=== PATIENT | female | born 1965 | race Caucasian/White ===

== ENCOUNTER 2022-10-24 15:34 | Outpatient (REF) | payer BC, SELFPAY | END 2022-10-24 15:35 | disposition home or self-care (01) | LOC: HO.HOSX 15:34 | PROVIDERS: Visit Provider Physician Assistant | DX: Z13.89 Encounter for screening for other disorder (principal) ==

== ENCOUNTER 2022-10-24 15:34 | Outpatient (AMB) | payer BC, SELFPAY ==
--- NOTE | 2022-10-24 15:56 | A.SPINEOV_ITS ---
Intake Intake Visit Reasons: Cervical myelopathy Intake Note: Mrs. Vila is here today for a f/u C/Spine surgery done 2021 @ the [place] office. Harvester Operator Required: No Assessment & Plan Assessment & Plan (1) Cervical radiculopathy: Code(s): M54.12 - Radiculopathy, cervical region Plan Mrs Vila is here in follow-up. This is a patient who underwent C4-C6 anterior cervical diskectomy done in January of last year for cervical myelopathy. She did see some improvement after surgery but her hands have still been numb, and she has dealt with some on and off neck issues. More recently though she has had developed a severe neck pain which radiates across the top of her neck into her trapezius towards her shoulder. Again her hands remain numb and weak. She is also dealing with a shoulder issue. She is going to have surgery on that in the upcoming year. On exam her hands remain weak and she still hyperreflexic. Her postoperative MRI done last March showed that she had no residual spinal cord compression but signs of myelomalacia which suggests that there was significant spinal cord injury at the time of her initial symptom presentation. She saw a surgeon locally where she lives at [facility] Dr. Spears, who sent his physician assistant golf coach in the see her. They recommended possible cortisone injection but were not more specific than that. At this time, she is here to follow up to see if there is anything we can offer in terms of input as to what could be causing the symptoms. The patient does not have any recent x- rays so I will order those. She can do those [facility] where she works. I will also order a new MRI as I do not know exactly where the symptoms are coming from at this time and I would like to have some clarifications on that. Once the MRI is completed and the x-rays are done, we will have the x-ray sent to us via mail and we can call her with the results. Total amount of time spent in this visit was 20 minutes in discussion of symptoms, previous cervical MRI imaging results and subsequent plan of care Cory Caldera MD,PhD [facility] Orders: Orders MR cervical spine wo/w con 2 Weeks M54.12 - Radiculopathy, cervical region XR cervical spine 4V Today M54.12 - Radiculopathy, cervical region Coding Level of Care Code Est Pt Level 3 (49238) Diagnoses Cervical radiculopathy M54.12
== END 2022-10-24 16:37 | disposition home or self-care (01) ==
PROVIDERS: Visit Provider Physician Assistant
DX: M54.12 Radiculopathy, cervical region (principal)
CPT/HCPCS: 99213

== ENCOUNTER 2025-03-03 10:51 | Outpatient (AMB) | payer BC, SELFPAY ==
--- NOTE | 2025-03-03 11:06 | HO.SPINEOV ---
Intake Visit Reasons: LBP MRI F/U Intake Note: Ms. Vila is here today c/o Low back pain, also she is here to F/u on the results to her MRI done at [place]. Plastics Spreading Machine Operator Required: No Assessment & Plan Assessment & Plan (1) Spondylolisthesis, lumbar region: Code(s): M43.16 - Spondylolisthesis, lumbar region Category: Medical Plan Mrs Vila is here in follow-up. This is a patient known to Dr. Caldera from C4-5, C5-6 anterior cervical diskectomy for myelopathy and spinal cord compression that was done in 2021. She also has a history of an L4-S1 posterior lumbar interbody fusion done by Dr. Muro at [facility] orthopedics department. She returns to the office today to follow-up because she has recently been having increasing back pain radiating into the hips and lower extremities. She was seen in follow up by the orthopedic surgeon that originally did her surgery and was told to undergo the typical nonoperative management including physical therapy, medication trials etc.. The patient did do all of those things without any improvement in her symptoms. Her pain is particularly aggravated with standing and walking. She has to sit down now after just a few minutes on her feet. She is due for an upcoming cortisone injection as well. She came in today to see us for an evaluation. The patient was told by the original surgeon that he does not do revision surgeries. She is looking to see if Dr. Caldera would be willing to take care of her spine. On exam, she is uncomfortable with standing, has a well healed but large incision on her back. Gait is normal. Reflexes are brisk, but that is her baseline. 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 Specifically at L3-4 comparing her MRI from 2021 to 1 done just recently in 2024 there is development of a spondylolisthesis at L3-4 and severe central canal stenosis. The flexion-extension x-rays show development of a grade 2 spondylolisthesis in the upright position. All this is suggesting instability. I am going to review her case with Dr. Caldera, but I think he would be willing to offer her an L3-4 oblique lumbar interbody fusion with revision of posterior instrumentation. She has no history of previous abdominal surgeries. Once I have a chance to review review everything with him I will get back to the patient. Total amount of time spent in this visit was 20 minutes in discussion of symptoms, lumbar imaging results and subsequent plan of care Cory Caldera MD,PhD [facility] Orders: Orders XR lumbar spine 4V min Today M43.16 - Spondylolisthesis, lumbar region Coding Level of Care Code Est Pt Level 3 (04240) Diagnoses Spondylolisthesis, lumbar region M43.16
--- OUTSIDE RECORDS SUMMARY | 2025-03-03 11:43 | XMS_ITS | Encounter Summary ---
Author Organization [facility] Address [address] [place] [address] Care Team Providers Care Payloader Machine Operator Name Role Phone Cynthia Rosas MD Primary Care Provider + Encounter Details Date Type Department Care Team (Late st Contact Info) Description 10/06/2016 Orders Only [facility] Presciption Center [facility] [address] [place] [address] Renetta Dos Santos [address] [place] [address] Social History Tobacco Use Types Packs/Day Years Used Date Smoking Tobacco: Never Assessed Comments Unknown Sex and Gender Information Value Date Recorded Sex Assigned at Female 03/11/2020 12:10 PM EST Legal Sex Female 2:33 AM EDT Gender Identity Female 07/09/2017 11:19 AM EDT Sexual Orientation Straight 03/11/2020 12 :10 PM EST documented as of this encounter Plan of Treatment Upcoming Encounters Date Type Department Care Team (Late Contact Info) Description 03/08/2025 3:15 PM EST Procedure visit [facility] [address] [place] [phone] Azar Campos MD [address] [place] [address] 03/15/2025 8:00 AM EST Office Visit [facility] B [address] [place] [address] Jason Tapia MD [address] [place] [phone] 03/22/2025 3:00 PM EST Follow-Up [facility] Internal Medicine [address] [place] [phone] Cynthia Rosas MD [address] [place] [address] 03/24/2025 8:20 AM EST Office Visit [facility] Podiatry [address] [place] [phone] Silica Spray Mixer: Jessica Yip DPM [address] [place] [phone] 05/18/2025 4:20 PM EST Follow-Up [facility] Endocrinology Clinic [address] [place] [phone] Silica Spray Mixer: Kerwin Jacobs MD [address] [place] [phone] 09/20/2025 4:00 PM EDT Office Visit [facility] Diabetes [facility] [address] [place] [phone] Silica Spray Mixer: Lolita Rodriguez MD [address] [place] [phone] 09/21/2025 3:30 PM EDT Office Visit [facility] Internal Medicine [address] [place] [phone] Cynthia Rosas MD [address] [place] [address] 02/23/2026 2:00 PM EST Office Visit [facility] Dermatology [address] [place] [phone] Erna Silva PA [address] [place] [address] documented as of this encounter Visit Diagnoses Not on filedocumented in this encounter Additional Health Concerns Infection Onset Date Last Indicated Resolved Time R/O Respiratory Virus Infection 08/26/2021 08/26/2021 10:26 PM EDT R/O Influenza 08/26/2021 08/26/2021 08/26/2021 10: 26 PM EDT COVID-19 - Suspected infection 08/26/2021 08/26/2021 08/26/2021 10:26 PM EDT documented as of this encounter Care Teams Payloader Machine Operator Relationship Specialty Start Date End Date Cynthia Rosas MD [address] [place] [address] PCP - General Internal Medicine 10/30/16 documented as of this encounter
--- OUTSIDE RECORDS SUMMARY | 2025-03-03 11:43 | XMS_ITS | Encounter Summary ---
Author Organization [facility] Address [address] [place] [address] Care Team Providers Care Envelope Stamping Machine Operator Name Role Phone Cynthia Rosas MD Primary Care Provider + Encounter Details Date Type Department Care Team (Late Contact Info) Description 09/24/2016 Orders Only [facility] Presciption Center [facility] [address] [place] [address] Letty Richardson MD [address] [place] [address] Social History Tobacco Use Types Packs/Day Years [...] Description 03/08/2025 3:15 PM EST Procedure visit [facility] [address] [place] [phone] Azar Campos MD [address] [place] [address] 03/15/2025 8:00 AM EST Office Visit [facility] B [address] [place] [address] Jason Tapia MD [address] [place] [address] 03/22/2025 3:00 PM EST Follow-Up [facility] Internal Medicine [address] [place] [phone] Cynthia Rosas MD [address] [place] [address] 03/24/2025 8:20 AM EST Office Visit [facility] Podiatry [address] [place] [address] Railway Station Manager: Jessica Yip DPM [address] [place] [phone] 05/18/2025 4:20 PM EST Follow-Up [facility] Endocrinology Clinic [address] [place] [address] Railway Station Manager: Kerwin Jacobs MD [address] [place] [phone] 09/20/2025 4:00 PM EDT Office Visit [facility] Diabetes [facility] [address] [place] [address] Railway Station Manager: Lolita Rodriguez MD [address] [place] [address] 09/21/2025 3:30 PM EDT Office Visit [facility] Internal Medicine [address] [place] [phone] Cynthia Rosas MD [address] [place] [phone] 02/23/2026 2:00 PM EST Office Visit [facility] Dermatology [address] [place] [phone] Erna Silva, SONIA [address] [place] [address] documented as of this encounter Visit Diagnoses Not on filedocumented in this encounter Additional Health Concerns Infection Onset Date Last Indicated Resolved Time R/O Respiratory Virus Infection 08/26/2021 08/26/2021 10:26 PM EDT R/O Influenza 08/26/2021 08/26/2021 08/26/2021 10: 26 PM EDT COVID-19 - Suspected infection 08/26/2021 08/26/2021 08/26/2021 10:26 PM EDT documented as of this encounter Care Teams Envelope Stamping Machine Operator Relationship Specialty Start Date End Date Cynthia Rosas MD [address] [place] [address] PCP - General Internal Medicine 10/30/16 documented as of this encounter
--- OUTSIDE RECORDS SUMMARY | 2025-03-03 11:43 | XMS_ITS | Encounter Summary ---
Author Organization [facility] Address [address] [place] [address] Care Team Providers Care Supervisor Long Goods Name Role Phone Cynthia Rosas MD Primary Care Provider + Encounter Details Date Type Department Care Team (Late Contact Info) Description 09/30/2016 Orders Only [facility] Presciption Center [facility] [address] [place] [address] Cynthia Rosas MD [address] [place] [address] Social History Tobacco Use Types Packs/Day Years [...] Description 03/08/2025 3:15 PM EST Procedure visit [facility] [address] [place] [phone] Azar Campos MD [address] [place] [address] 03/15/2025 8:00 AM EST Office Visit [facility] [address] [place] [address] Jason Tapia MD [address] [place] [address] 03/22/2025 3:00 PM EST Follow-Up [facility] Internal Medicine [address] [place] [phone] Cynthia Rosas MD [address] [place] [address] 03/24/2025 8:20 AM EST Office Visit [facility] Podiatry [address] [place] [phone] E Commerce Web Developer: Jessica Yip DPM [address] [place] [phone] 05/18/2025 4:20 PM EST Follow-Up [facility] Endocrinology Clinic [address] [place] [phone] E Commerce Web Developer: Kerwin Jacobs MD [address] [place] [phone] 09/20/2025 4:00 PM EDT Office Visit [facility] Diabetes Clinic [address] [place] [address] E Commerce Web Developer: Lolita Rodriguez MD [address] [place] [phone] 09/21/2025 3:30 PM EDT Office Visit [facility] Internal Medicine [address] [place] [phone] Cynthia Rosas MD [address] [place] [address] 02/23/2026 2:00 PM EST Office Visit [facility] Dermatology [address] [facility] [address] [place] [phone] Erna Silva, SONIA [address] [place] [address] documented as of this encounter Visit Diagnoses Not on filedocumented in this encounter Additional Health Concerns Infection Onset Date Last Indicated Resolved Time R/O Respiratory Virus Infection 08/26/2021 08/26/2021 10:26 PM EDT R/O Influenza 08/26/2021 08/26/2021 08/26/2021 10: 26 PM EDT COVID-19 - Suspected infection 08/26/2021 08/26/2021 08/26/2021 10:26 PM EDT documented as of this encounter Care Teams Supervisor Long Goods Relationship Specialty Start Date End Date Cynthia Rosas MD [address] [place] [address] PCP - General Internal Medicine 10/30/16 documented as of this encounter
--- OUTSIDE RECORDS SUMMARY | 2025-03-03 11:43 | XMS_ITS | Data Portability ---
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 However there is profound weakness on infraspinatus testing and I do suspect recurrent tearing of this tendon clinically. Therefore, we will proceed to MRI exam to assess the integrity of her surgical repair. Hold off on additional physical therapy until MRI has been completed. Continue to work light duty at this time with restrictions of no lifting greater than 5 pounds, no pushing greater than 10 pounds, and no mixing. She will follow-up in 1 month for reassessment. All questions answered. Total time for this encounter was 20 minutes. It included both eoyz-mu-srbo and ffq-tobm-rc-face time personally spent by me. During this time, I did review the patient's operative report, surgical findings, and postoperative plan of care. This also included the medically appropriate history and physical examination. I also personally reviewed the patient's Patient Questionnaire, which includes the patient's past medical and surgical history, allergies, medications, and prior surgeries. I also personally counseled the patient and educated them regarding their diagnosis and treatment options, as well as the risks, benefits, and alternatives of treatment recommended. It also included time entering this data into the electronic medical record. [email or web address] Not available 06/18/2024 15:12:31 08/03/2024 08/03/2024 She does have a compensated shoulder with range of motion that is functional, however there is moderate to significant weakness still appreciated. We discussed the viable treatment options of continuing conservative care versus muscle transfer surgery versus reverse total shoulder arthroplasty. I went over each of these options with her in the office today. She does wish to continue with conservative care at this time. Continue with home exercise program as prescribed. Follow-up in November for reassessment. All questions answered. Total time for this encounter was 20 minutes. It included both yibf-zm-ezno and gpj-zihr-vl-face time personally spent by me. During this time, I did review the patient's operative report, surgical findings, and postoperative plan of care. This also included the medically appropriate history and physical examination. I also personally reviewed the patient's Patient Questionnaire, which includes the patient's past medical and surgical history, allergies, medications, and prior surgeries. I also personally counseled the patient and educated them regarding their diagnosis and treatment options, as well as the risks, benefits, and alternatives of treatment recommended. It also included time entering this data into the electronic medical record. [email or web address] Not available 08/03/2024 14:19:57 11/30/2024 11/30/2024 She does continue with a well compensated shoulder. She is unable to undergo further revision rotator cuff arthroscopic repair secondary to poor quality tissue, as well as significant atrophy. She has reasonable function and utilizing shared decision making she would like to continue with conservative care for the shoulder realizing that eventual total shoulder arthroplasty will be indicated once pain and dysfunction become a significant issue for her. In the interim she is encouraged to continue working on her home exercise program. Follow-up with me for worsening of symptoms as needed, otherwise I will see her as needed Total time for this encounter was 20 minutes. It included both qznv-ex-hpdw and iox-piaq-pl-face time personally spent by me. During this time, I did review the patient's operative report, surgical findings, and postoperative plan of care. This also included the medically appropriate history and physical examination. I also personally reviewed the patient's Patient Questionnaire, which includes the patient's past medical and surgical history, allergies, medications, and prior surgeries. I also personally counseled the patient and educated them regarding their diagnosis and treatment options, as well as the risks, benefits, and alternatives of treatment recommended. It also included time entering this data into the electronic medical record. [email or web address] Not available 11/30/2024 09:06:57 Plan of Treatment Reminders Order Date Submit Date Provider Last Modified By Organization Details Last Modified Time Details Appointments None recorded. Lab None recorded. Referral physical therapist referral - s/p L Rotator cuff repair w/Cuff Mend augmentatio n on 02/01/24 AROM as tolerated Strengthen within pain free arc of motion Thera-bands , progress to light weights 1-2x/week x 4 weeks 2024 025 [facility], [address] [place], [address], 5 08:51:05 physical therapist referral - s/p revision Rotator cuff repair w/Cuff Mend allograft - 2 months postop Supine AAROM Progress to standing as tolerated Light isometrics 1-2x/week x 4 weeks 2023 024 [email or web address] 4 [facility], [address] [place], [address], 5 07:44:43 Procedures None recorded. Surgeries None recorded. Imaging None recorded. Medication Orders None recorded. Patient TargetsNo targets recorded. Patient InstructionsNo instructions recorded. Reason for Referral Physical Therapist Referral for Full thickness rotator cuff tear s/p revision Rotator cuff repair w/Cuff Mend allograft - 2 months postopSupine AAROMProgress to standing as tolerated Light isometrics1-2x/week x 4 weeks Referring Physician: Veronica Forbes, Orthopedic Surgery, Encounter Date: 04/01/2024 Physical Therapist Referral for Full thickness rotator cuff tear s/p L Rotator cuff repair w/Cuff Mend augmentation on 02/01/24AROM as tolerated Strengthen within pain free arc of motionThera-bands, progress to light weights1-2x/week x 4 weeks Referring Physician: Veronica Forbes, Orthopedic Surgery, Encounter Date: 05/06/2024 Results Created Date Observation Date Name Description Value Unit Range Abnormal Flag Note LastModifiedBy Organization Detail LastModifiedTime 07/12/1907/08/2024 MRI, shoul deonder, w/o contr ast [facility] - [address] Access ion Number : [id number] Patien t Name: David Vila Record Number : [id number] Date of : 1965 Date of Exam: 2024 Referr ing Physic kortney: Luis, Stepashley n [facility] [address], [address] [facility], [place] [address] Exam: MR Should er (C-) CPT 30273 - Left Room Descri ption: [facility] Siem Espr2 1.5 INDICA TION: Left should er pain. Histor y of rotato r cuff repair . Evalua te for potent ial re-tea r. TECHNI QUE: Multip lanar, multis equenc e MRI of the left should er was perfor med withou t contra st using standa rd depart mental protoc ol. COMPAR SHEKHAR: Left should er MRI 09/19/19 24 FINDIN GS: Rotato r cuff: There is a full-t hickne ss, full width tear of the supras pinatu s tendon with the torn end of the tendon retrac sandra to the level of the glenoi d. There is a full-t hickne ss, partia l width tear involv ing the anteri or fibers of the infras pinatu s tendon with low to interm ediate grade partia l tearin g of the remain ing fibers and modera te tendin osis. There is mild subsca pulari s tendin osis. The teres minor tendon is intact . There is severe fatty atroph y of the infras pinatu s muscle . There is modera te to severe fatty atroph y of the supras pinatu s muscle . There is mild reduce d bulk of the teres minor muscle . The subsca pulari s muscle is normal appear ing. Labrum : There is blunti ng and irregu larity throug hout the labrum consis tent with free edge frayin g/tear ing. In additi on, there is linear increa sed T2 signal within the fire alarm repairer ior superi or labrum consis tent with a coapte d tear. Biceps : There is marked thicke chris with interm ediate and increa sed T2 signal involv ing the genu and intra- articu lar segmen ts consis tent with severe tendin osis and partia l tearin g. Cartil age/Matt ne: Eryn us anchor ing tracts are presen t within the greate r tubero sity from previo us rotato r cuff repair s. There is subcor tical bone marrow edema and cystic change at the anteri or aspect of the anatom ic neck of the humeru s. There is modera te thinni ng of the glenoh umeral cartil age with modera te glenoh umeral joint effusi on and mild synovi al thicke chris. Acromi oclavi cular joint: There is mild to modera te hypert rophic degene rative change at the acromi oclavi cular joint with edema in the distal clavic ular head. The coraco clavic ular ligame nt is intact . The unders urface of the acromi on is slight ly concav e. Others : There are subcen timete r left axilla ry lymph nodes. There is a modera te amount of fluid in the subacr omial subdel toid bursa and also in the subcor acoid bursa consis tent with direct extens ion of joint fluid across the rotato r cuff tear. IMPRES BEULAH: 1. Full-t hickne ss, full width tear of the supras pinatu s tendon with the torn end of the tendon retrac sandra to the level of the glenoi d. Modera te to severe fatty atroph y of the supras pinatu s muscle . 2. Full-t hickne ss, partia l width tear involv ing the anteri or fibers of the infras pinatu s tendon with low to interm ediate grade partia l tearin g of the remain ing fibers and modera te tendin osis. Severe fatty atroph y of the infras pinatu s muscle . 3. Multif ocal labral tearin g as detail ed above. 4. Severe tendin osis and partia l tearin g of the genu and intra- articu lar segmen ts of the long head of the biceps tendon . 5. Modera te glenoh umeral osteoa rthrit is with modera te joint effusi on and mild synovi al thicke chris. 6. Mild to modera te hypert rophic degene rative change at the acromi oclavi cular joint with mildly type II acromi on. 7. Mild reduce d bulk of the teres minor muscle . If this radiol ogy report contai ns a blank impres beulah sectio n, it is an incomp lete radiol ogy report . Please contac t the interp reting radiol ogist or applic able radiol ogy divisi on as soon as possib le to obtain the comple sandra interp retati on. Workst ation ID: [id number] 5' 1 145.06 Electr onical ly Signed By: Mahin elizondo Perla [facility]. - Mri [address] [place] [address], [address], 07/12/2024 12:10:31 Result Notes Documentation Provider Name and Address Organization Details Recorded Time Mri, Shoulder, W/o Contrast : [facility] [[email or web address] MRI and Imaging [facility] Accession Number: [id number] Patient Name: Stacey Vila Date of : 1965 Date of Exam: 07-08-2024 Referring Physician: [facility] [address] [place] [address], [address] [place], [place] [address] Exam: MR Shoulder (C-) CPT 45653 - Left Room Description: [facility] Siem Espr2 1.5 INDICATION: Left shoulder pain. History of rotator cuff repair. Evaluate for potential re-tear. TECHNIQUE: Multiplanar, multisequence MRI of the left shoulder was performed without contrast using standard departmental protocol. COMPARISON: Left shoulder MRI 09/19/2023 FINDINGS: Rotator cuff: There is a full-thickness, full width tear of the supraspinatus tendon with the torn end of the tendon retracted to the level of the glenoid. There is a full-thickness, partial width tear involving the anterior fibers of the infraspinatus tendon with low to intermediate grade partial tearing of the remaining fibers and moderate tendinosis. There is mild subscapularis tendinosis. The teres minor tendon is intact. There is severe fatty atrophy of the infraspinatus muscle. There is moderate to severe fatty atrophy of the supraspinatus muscle. There is mild reduced bulk of the teres minor muscle. The subscapularis muscle is normal appearing. Labrum: There is blunting and irregularity throughout the labrum consistent with free edge fraying/tearing. In addition, there is linear increased T2 signal within the posterior superior labrum consistent with a coapted tear. Biceps: There is marked thickening with intermediate and increased T2 signal involving the genu and intra-articular segments consistent with severe tendinosis and partial tearing. Cartilage/Bone: Numerous anchoring tracts are present within the greater tuberosity from previous rotator cuff repairs. There is subcortical bone marrow edema and cystic change at the anterior aspect of the anatomic neck of the humerus. There is moderate thinning of the glenohumeral cartilage with moderate glenohumeral joint effusion and mild synovial thickening. Acromioclavicular joint: There is mild to moderate hypertrophic degenerative change at the acromioclavicular joint with edema in the distal clavicular head. The coracoclavicular ligament is intact. The undersurface of the acromion is slightly concave. Others: There are subcentimeter left axillary lymph nodes. There is a moderate amount of fluid in the subacromial subdeltoid bursa and also in the subcoracoid bursa consistent with direct extension of joint fluid across the rotator cuff tear. IMPRESSION: 1. Full-thickness, full width tear of the supraspinatus tendon with the torn end of the tendon retracted to the level of the glenoid. Moderate to severe fatty atrophy of the supraspinatus muscle. 2. Full-thickness, partial width tear involving the anterior fibers of the infraspinatus tendon with low to intermediate grade partial tearing of the remaining fibers and moderate tendinosis. Severe fatty atrophy of the infraspinatus muscle. 3. Multifocal labral tearing as detailed above. 4. Severe tendinosis and partial tearing of the genu and intra-articular segments of the long head of the biceps tendon. 5. Moderate glenohumeral osteoarthritis with moderate joint effusion and mild synovial thickening. 6. Mild to moderate hypertrophic degenerative change at the acromioclavicular joint with mildly type II acromion. 7. Mild reduced bulk of the teres minor muscle. If this radiology report contains a blank impression section, it is an incomplete radiology report. Please contact the interpreting radiologist or applicable radiology division as soon as possible to obtain the completed interpretation. Workstation ID: [id number] 5' 1 145.06 Electronically Signed By: Mahin Smith MD [address] [place] [address], [phone], [facility] 07/12/2024 12:10:31 Procedures Surgical History Date Name Laterality Status Provider Name and Address Organization Details Recorded Time 4 Suture Removal completed Mendez Smith MD [address] [place] [address], [phone], [facility] 03/04/2024 14:50:59 4 Suture Removal completed Camila Mcmullen [facility] 02/05/2024 10:34:24 4 Shoulder Surgery completed Ana M Peñaloza [facility] 02/04/2024 07:50:15 3 Suture Removal completed Genevayosvany Perry [facility] 12/30/2022 11:00:08 3 [facility] 12/29/2022 11:01:49 Spine Surgery (Cervical, Thoracic, Lumbar) [facility] 09/16/2022 08:02:33 Imaging Results None recorded. Procedure Notes None recorded. Medical Equipment None Reported. Allergies Allergen ID Allergen Name Allergen Category Reaction Reaction Severity Criticality Documentation Date Start Date Code Code System Note Provider Name and Address Organization Details Recorded Time 374726 Substance with sulfonami de structure and antibacte rial mechanism of action (substanc e) medicatio n rash Not available Not available 09/16/2022 37350 8003 SNOMED Geneva Orlando [facility] 3 08:02:19 986341 sulfameth oxazole medicatio n rash Not available Not available 09/16/2022 45655 RxNorm Geneva Orlando null, [place] - [facility] 3 08:02:19 040176 insect venom environme nt rash Not available Not available 04/14/2023 Geneva Orlando laguna [place] - 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 covid-19 at-home test kit 09/16 completed Not Available Not Available Not Available amoxicillin 500 mg capsule 06/17 completed Not Available Not Available Not Available atorvastatin 40 mg tablet active Not Available Not Available Not Available gabapentin 600 mg tablet active Not Available Not Available Not Available prednisone 20 mg tablet TAKE 2 TABLETS BY MOUTH DAILY FOR 5 DAYS active Not Available Not Available No t Available fluorouracil 5 % topical cream active Not Available Not Available Not Available doxycycline monohydrate 100 mg tablet TAKE 1 TABLET (100 MG TOTAL) BY MOUTH 2 TIMES A DAY FOR 7 DAYS. active Not Available Not Available No t Available nortriptylin e 25 mg capsule active Not Available Not Available Not Available cephalexin 500 mg capsule TAKE 1 CAPSULE BY MOUTH 4 TIMES A DAY FOR 7 DAYS. active Not Available Not Available No t Available neomycin-jeannine ymyxin-dexam eth 3.5 mg/mL-10,000 unit/mL-0.1% eye drops 09/07 completed Not Available Not Available Not Available losartan 25 mg tablet active Not Available Not Available No t Available gabapentin 300 mg capsule active Not Available Not Available Not Available codeine 10 mg-guaifenes in 100 mg/5 mL oral liquid TAKE 5 ML AT BEDTIME NEEDED FOR COUGH active Not Available Not Available No t Available hydrochlorot hiazide 25 mg tablet active Not Available Not Available No t Available insulin lispro (U-100) 100 unit/mL subcutaneous solution active Not Available Not Available Not Available ondansetron 4 mg disintegrati ng tablet active Not Available Not Available No t Available Microlet Lancet active Not Available Not Available Not Available oxycodone 5 mg tablet TAKE 1 TABLET EVERY 4-6 HOURS BY ORAL ROUTE NEEDED, FOR PAIN. 03/04 completed Not Available Not Available Not Available Prempro 0.3 mg-1.5 mg tablet active Not Available Not Available Not Available duloxetine 20 mg capsule,marco yed release active Not Available Not Available Not Available sodium fluoride 1.1 % dental paste active Not Available Not Available Not Available PreviDent 5000 Sensitive 1.1 %-5 % dental paste active Not Available Not Available Not Available Lantus Solostar U-100 Insulin 100 unit/mL (3 mL) subcutaneous pen 09/07 completed Not Available Not Available Not Available Humalog KwikPen (U-100) Insulin 100 unit/mL subcutaneous active Not Available Not Available Not Available Contour Next Test Strips active Not Available Not Available Not Available Contour Next EZ Meter active Not Available Not Available Not Available Baqsimi 3 mg/actuation nasal spray active Not Available Not Available Not Available Wegovy 0.25 mg/0.5 mL subcutaneous pen injector active Not Available Not Available Not Available Wegovy 0.5 mg/0.5 mL subcutaneous pen injector active Not Available Not Available Not Available Zepbound 2.5 mg/0.5 mL subcutaneous pen injector active Not Available Not Available Not Available Vitals Date Recorded Body height Body mass index (BMI) Body weight Pain severity - 0-10 verbal numeric rating [Score] - Reported Provider Name and Address Organization Details Last Updated DateTime 05/06/2024 154.94 cm 27.4 kg/m2 88870.89 [address] [facility] 05/06/2024 08:07:47 Date Recorded Body height Body mass index (BMI) Body weight Provider Name and Address Organization Details Last Updated DateTime 06/17/2024 154.94 cm 27.4 kg/m2 20702.89 g Ana M Peñaloza [facility]. 06/17/2024 09:38:06 Date Recorded Body height Body mass index (BMI) Body weight Pain severity - 0-10 verbal numeric rating [Score] - Reported Provider Name and Address Organization Details Last Updated DateTime 08/03/2024 154.94 cm 27.4 kg/m2 55132.89 g 0 Camila Mcmullen [facility]. 08/03/2024 10:04:41 Date Recorded Body height Body mass index (BMI) Body weight Pain severity - 0-10 verbal numeric rating [Score] - Reported Provider Name and Address Organization Details Last Updated DateTime 11/30/2024 154.94 cm 27.4 kg/m2 87210.89 g Kavya Medellin Gio [facility] 11/30/2024 08:47:24 Date Recorded Body height Body mass index (BMI) Body weight Provider Name and Address Organization Details Last Updated DateTime 04/01/2024 154.94 cm 27.4 kg/m2 93015.89 g Ana M Jh [facility] 04/01/2024 10:01:22 Social History Question Answer Notes LastModified by Organizat ion Details LastModified Time Tobacco Smoking Status Former Smoker Geneva laguna [facility] 09/16/2022 08:02:30 Do You Have An Advance Directive? No [email or web address] Information not available 09/16/2022 Are You Blind Or Do You Have Difficulty Seeing? No [email or web address] Information not available 09/16/2022 Is Blood Transfusion Acceptable In An Emergency? No [email or web address] Information not available 09/16/2022 What Is Your Level Of Caffeine Consumption? Moderate [email or web address] Information not available 09/16/2022 Are You Deaf Or Do You Have Serious Difficulty Hearing? No [email or web address] Information not available 09/16/2022 What Type Of Diet Are You Following? REGULAR [email or web address] Information not available 09/16/2022 Which Illicit Or Recreational Drugs Have You Used? Cannibas [email or web address] Information not available 09/16/2022 When Did You Quit Smoking? 1-5yearssince lastcigarette [email or web address] Information not available 09/16/2022 Which Of Your Hands Is Dominant? Right [email or web address] Information not available 09/16/2022 What Was The Date Of Your Most Recent Tobacco Screening? 11/30/2024 [email or web address] Information not available 11/30/2024 Have You Ever Been Counseled For Unhealthy Alcohol Use? No [email or web address] Information not available 05/06/2024 Do You Have Any Pets? Yes [email or web address] Information not available 09/16/2022 What Is Your Relationship Status? [email or web address] Information not available 09/16/2022 Has Tobacco Cessation Counseling Been Provided? No [email or web address] Information not available 05/19/2023 How Many Years Have You Smoked Tobacco? 4 [email or web address] Information not available 11/03/2023 How Many Days In The Past Year Have You Consumed 4 Or More Drinks? 0 [email or web address] Information no t available 09/16/2022 Sex: Female Functional Status Question Answer Note LastModified by Organizat ion Details LastModified Time Do you use any illicit or recreational drugs? Yes [email or web address] Information not available 09/16/2022 Do you or have you ever used any other forms of tobacco or nicotine? No [email or web address] Information not available 09/16/2022 What is your level of alcohol consumption? Occasional [email or web address] Information not available 09/16/2022 Are you currently employed? Yes [email or web address] Information not available 09/16/2022 Are you able to care for yourself independently? Yes [email or web address] Information not available 09/16/2022 What is your occupation? [employer] [email or web address] Information not available 09/16/2022 What is your exercise level? Moderate [email or web address] Information not available 09/16/2022 Mental Status Question Answer Note LastModified by Organization D etails LastModified Time Do you feel stressed (tense, restless, nervous, or anxious, or unable to sleep at night)? [id number] [email or web address] Information not available 09/16/2022 Family History Relationship Description Onset Age of this Age Resolved Age Notes LastModified by Organization Details LastModified Time Mother Hypertensive disorder [email or web address] Not available 11/12 08:44:04 Maternal Grandmother Diabetes mellitus [email or web address] Not available 11/12 08:44:04 Medical History Condition Response Diabetes (Insulin Dependent) Y Back/Neck Pain Y Neuropathy (Numbness, Pain, Tingling) Y Gynecological HistoryNo gynecological history recorded. Obstetrics History GPAL:G 0 P 0 0 0 0 Past Encounters Encounter ID Performer Location Encounter Start Date Encounter Closed Date Diagnosis/Indication Diagnosis SNOMED-CT Code Diagnosis ICD10 Code Diagnosis IMO Codes Diagnosis Note [id number] Mendez Smith MD [facility] [address] [phone] 09/16/2022 07:55:03 09/16/2022 09:51:30 Full thickness rotator cuff tear [id number] M75.121 The MRI findings were reviewed extensivel y alongside the patient and her was present with her today. She has undergone subacromia l cortisone injections and a course of physical therapy with persistent pain and dysfunctio n. At this time surgical interventi on will likely be recommende d but we will update an MRI of her shoulder first to further re-assess the extent of her rotator cuff tear and atrophy. She will follow-up with Dr. Smith once the MRI is completed to discuss surgical treatment options. She will need to recheck her hemoglobin A1c with a goal of < 8 before considerat ion for surgery. All patient questions were answered. Patient is in agreement with the plan of care. The patient is educated to call the office with any questions or concerns. Dr. Smith is in agreement with the plan of care and is a part of the medical decision making. Total time for this encounter was 30 minutes. It included both face-to-fa ce and non-face-t o-face time personally spent by me. During this time, I did review the appropriat e imaging studies and went over my interpreta tion of the studies with the patient. This also included the medically appropriat e history and physical examinatio n. I also personally reviewed the patient's Patient Questionna nitish, which includes the patient's past medical and surgical history, allergies, medication s, and prior surgeries. I also personally counseled the patient and educated them regarding their diagnosis and treatment options, as well as the risks, benefits, and alternativ es of treatment recommende d. It also included time entering this data into the electronic medical record. [id number] Mendez Smith MD [facility] [address] [place] [phone] 6 11/05/2022 14:09:00 11/05/2022 15:42:36 Full thickness rotator cuff tear [id number] M75.121 I discussed the risks and benefits of operative and nonoperati ve management of the full thickness rotator cuff tear. The potential risks of this operation include, but are not limited to: infection, neurovascu lar injury, postoperat lia stiffness, persistent pain, retear of the rotator cuff, need for further surgery, loss of range of motion, rotator cuff arthropath y, and chondrolys is, to name a few. The benefits of the surgery include reduction in pain, improvemen t in quality of life, improvemen t in function, and improvemen t in strength and endurance depending upon the quality and quantity of rotator cuff tissue found at the time of surgery. The risks of nonoperati ve management include, but are not limited to: persistent or worsening pain, further tearing of the rotator cuff with eventual rotator cuff arthropath y, secondary adhesive capsulitis , and, progressiv e loss of function, to name a few. The benefits of nonoperati ve management include avoiding the risk of anesthesia , infection, blood clots to name a few. The ultimate prognosis for the shoulder will be dependent upon the quality and quantity of rotator cuff tissue encountere d at the time of surgery. The duration of disability , similarly will dependent upon the size of the tear, and quality of tissue. The recommende d operative procedure is an arthroscop ic acromiopla sty, and arthroscop ic rotator cuff repair. The importance of compliance with abduction pillow brace use, as well as with our postoperat lia rehabilita tion program was emphasized to reduce the risk of complicati ons. Anticipate d duration of physical therapy and rehab willl be 2 - 3 months depending upon healing. All questions have been answered and informed consent is placed upon the chart. We will proceed with operative interventi on as requested. Total time for this encounter was 30 minutes. It included both face-to-fa ce and non-face-t o-face time personally spent by me. During this time, I did review the appropriat e imaging studies and went over my interpreta tion of the studies with the patient. This also included the medically appropriat e history and physical examinatio n. I also personally reviewed the patient's Patient Questionna nitish, which includes the patient's past medical and surgical history, allergies, medication s, and prior surgeries. I also personally counseled the patient and educated them regarding their diagnosis and treatment options, as well as the risks, benefits, and alternativ es of treatment recommende d. It also included time entering this data into the electronic medical record. [id number] Mendez Smith MD [facility] [address] [place] [phone] 6 12/30/2022 10:51:54 12/30/2022 11:27:24 Full thickness rotator cuff tear [id number] M75.122 The patient was seen and examined by Dr. Smith today. She will begin gentle physical therapy at this time focusing on gentle supine passive range of motion and progressio n to supine active assisted range of motion as tolerated with a maximum flexion of 90 degrees and maximum external rotation to 30 degrees. Pendulums will be permitted as well. I recommend active range of motion for the elbow, wrist, and hand. A prescripti on for physical therapy is given at today's visit. No prescripti on pain medication is requested or given at today's visit. We reviewed intraopera tive findings during today's visit. The patient will follow up in 1 month for reassessme nt and further progressio n of the program. All patient questions were answered. Patient is in agreement with the plan of care. The patient is educated to call the office with any questions or concerns. Dr. Smith is in agreement with the plan of care and is a part of the medical decision making. [id number] Mendez Smith MD [facility] [address] [place] [phone] 6 01/27/2023 11:36:47 01/27/2023 12:47:04 Full thickness rotator cuff tear [id number] M75.122 The patient is making progress with her postoperat lia rehabilita tion program. An updated physical therapy prescripti on was provided focusing on supine active assisted range of motion progressin g to standing as tolerated and light isometrics . She will follow up in 1 month for reassessme nt and further progressio n of the program. All patient questions were answered. Patient is in agreement with the plan of care. The patient is educated to call the office with any questions or concerns. Dr. Smith is in agreement with the plan of care and is a part of the medical decision making. [id number] Mendez Smith MD [facility] [address] [place] [phone] 6 02/24/2023 13:47:58 02/24/2023 14:43:58 Full thickness rotator cuff tear [id number] M75.801 [id number] MD [facility] [address] [place] [phone] 6 04/14/2023 11:38:35 04/14/2023 12:47:38 Full thickness rotator cuff tear [id number] M75.122 The patient is making slow and steady progress with her postoperat lia rehabilita tion program. She will continue with supervised physical therapy progressin g active range of motion as tolerated and gentle strengthen ing within her comfort zone utilizing thera-band s and light weights. She will follow up in 6 weeks for reassessme nt and further progressio n of the program. 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 All patient questions were answered. Patient is in agreement with the plan of care. The patient is educated to call the office with any questions or concerns. Dr. Smith is in agreement with the plan of care and is a part of the medical decision making. Total time for this encounter was 20 minutes. It included both face-to-fa ce and non-face-t o-face time personally spent by me. During this time, I did review the appropriat e imaging studies and went over my interpreta tion of the studies with the patient. This also included the medically appropriat e history and physical examinatio n. I also personally reviewed the patient's Patient Questionna nitish, which includes the patient's past medical and surgical history, allergies, medication s, and prior surgeries. I also personally counseled the patient and educated them regarding their diagnosis and treatment options, as well as the risks, benefits, and alternativ es of treatment recommende d. It also included time entering this data into the electronic medical record. [id number] MD [facility] [address] [place] [phone] 6 05/19/2023 08:58:58 05/19/2023 09:41:29 Full thickness rotator cuff tear [id number] M75.786 [id number] MD [facility] [address] [place] [phone] 6 07/07/2023 14:30:56 07/07/2023 15:06:17 Full thickness rotator cuff tear [id number] M75.735 [id number] MD [facility] [address] [place] [phone] 6 09/08/2023 08:32:02 09/08/2023 09:37:00 Full thickness rotator cuff tear [id number] M75.122 She continues to improve in regards to range of motion and supraspina tus strength. However, she continues with persistent weakness on infraspina tus testing despite compliance with her home exercise program. Recommenda tion is made for repeat MRI imaging to evaluate the integrity of her rotator cuff repair. She will follow-up once MRI is completed to discuss the next step in her plan of care. All patient questions were answered. Patient is in agreement with the plan of care. The patient is educated to call the office with any questions or concerns. Dr. Smith is in agreement with the plan of care and is a part of the medical decision making. Total time for this encounter was 20 minutes. It included both face-to-fa ce and non-face-t o-face time personally spent by me. During this time, I did review the appropriat e imaging studies and went over my interpreta tion of the studies with the patient. This also included the medically appropriat e history and physical examinatio n. I also personally reviewed the patient's Patient Questionna nitish, which includes the patient's past medical and surgical history, allergies, medication s, and prior surgeries. I also personally counseled the patient and educated them regarding their diagnosis and treatment options, as well as the risks, benefits, and alternativ es of treatment recommende d. It also included time entering this data into the electronic medical record. [id number] MD [facility] [address] [place] [phone] 6 11/03/2023 14:03:15 11/03/2023 15:23:23 Full thickness rotator cuff tear [id number] M75.268 [id number] MD [facility] [address] [place] [phone] 6 02/05/2024 10:05:55 02/05/2024 10:53:31 Full thickness rotator cuff tear [id number] M75.122 The patient will begin a gentle physician directed home exercise program at this time focusing on pendulum exercises, active elbow range of motion, shoulder shrugs, and progressio n towards table slides. The patient is instructed in each of these exercises and provided a patient education handout to work on these exercises. No prescripti on pain medication is requested or given at today's visit. Patient will follow up for reassessme nt and further progressio n of program in 1 month. Physical therapy will be initiated at that time. All patient questions were answered. Patient is in agreement with the plan of care. The patient is educated to call the office with any questions or concerns. Dr. Smith is in agreement with the plan of care and is a part of the medical decision making. [id number] Mendez Smith MD [facility] [address] [place] [phone] 6 03/04/2024 09:36:03 03/04/2024 10:06:56 Full thickness rotator cuff tear [id number] M75.815 [id number] Mendez Smith MD [facility] [address] [place] [phone] 6 04/01/2024 09:48:24 04/01/2024 10:33:57 Full thickness rotator cuff tear [id number] M75.122 The patient is making excellent progress with the postoperat lia rehabilita tion program. An updated physical therapy prescripti on was provided focusing on supine active assisted range of motion progressin g to standing as tolerated and light isometrics . The patient will follow up in 1 month for reassessme nt and further progressio n of the program. She was provided a return to work note with no lifting greater than 5 pounds and no pushing greater than 10 pounds and no mixing. All patient questions were answered. Patient is in agreement with the plan of care. The patient is educated to call the office with any questions or concerns. Dr. Smith is in agreement with the plan of care and is a part of the medical decision making. [id number] Mendez Smith MD [facility] [address] [place] [phone] 6 05/06/2024 08:00:42 05/06/2024 08:34:37 Full thickness rotator cuff tear [id number] M75.122 The patient is making excellent progress with the postoperat lia rehabilita tion program. An updated physical therapy prescripti on was provided focusing on active range of motion and gentle strengthen ing within a pain free arc of motion using Thera-band s and light weights. The patient will follow up in 1 month for further progressio n of the program. She will continue working with no lifting greater than 5 pounds and no pushing greater than 10 pounds and no mixing. All patient questions were answered. Patient is in agreement with the plan of care. The patient is educated to call the office with any questions or concerns. Dr. Smith is in agreement with the plan of care and is a part of the medical decision making. Total time for this encounter was 20 minutes. It included both face-to-fa ce and non-face-t o-face time personally spent by me. During this time, I did review the appropriat e imaging studies and went over my interpreta tion of the studies with the patient. This also included the medically appropriat e history and physical examinatio n. I also personally reviewed the patient's Patient Questionna nitish, which includes the patient's past medical and surgical history, allergies, medication s, and prior surgeries. I also personally counseled the patient and educated them regarding their diagnosis and treatment options, as well as the risks, benefits, and alternativ es of treatment recommende d. It also included time entering this data into the electronic medical record. [id number] MD [facility] [address] [place] [address] [phone] 6 06/17/2024 09:33:35 06/17/2024 11:22:11 Full thickness rotator cuff tear [id number] M75.714 [id number] MD [facility] [address] [place] [address] [phone] 6 08/03/2024 09:47:48 08/03/2024 10:50:41 Full thickness rotator cuff tear [id number] M75.474 [id number] Mendez Smith MD [facility] [address] [phone] 6 11/30/2024 08:38:12 11/30/2024 09:04:57 Full thickness rotator cuff tear [id number] M75.122 Health Concerns Section Related Observation LastModified by Organization Detai ls LastModified Time None Recorded Concern Status LastModified by Organization Details LastModified Time None Recorded Advance Directives Directive N: Payers Insurance Date Sequence Insurance Name Policy Number Policy Neal Covered Member ID Neal Member ID Guarantor Name 01/26/2025 1 [facility] [id number] Stacey Moreno Zofacundo [id number] Stacey Moreno Zorge 01/26/2025 1 [facility] [id number] Stacey Zorashok [id number] Stacey Moreno Zorge 01/26/2025 1 [facility] [place] [id number] Stacey Moreno Zorge [id number] Stacey A Zorge Notes Date Note Type Note Provider Name and Address Organization Details Recorded Time 04/01/2024 text/html ROS as noted in the HPI The patient presents for her postoperative visit following left shoulder revision arthroscopic rotator cuff repair supraspinatus and infraspinatus tendons, debridement, and augmentation with a Cuff Mend dermal allograft on 02/01/2024. She reports good pain control with Motrin. She presents with range of motion but still feels weak about the shoulder. Physical therapy is at [facility] in [place] and going well. She is scheduled to return to work on 04/18/2024. She needs a restrictions. Veronica Forbes PA-C [address] [place] [address], [phone], [facility]. 04/01/2024 12:16:37 05/06/2024 text/html ROS as noted in the HPI The patient presents for her postoperative visit following left shoulder revision arthroscopic rotator cuff repair supraspinatus and infraspinatus tendons, debridement, and augmentation with a Cuff Mend dermal allograft on 02/01/2024. She reports mild soreness after PT but no pain. She is off all analgesics. She reports excellent range of motion but still feels weakness about the shoulder. Physical therapy is at [facility] in [place] twice weekly and she thinks sometimes her therapist tries to push her too hard but is vocal with him. She has returned to work with restrictions. Veronica Forbes PA-C [address] [place], [phone], [facility]. 05/06/2024 09:03:30 06/17/2024 text/html ROS as noted in the HPI The patient presents for her postoperative visit following left shoulder revision arthroscopic rotator cuff repair supraspinatus and infraspinatus tendons, debridement, and augmentation with a Cuff Mend dermal allograft on 02/01/2024. She reports mild soreness after PT but no pain. She is off all analgesics. She reports excellent range of motion but still feels weakness about the shoulder. She has demonstrated good passive improvement in her motion, but does continue with profound weakness of external rotation. I did once again explained to her the severe pathology within her shoulder including recurrent tearing of the supraspinatus and infraspinatus tendons with grade 4 atrophy and retraction to the glenoid. Prognosis remains guarded. She has returned to work with restrictions. Mendez Smith MD [address] [place], [phone], [facility]. 06/18/2024 15:12:45 08/03/2024 text/html ROS as noted in the HPI The patient presents for her postoperative visit following left shoulder revision arthroscopic rotator cuff repair supraspinatus and infraspinatus tendons, debridement, and augmentation with a Cuff Mend dermal allograft on 02/01/2024. She reports mild soreness after PT but no pain. She is off all analgesics. She reports excellent range of motion but still feels weakness about the shoulder. She has demonstrated good passive improvement in her motion, but does continue with profound weakness of external rotation. I did once again explained to her the severe pathology within her shoulder including recurrent tearing of the supraspinatus and infraspinatus tendons with grade 4 atrophy and retraction to the glenoid. Prognosis remains guarded. She has returned to work with restrictions. She did undergo repeat MRI examination of the left shoulder and I did go over these images with her in the office today, demonstrating recurrent tearing of the entire supraspinatus with retraction to the glenoid, recurrent tearing of the infraspinatus with severe fatty atrophy of the infraspinatus. There is no sufficient tissue for further revision surgery at this time. Mendez Smith MD [address] [place], [phone], [facility]. 08/03/2024 14:20:09 11/30/2024 text/html ROS as noted in the HPI The patient presents for her postoperative visit following left shoulder revision arthroscopic rotator cuff repair supraspinatus and infraspinatus tendons, debridement, and augmentation with a Cuff Mend dermal allograft on 02/01/2024. She reports mild soreness after PT but no pain. She is off all analgesics. She reports excellent range of motion but still feels weakness about the shoulder. She has demonstrated good passive improvement in her motion, but does continue with profound weakness of external rotation. I did once again explained to her the severe pathology within her shoulder including recurrent tearing of the supraspinatus and infraspinatus tendons with grade 4 atrophy and retraction to the glenoid. Prognosis remains guarded. She has returned to work with restrictions. She did undergo repeat MRI examination of the left shoulder and I did go over these images with her in the office today, demonstrating recurrent tearing of the entire supraspinatus with retraction to the glenoid, recurrent tearing of the infraspinatus with severe fatty atrophy of the infraspinatus. There is no sufficient tissue for further revision surgery at this time. Mendez Smith MD [address] [place], [phone], [facility]. 11/30/2024 09:07:09 OBGyn Episode No OBEpisode recorded.
--- OUTSIDE RECORDS SUMMARY | 2025-03-03 11:43 | XMS_ITS | Data Portability ---
Author Organization [facility], [facility], [facility] Main Office Address [address] [place] [phone] Care Team Providers Care Furs Salesperson Name Role Phone SEVEN MARIANO Primary Care Provider SEVEN MARIANO Referring Provider Assessment Encounter Date Assessment Date Assessment LastModified by Organization Details LastModified Time 08/27/2022 08/27/2022 Carpal tunnel Syndrome of the left upper extremity. The patient and I discussed the pathophysiology , etiology and further diagnostic and therapeutic options available for treatment. I used laymen's terms to explain the anatomy of the carpal tunnel and the surgical steps used to alleviate pressure on the nerve. This included visual and written diagrams and props. We discussed that it takes time for nerve recovery and that full return of nerve function varies on the severity and chronicity of symptoms. The EMG, if obtained, does not always predict success or failure of surgical treatment but may serve as a guide in determining if full or measured recovery can be expected. The rare possibility of recurrence or continuance of symptoms was explained as a possibility and that there is no guarantee of return of full nerve function or lifelong effect of surgery. The overall discussion lasted over 30 minutes. at the end of this discussion and question and answer session I recommended that the patient have a cortisone injection placed into the left carpal tunnel to see if there is any improvement in the level of her symptoms as this is an atypical presentation for carpal tunnel. If this does seem to improve her symptoms then we can have a little bit more assurance that carpal tunnel surgery may have some benefit for her and lessening the severity of her symptoms. All questions were answered and she is comfortable with this plan. [email or web address] Not available 08/27/2022 08:42:38 Plan of Treatment Reminders Order Date Submit Date Provider Last Modified By Organization Details Last Modified Time Details Appointments None record ed. Lab None record ed. Referral None record ed. Procedures None record ed. Surgeries None record ed. Imaging None record ed. Medication Orders None record ed. Patient TargetsNo targets recorded. Patient InstructionsNo instructions recorded. Reason for Referral None Reported. Results Created Date Observation Date Name Description Value Unit Range Abnormal Flag Note LastModifiedBy Organization Detail LastModifiedTime 08/29/1906/17/2022 nerve condu ction study /EMG, carpa l tunne l syndr ome (PROC ) No observ ation record ed. BARCODE Not Available 2022 17:28:07 09/04/1906/17/2022 nerve condu ction study /EMG, carpa l tunne l syndr ome (PROC ) No observ ation record ed. BARCODE Not Available 2022 08:48:41 Result Notes None recorded. Procedures Surgical History Date Name Laterality Status Provider Name and Address Organization Details Recorded Time 08/27/2022 .BKScortis one2 completed Renaldo Lan MD [address] [place] [address], [phone], [facility] [employer] [facility] 08/27/2022 08:42:41 Imaging Results None recorded. Procedure Notes None recorded. Medical Equipment None Reported. Allergies Allergen ID Allergen Name Allergen Category Reaction Reaction Severity Criticality Documentation Date Start Date Code Code System Note Provider Name and Address Organization Details Recorded Time 87116 Bactrim medicatio n Not available Not available Not available 08/27/2022 47304 9 RxNorm Rhonda Kandi [facility], [facility] [employer] [facility] 08:00:29 Medications Name Sig Start Date Stop Date Status Note LastModified by Organization Details LastModified Time covid-19 at-home test kit kit active Not Available Not Available Not Available on/go covid-19 antigen self-test kit 08/27 completed Not Available Not Available Not Available 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-19 at-home test kit 08/27 completed Not Available Not Available Not Available amoxicillin 500 mg capsule 08/27 completed Not Available Not Available Not Available atorvastati n 40 mg tablet active Not Available Not Available Not Available fluorouraci l 5 % topical cream active Not Available Not Available Not Available losartan 25 mg tablet active Not Available Not Available No t Available gabapentin 300 mg capsule active Not Available Not Available Not Available hydrochloro thiazide 25 mg tablet active Not Available Not Available No t Available oxycodone 5 mg tablet TAKE 1-2 TABLETS BY MOUTH EVERY 4 HOURS NEEDED FOR MODERATE PAIN SCALE 4-6 active Not Available Not Available No t Available Prempro 0.3 mg-1.5 mg tablet active Not Available Not Available Not Available PreviDent 5000 Sensitive 1.1 %-5 % dental paste active Not Available Not Available Not Available Lantus Solostar U-100 Insulin 100 unit/mL (3 mL) subcutaneou s pen active Not Available Not Available Not Available Humalog KwikPen (U-100) Insulin 100 unit/mL subcutaneou s active Not Available Not Available Not Available Baqsimi 3 mg/actuatio n nasal spray active Not Available Not Available Not Available Vitals None Recorded Social History None recorded. Functional Status None recorded. Mental Status None recorded. Family History Nothing Reported. Medical History Condition Response Coronary Artery Disease N Anxiety/Depression N Gout N Blood Transfusion N Hernia N COPD N Lung Disease N Pacemaker N Edema N Deep Vein Thrombosis N Varicose Veins N Orthotics N Arthritis N Blood Clot N Cancer N Stroke N Leg or Foot Ulcers N Raynaud's Disease N Polio N High Cholesterol N Liver Disease N Organ Transplant N Rheumatoid Arthritis N Fibromyalgia N Foot Deformity N Dialysis N Kidney Disease N Heart Problems N Artificial Joints N Migraines N Thyroid Problems N Anemia N Back Pain N Ulcers N Diabetes Y Bleeding Disorder N Seizures/Epilepsy N Tuberculosis N AIDS/HIV N Asthma N Substance Abuse N Peripheral Vascular Disease N Hepatitis N Heart Disease N Pulmonary Embolism N Hypertension N Osteoporosis N Gynecological HistoryNo gynecological history recorded. Obstetrics History GPAL:G 0 P 0 0 0 0 Past Encounters Encounter ID Performer Location Encounter Start Date Encounter Closed Date Diagnosis/Indication Diagnosis SNOMED-CT Code Diagnosis ICD10 Code Diagnosis IMO Codes Diagnosis Note [id number] Renaldo Lan MD S Main Office [address] [place] [phone] 08/27/2022 07:44:20 08/28/2022 07:17:28 Bilateral carpal tunnel syndrome 1496200812 [id number] G56.03 Health Concerns Section Related Observation LastModified by Organization Neva bueno LastModified Time None Recorded Concern Status LastModified by Organization Details LastModified Time None Recorded Advance Directives Directive None Recorded Payers Insurance Date Sequence Insurance Name Policy Number Policy Neal Covered Member ID Neal Member ID Guarantor Name 08/27/2022 1 [facility] [id number] Stacey Vila [id number] Stacey Julito Notes Date Note Type Note Provider Name and Address Organization Details Recorded Time 08/27/2022 text/html this patient is referred for evaluation of bilateral hand numbness worse on the left side. 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 She has had recent neck surgery in January which she believes was a C3-C6 fusion and corpectomy. She has been having some residual consistent numbness in the ulnar 4 digits of both hands. She is also a type I diabetic without any known diabetic neuropathy at present. She does not have any increasing symptoms at night she states that the thumb is excluded from the symptoms. Renaldo Lan MD [address] [place] [address],[address], [place], [phone], [facility], [facility] 08/27/2022 08:43:57 OBGyn Episode No OBEpisode recorded.
--- OUTSIDE RECORDS SUMMARY | 2025-03-03 11:43 | XMS_ITS | Encounter Summary ---
Author Organization [facility] Address [address] [place] [address] Care Team Providers Care Mainstreaming Facilitator Name Role Phone Cynthia Rosas MD Primary Care Provider + Encounter Details Date Type Department Care Team (Late st Contact Info) Description 01/31/2025 myChart Message [facility] Internal Medicine [address] [place] [phone] Cynthia Rosas MD [address] [place] [address] non urgent medical question Social History Tobacco Use Types Packs/Day Years Used Date Smoking Tobacco: Former Cigarettes 23.4 1 - 06/11/2020 Smokeless Tobacco: Never Comments:: Alcohol Use Standard Drinks/Week Comments Yes 0 (1 standard drink = 0.6 oz pur e alcohol) social [facility] Utilities Answer Date Recorded In the past 12 months has [employer], gas, oil, or water [employer] threatened to shut off services in your home? No 09/08/2024 Hunger Vital Sign Answer Date Recorded Within the past 12 months, y ou worried that your food would run out before you got the money to buy more. Never true 09/09/19 25 Within the past 12 months, t he food you bought just didn't last and you didn't have money to get more. Never true 09/08/2024 Transportation Answer Date Recorded In the past 12 months, has l ack of reliable transportation kept you from medical appointments, meetings, work or from getting things needed for daily living? No 09/08/2024 Housing Answer Date Recorded Housing Risk Low 2 09/08/2024 Housing Risk Medium Not on file 09/08/2024 Housing Risk High Not on file 09/08/2024 What is your living situation today? LSSTEADY 09/08/2024 Comments No Sex and Gender Information Value Date Recorded Sex Assigned at Female 03/11/2020 12:10 PM EST Legal Sex Female 2:33 AM EDT Gender Identity Female 07/09/2017 11:19 AM EDT Sexual Orientation Straight 03/11/2020 12 :10 PM EST documented as of this encounter Miscellaneous Notes * Telephone Encounter - Gunjan Rico LPN - 02/03/2025 4:10 PM EDT Appt scheduled for 02/07 at 1:15p with dr Fatima. Pt aware. documented in this encounter Plan of Treatment Upcoming Encounters Date Type Department Care Team (Late st Contact Info) Description 03/08/2025 3:15 PM EST Procedure visit [facility] at [address] [phone] Azar Campos MD [address] [place] [address] 03/15/2025 8:00 AM EST Office Visit [facility] B [address] [place] [address] Jason Tapia MD [address] [place] [address] 03/22/2025 3:00 PM EST Follow-Up [facility] Internal Medicine [address] [place] [phone] Cynthia Rosas MD [address] [place] [address] 03/24/2025 8:20 AM EST Office Visit [facility] Podiatry [address] [place] [address] Can Filling Machine Operator: Jessica Yip DPM [address] [place] [address] 05/18/2025 4:20 PM EST Follow-Up [facility] Endocrinology Clinic [address] [place] [address] Can Filling Machine Operator: Kerwin Jacobs MD [address] [place] [address] 09/20/2025 4:00 PM EDT Office Visit [facility] Diabetes Clinic [address] [place] [address] Can Filling Machine Operator: Lolita Rodriguez MD [address] [place] [address] 09/21/2025 3:30 PM EDT Office Visit [facility] Internal Medicine [address] [place] [address] Cynthia Rosas MD [address] [place] [address] 02/23/2026 2:00 PM EST Office Visit [facility] Dermatology [address] [facility] [address] [place] [phone] Erna Silva PA [address] [place] [address] documented as of this encounter Visit Diagnoses Not on filedocumented in this encounter Care Teams Mainstreaming Facilitator Relationship Specialty Start Date End Date Cynthia Rosas MD [address] [place] [address] PCP - General Internal Medicine 10/30/16 documented as of this encounter
--- OUTSIDE RECORDS SUMMARY | 2025-03-03 11:43 | XMS_ITS | Encounter Summary ---
Author Organization [facility] Address [address] [place] [address] Care Team Providers Care Compensator Worker Name Role Phone Cynthia Rosas MD Primary Care Provider + Encounter Details Date Type Department Care Team (Late st Contact Info) Description 02/15/2025 myChart Message [facility] Internal Medicine [address] [place] [phone] Cynthia Rosas MD [address] [place] [address] Non urgent medical question Social History Tobacco Use Types Packs/Day Years Used Date Smoking Tobacco: Former Cigarettes 23.4 1 - 06/11/2020 Smokeless Tobacco: Never Comments:: Alcohol Use Standard Drinks/Week Comments Yes 0 (1 standard drink = 0.6 oz pur e alcohol) social [facility] Utilities Answer Date Recorded In the past 12 months has [employer], gas, oil, or water [employer] threatened to shut off services in your [...] Description 03/08/2025 3:15 PM EST Procedure visit [facility] at [address] [phone] Azar Campos MD [address] [place] [address] 03/15/2025 8:00 AM EST Office Visit [facility] B [address] [place] [address] Jason Tapia MD [address] [place] [address] 03/22/2025 3:00 PM EST Follow-Up [facility] Internal Medicine [address] [place] [phone] Cynthia Rosas MD [address] [place] [address] 03/24/2025 8:20 AM EST Office Visit [facility] Building Podiatry [address] [place] [address] Internal Auditor: Jessica Yip DPM [address] [place] [address] 05/18/2025 4:20 PM EST Follow-Up [facility] [address] [place] [address] Internal Auditor: Kerwin Jacobs MD [address] [place] [address] 09/20/2025 4:00 PM EDT Office Visit [facility] [address] [place] [address] Internal Auditor: Lolita Rodriguez MD [address] [place] [address] 09/21/2025 3:30 PM EDT Office Visit [facility] Internal Medicine [address] [place] [phone] Cynthia Rosas MD [address] [place] [address] 02/23/2026 2:00 PM EST Office Visit [facility] Dermatology [address] [facility] [address] [place] [address] Erna Silva PA [address] [place] [address] documented as of this encounter Visit Diagnoses Not on filedocumented in this encounter Care Teams Compensator Worker Relationship Specialty Start Date End Date Cynthia Rosas MD [address] [place] [phone] PCP - General Internal Medicine 10/30/16 documented as of this encounter
--- OUTSIDE RECORDS SUMMARY | 2025-03-03 11:43 | XMS_ITS | Encounter Summary ---
Author Organization [facility] Address [address] [place] [address] Care Team Providers Care Sammying Machine Operator Name Role Phone Cynthia Rosas MD Primary Care Provider + Encounter Details Date Type Department Care Team (Late st Contact Info) Description 02/22/2025 Results Follow-Up [facility] Internal Medicine [address] [place] [phone] Cynthia Rosas MD [address] [place] [address] Social History Tobacco Use Types Packs/Day Years Used Date Smoking Tobacco: Former Cigarettes 23.4 1 - 06/11/2020 Smokeless Tobacco: Never Comments:: Alcohol Use Standard Drinks/Week Comments Yes 0 (1 standard drink = 0.6 oz pur e alcohol) social [facility] Utilities Answer Date Recorded In the past 12 months has [employer], gas, oil, or water [employer] threatened to shut off services in your [...] Description 03/08/2025 3:15 PM EST Procedure visit [facility] at [address] [phone] Azar Campos MD [address] [place] [address] 03/15/2025 8:00 AM EST Office Visit [facility] B [address] [place] [address] Jason Tapia MD [address] [place] [address] 03/22/2025 3:00 PM EST Follow-Up [facility] Internal Medicine [address] [place] [phone] Cynthia Rosas MD [address] [place] [address] 03/24/2025 8:20 AM EST Office Visit [facility] Building Podiatry [address] [place] [address] Communication Consultant: Jessica Yip DPM [address] [place] [address] 05/18/2025 4:20 PM EST Follow-Up [facility] Endocrinology Clinic [address] [place] [address] Communication Consultant: Kerwin Jacobs MD [address] [place] [address] 09/20/2025 4:00 PM EDT Office Visit [facility] Diabetes Clinic [address] [place] [address] Communication Consultant: Lolita Rodriguez MD [address] [place] [address] 09/21/2025 3:30 PM EDT Office Visit [facility] Internal Medicine [address] [place] [address] Cynthia Rosas MD [address] [place] [address] 02/23/2026 2:00 PM EST Office Visit [facility] Dermatology [address] [facility] [address] [place] [address] Erna Silva PA [address] [place] [address] documented as of this encounter Visit Diagnoses Not on filedocumented in this encounter Care Teams Sammying Machine Operator Relationship Specialty Start Date End Date Cynthia Rosas MD [address] [place] [address] PCP - General Internal Medicine 10/30/16 documented as of this encounter
--- OUTSIDE RECORDS SUMMARY | 2025-03-03 11:43 | XMS_ITS | Encounter Summary ---
Author Organization [facility] Address [address] [place] [address] Care Team Providers Care Crayon Grader Name Role Phone Cynthia Rsoas MD Primary Care Provider + Encounter Details Date Type Department Care Team (Late st Contact Info) Description 08/26/2021 Lab Requisition [facility] [address] [place] [address] [place], [facility] [address] [facility] [address] [place] [address] Social History Tobacco Use Types Packs/Day Years Used Date Smoking Tobacco: Every Day Cigarettes 19.8 Started: 01/16/1997; Last attempted to quit: 11/16/2016 Smokeless Tobacco: Never Comments:: Alcohol Use Standard Drinks/Week Comments Yes 0 (1 standard drink = 0.6 oz pur e alcohol) social Transportation Answer Date Recorded Please hedy the areas for ich the patient would like information or assistance: None Apply 11/29/2020 Lack of Transportation (Medical) Not on file 11/29/2020 Housing Stability Answer Date Recorded Please hedy the areas for ich the patient would like information or assistance: None Apply 11/29/2020 Unable to Pay for Housing in the Last Year Not o n file 11/29/2020 Last EPDS Total Score Not on file 11/29/2020 Unstable Housing in the Last Year Not on file 11/29/2020 Comments No Sex and Gender Information Value [...] Description 03/08/2025 3:15 PM EST Procedure visit [facility] at [address] [phone] Azar Campos MD [address] [place] [address] 03/15/2025 8:00 AM EST Office Visit [facility] B [address] [place] [address] Jason Tapia MD [address] [place] [address] 03/22/2025 3:00 PM EST Follow-Up [facility] Internal Medicine [address] [place] [address] Cynthia Rosas MD [address] [place] [address] 03/24/2025 8:20 AM EST Office Visit [facility] Building Podiatry [address] [place] [address] Communications Billing Analyst: Jessica Yip DPM [address] [place] [address] 05/18/2025 4:20 PM EST Follow-Up [facility] Endocrinology Clinic [address] [place] [address] Communications Billing Analyst: Kerwin Jacobs MD [address] [place] [address] 09/20/2025 4:00 PM EDT Office Visit [facility] Building Diabetes Clinic [address] [place] [address] Communications Billing Analyst: Lolita Rodriguez MD [address] [place] [address] 09/21/2025 3:30 PM EDT Office Visit [facility] Internal Medicine [address] [place] [phone] Cynthia Rosas MD [address] [place] [address] 02/23/2026 2:00 PM EST Office Visit [facility] Dermatology [address] [facility] [address] [place] [phone] Erna Silva PA [address] [place] [address] documented as of this encounter Procedures * Due to [place] state law, this organization might not be sharing negative HIV tests. Procedure Name Priority Date/Time Associated Diagnosis Comments MVL QS - COVID-19, FLU A/B & RSV RNA PCR, SYMPTOMATIC Routine 08/26/2021 4:39 PM EDT documented in this encounter Results * Due to [facility] law, this organization might not be sharing negative HIV tests. * COVID-19, Flu A/B & RSV RNA PCR, Symptomatic (08/26/2021 4:39 PM EDT) SARS CoV 2 RNA, RT PCR Not Detected Not Detected [employer] 08/26/2021 10:26 PM EDT [facility] [email or web address] CLINICAL PATHOLOGY LABORATORY Comment:A Not Detected (Nega tive) test result is indicative of the absence of SARS-CoV-2 RNA at the level of LoD (Limit of Detection). A negative result does not rule out the possibility of COVID-19 and should not be used as the sole basis for treatment or patient management decisions. If COVID-19 is still suspected, based on exposure history together with other clinical findings, re-testing should be considered. Flu A/B RNA, RT PCR Not Detected Not Detected [employer] 08/26/2021 10:26 PM EDT [facility] [employer] CLINICAL PATHOLOG[facility] LABORAT[facility] Comment:Negative results do not preclude infection and should not be used as the sole basis for diagnosis, treatment or other patient management decisions. Negative results must be combined with clinical observations, patient history, and/or epidemiological information. RSV RNA, RT PCR Not Detected Not Detected [employer] 08/26/2021 10:26 PM EDT [facility] [employer] [facility] Comment:Negative results do not preclude infection and should not be used as the sole basis for diagnosis, treatment or other patient management decisions. Negative results must be combined with clinical observations, patient history, and/or epidemiological information. Saliva Mouth region structure / Unknown 08/26/2021 4:39 PM EDT 08/26/2021 4:39 PM EDT Narrative [facility] [employer] [facility] - 08/26/2021 10:26 PM EDT These tests were developed, validated, and their performance characteristics determined by the [facility] at [facility] under CLIA [id number]. They have not been cleared or approved by the U.S. Food and Drug Administration (FDA). FDA Policy for Diagnostic Tests for Coronavirus Disease-2019 during the Public Health Emergency issued June 27, 2019, is followed. [facility] LAB BODY FLUIDS AND STOOLS ORDERABLES Final Result [facility] [email or web address] CLINICAL PATHOLOGY LABORATORY [address] [place] [address], documented in this encounter Visit Diagnoses Not on filedocumented in this encounter Additional Health Concerns Infection Onset Date Last Indicated Resolved Time R/O Respiratory Virus Infection 08/26/2021 2 08/26/2021 10:26 PM EDT R/O Influenza 08/26/2021 08/26/202108/26/2021 10: 26 PM EDT COVID-19 - Suspected infection 08/26/2021 08/26/2021 08/26/2021 10:26 PM EDT documented as of this encounter Care Teams Crayon Grader Relationship Specialty Start Date End Date Cynthia Rosas MD [address] [place] [address] PCP - General Internal Medicine 10/30/16 documented as of this encounter
--- OUTSIDE RECORDS SUMMARY | 2025-03-03 11:43 | XMS_ITS | Encounter Summary ---
Author Organization [facility] Address [address] [place] [address] Care Team Providers Care Superintendent [employer] Name Role Phone FatimaCynthia dominguez Lester Primary Care Provider [phone] Encounter Details Date Type Department Care Team (Late Contact Info) Description 02/14/2021 Orders Only [facility] Pre-Admission Testing [address] [place] [address] Valentina Acevedo NP Social History Tobacco Use Types Packs/Day Years Used Date Smoking Tobacco: Former Cigarettes Q uit: 09/26/2020 Smokeless Tobacco: Never Alcohol Use Standard Drinks/Week Comments Yes 1 (1 standard drink = 0.6 oz pur e alcohol) Comments No Sex and Gender Information Value Date Recorded Sex Assigned at Not on file Legal Sex Female 8:10 AM EST Gender Identity Not on file Sexual Orientation Not on file documented as of this encounter Plan of Treatment Upcoming Encounters Date Type Department Care Team (Late Contact Info) Description 03/23/2025 3:40 PM EST Minor Procedure/Test [facility] Orthopedic Surgery-Entrance [address] [place] [address] Gómez Demarco MD [address] [place] [address] AUTH# [id number] documented as of this encounter Procedures * Due to [place] state law, this organization might not be sharing negative HIV tests. 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 Hypoglycemia due to type 1 diabetes mellitus Colloid nodular goiter Cervical spinal stenosis CBC INCLUDES DIFFERENTIAL AND PLATELET COUNT Routine 02/14/2021 4:13 PM EDT Pre-op exam Lumbosacral radiculopathy due to degenerative joint disease of spine Essential hypertension Gastroesophageal reflux disease without esophagitis 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 Hypoglycemia due to type 1 diabetes mellitus Colloid nodular goiter Cervical spinal stenosis VENIPUNCTURE Routine 02/14/2021 4:13 PM EDT Pre-op exam Lumbosacral radiculopathy due to degenerative joint disease of spine Essential hypertension Gastroesophageal reflux disease without esophagitis 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 Hypoglycemia due to type 1 diabetes mellitus Colloid nodular goiter Cervical spinal stenosis HEMOGLOBIN A1C Routine 02/14/2021 4:13 PM EDT Pre-op exam Lumbosacral radiculopathy due to degenerative joint disease of spine Essential hypertension Gastroesophageal reflux disease without esophagitis 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 Hypoglycemia due to type 1 diabetes mellitus Colloid nodular goiter Cervical spinal stenosis BASIC METABOLIC PANEL WITH (GFR) Routine 02/14/2021 4:13 PM EDT Pre-op exam Lumbosacral radiculopathy due to degenerative joint disease of spine Essential hypertension Gastroesophageal reflux disease without esophagitis 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 * EKG-TO BE READ & BILLED BY ADULT OR PEDIATRIC CARDIOLOGY (02/14/2021 4:21 PM EDT) VENTRICULAR RATE 67 BPM MUS E EKG SYSTEM ATRIAL RATE 67 BPM MUSE EKG SYSTEM P-R INTERVAL 174 ms MUSE EK G SYSTEM QRS DURATION 94 ms MUSE EK G SYSTEM QT 430 ms MUSE EKG SYSTEM QTC 454 ms MUSE EKG SYSTEM P AXIS 62 degrees MUSE EKG SYSTEM R AXIS 57 degrees MUSE EKG SYSTEM T AXIS 35 degrees MUSE EKG SYSTEM EKG INTERPRETATION Normal sinus rhythm Normal ECG No previous ECGs available Confirmed by VICTOR MANUEL ISAACS ([id number]) on 02/14/2021 7:57:08 PM MUSE EKG SYSTEM 02/14/2021 4:21 PM EDT 02/14/2021 7:57 PM EDT Valentina Acevedo NP CARDIOVASCULAR-WITH INBSKT RTG Final Result MUSE EKG SYSTEM * (ABNORMAL) BASIC METABOLIC PANEL WITH (GFR) (02/14/2021 4:13 PM EDT) Glucose 46(L) 65 - 99 mg/dL [facility] Comment:Fasting reference in terval Urea Nitrogen Blood (BUN) 21 7 - 25 mg/dL [facility] Creatinine 0.75 0.50 - 1.05 mg/dL [facility] Comment: For patients >49 years of age, the reference limit for Creatinine is approximately 13% higher for people identified as -[place]. EGFR 90 > OR = 60 mL/min/1 .73m2 [facility] GFR () 105 > OR = 60 mL/min/1 .73m2 [facility] BUN/Creatinine Ratio NOT APPLICABLE 6 - 22 (calc) [facility] Sodium 139 135 - 146 mmol/L [facility] Potassium 4.0 3.5 - 5.3 mmol/L [facility] Chloride 99 98 - 110 mmol/L [facility] Carbon dioxide 32 20 - 32 mmol/L [facility] Calcium 10.5(H) 8.6 - 10.4 mg/dL [facility] 02/14/2021 4:13 PM EDT 02/14/2021 11:41 PM EDT Narrative [facility] - 02/15/2021 5:47 AM EDT Please note that this estimated GFR does not include an adjustment for the patient's height or weight, and can therefore, be viewed as reliable only for patients with heights between 60 and 72 . More precise quantification using a 24-hour urine sample or height-based algorithm is recommended for patients outside of this range of height and for those individuals with more precise needs for GFR calculation. Resulting Agency Comment [id number] Valentina Acevedo NP LABORATORY Final Resul t Performing Organization Address City/[facility]/ZIP Co de Phone Number [facility] [address] [place] [address] * CBC INCLUDES DIFFERENTIAL AND PLATELET COUNT (02/14/2021 4:13 PM EDT) WBC 7.0 3.8 - 10.8 Thousand/u L [facility] RBC 4.01 3.80 - 5.10 Million/uL [facility] Hemoglobin 12.9 11.7 - 15.5 g/dL [facility] Hematocrit 37.8 35.0 - 45.0 % [facility] MCV 94.3 80.0 - 100.0 fL [facility] MCH 32.2 27.0 - 33.0 pg [facility] MCHC 34.1 32.0 - 36.0 g/dL [facility] RDW 11.7 11.0 - 15.0 % [facility] PLT 372 140 - 400 Thousand/u L [facility] MPV 9.9 7.5 - 12.5 fL [facility] Neutrophils # 3976 1500 - 7800 cells/uL [facility] Lymphocytes # 1533 850 - 3900 cells/uL [facility] Monocytes # 896 200 - 950 cells/uL [facility] Eosinophils # 497 15 - 500 cells/uL [facility] Basophils # 98 0 - 200 cells/uL [facility] Neutrophils % 56.8 % [facility] Lymphocytes % 21.9 % [facility] Monocytes % 12.8 % [facility] Eosinophils % 7.1 % [facility] Basophils % 1.4 % [facility] 02/14/2021 4:13 PM EDT 02/14/2021 11:41 PM EDT Narrative Resulting Agency Comment [id number] Valentina Acevedo NP LAB SAME DAY RESULT Final R esult Performing Organization Address City/[facility]/ZIP Co de Phone Number [facility] [address] [place] [address] * (ABNORMAL) HEMOGLOBIN A1C (02/14/2021 4:13 PM EDT) Hemoglobin A1C 7.0(H) <5.7 % of total Hgb [facility] Comment: For someone without known diabetes, a hemoglobin A1c value of 6.5% or greater indicates that they may have diabetes and this should be confirmed with a follow-up test. For someone with known diabetes, a value <7% indicates that their diabetes is well controlled and a value greater than or equal to 7% indicates suboptimal control. A1c targets should be individualized based on duration of diabetes, age, comorbid conditions, and other considerations. Currently, no consensus exists regarding use of hemoglobin A1c for diagnosis of diabetes for children. Estimated Average Glucose 172 mg/dL (calc) [facility] 02/14/2021 4:13 PM EDT 02/14/2021 11:41 PM EDT Narrative Resulting Agency Comment [id number] Valentina Acevedo NP LABORATORY Final Resul t Performing Organization Address City/[facility] Co de Phone Number [facility] [address] [place] [address] * THYROID CASCADING REFLEX (02/14/2021 4:13 PM EDT) Pathologist [facility] TSH 1.18 mIU/L [facility] Comment: Reference Range > or = 20 Years 0.40-4.50 Ranges First trimester 0.26-2.66 Second trimester 0.55-2.73 Third trimester 0.43-2.91 02/14/2021 4:13 PM EDT 02/14/2021 11:41 PM EDT Narrative Resulting Agency Comment [id number] Valentina Acevedo NP LABORATORY Final Resul t Performing Organization Address City/[facility] Co de Phone Number [facility] [address] [place] [address] * MRSA CULTURE SCREEN, NASAL ONLY (02/14/2021 3:49 PM EDT) Pathologist [facility] Methicillin Resistant Staphylococcus Aureus Screen SEE NOTE [facility] Comment: MRSA CULTURE SCREEN Micro Number: [id number] Test Status: Final Specimen Source: Not given Specimen Quality: Adequate Result: No methicillin resistant Staphylococcus aureus (MRSA) isolated. 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
--- OUTSIDE RECORDS SUMMARY | 2025-03-03 11:43 | XMS_ITS | Encounter Summary ---
Author Organization [facility] Address [address] [place] [address] Care Team Providers Care Decorating And Assembly Supervisor Name Role Phone Cynthia Fatima Lester Primary Care Provider [phone] Encounter Details Date Type Department Care Team (Late Contact Info) Description 04/01/2021 Orders Only [facility] Orthopedic Surgery [address] [phone] Devin Panda MD [address] [place] [address] Social History Tobacco Use Types Packs/Day Years [...] Description 03/23/2025 3:40 PM EST Minor Procedure/Test [facility] Orthopedic Surgery-Entrance C [address] [place] [address] Gómez Demarco MD [address] [place] [address] AUTH# [id number] documented as of this encounter Results * Due to [place] state law, this organization might not be sharing negative HIV tests. * XRAY SPINE, LUMBOSACRAL; 2 OR 3 VIEWS FC (04/02/2021 12:43 PM EST) Anatomical Region Laterality Modality Spine Radiographic Devika ging 04/02/2021 5:40 PM EST Narrative 04/02/2021 5:40 PM EST CONTRAST: 3 views lumbar spine Comparison: 11/26/20 Findings: Since prior exam, patient has undergone posterior fusion hardware placement L4-S1. Hardware and vertebral alignment appear good, with no radiographic evidence of hardware failure. Disc space narrowing L5-S1 is stable. Remaining intervertebral disc heights appear maintained. There is been posterior decompression L4-L5.. Impression: 1. Interval posterior decompression and posterior spinal fusion as described above. No evidence of hardware failure. Procedure Note Derik Guajardo MD - 04/02/2021 CONTRAST: 3 views lumbar spine Comparison: 11/26/20 Findings: Since prior exam, patient has undergone posterior fusion hardwareplacement L4-S1. Hardware and vertebral alignment appear good, with no radiographic evidence of hardware failure. Disc space narrowing L5-S1 is stable.Remaining intervertebral disc heights appear maintained. There is been posterior decompression L4-L5.. Impression: 1. Interval posterior decompression and posterior spinal fusion asdescribed above. No evidence of hardware failure. Devin Panda MD IMG XRAY NO CONTRAST ORDERABLES Final Result documented in this encounter Visit Diagnoses Diagnosis Status post lumbar spine operative procedure for decompression of spinal cord- Primary Status post lumbar spine operative procedure for decompression of spinal cord documented in this encounter Care Teams Decorating And Assembly Supervisor Relationship Specialty Start Date End Date Cynthia Fatima [address] [place] [address] PCP - General Internal Medicine 05/21/20 documented as of this encounter
--- OUTSIDE RECORDS SUMMARY | 2025-03-03 11:44 | XMS_ITS | Encounter Summary ---
Author Organization [facility] Address [address] [place] [address] Care Team Providers Care Bench Jeweler Name Role Phone Cynthia Rosas MD Primary Care Provider + Encounter Details Date Type Department Care Team (Late st Contact Info) Description 08/18/2017 myChart Message [facility] Internal Medicine [address] [place] [phone] Cynthia Rosas MD [address] [place] [address] RE: Non-Urgent Medical Question Social History Tobacco Use Types Packs/Day Years Used Date Smoking Tobacco: Former Cigarettes 19.8 1 - 11/16/2016 Smokeless Tobacco: Never Comments:: Alcohol Use Standard Drinks/Week Comments Yes 0 (1 standard drink = 0.6 oz pur e alcohol) social Comments No Sex and Gender Information Value Date Recorded Sex Assigned at Female 03/11/2020 12:10 PM EST Legal Sex Female 2:33 AM EDT Gender Identity Female 07/09/2017 11:19 AM EDT Sexual Orientation Straight 03/11/2020 12 :10 PM EST documented as of this encounter Miscellaneous Notes * Telephone Encounter - SARAH Mariee - 08/18/2017 2:45 PM EDT Has this question been answered? * Telephone Encounter - SARAH Mariee - 08/18/2017 2:45 PM EDTFrom: Stacey Vila To: Cynthia Rosas MD Sent: 08/18/2017 2:25 PM EDT Subject: Non-Urgent Medical Question I have an appointment for a biopsy on september 10,would you like to postpone our visit on the until after that. My actual physical is on October 07 shall we wait until then. If anything comes from the biopsy than we can make a sooner appointment. Let me know what you want to do. Stacey documented in this encounter Plan of Treatment Upcoming Encounters Date Type Department Care Team (Late st Contact Info) Description 03/08/2025 3:15 PM EST Procedure visit [facility] at [address] [phone] Azar Campos MD [address] [place] [address] 03/15/2025 8:00 AM EST Office Visit [facility] B [address] [place] [address] Jason Tapia MD [address] [place] [address] 03/22/2025 3:00 PM EST Follow-Up [facility] Internal Medicine [address] [place] [address] Cynthia Rosas MD [address] [place] [address] 03/24/2025 8:20 AM EST Office Visit [facility] Building Podiatry [address] [place] [address] Transport Manager: Jessica Yip DPM [address] [place] [address] 05/18/2025 4:20 PM EST Follow-Up [facility] Endocrinology Clinic [address] [place] [address] Transport Manager: Kerwin Jacobs MD [address] [place] [address] 09/20/2025 4:00 PM EDT Office Visit [facility] Diabetes Clinic [address] [place] [address] Transport Manager: Lolita Rodriguez MD [address] [place] [address] 09/21/2025 3:30 PM EDT Office Visit [facility] Internal Medicine [address] [place] [address] Cynthia Rosas MD [address] [place] [address] 02/23/2026 2:00 PM EST Office Visit [facility] Dermatology [address] [facility] [address] [place] [phone] Erna Silva PA [address] [place] [address] documented as of this encounter Visit Diagnoses Not on filedocumented in this encounter Additional Health Concerns Infection Onset Date Last Indicated Resolved Time R/O Respiratory Virus Infection 08/26/2021 08/26/2021 10:26 PM EDT R/O Influenza 08/26/2021 08/26/2021 08/26/2021 10: 26 PM EDT COVID-19 - Suspected infection 08/26/2021 08/26/2021 08/26/2021 10:26 PM EDT documented as of this encounter Care Teams Bench Jeweler Relationship Specialty Start Date End Date Cynthia Rosas MD [address] [place] [address] PCP - General Internal Medicine 10/30/16 documented as of this encounter
--- OUTSIDE RECORDS SUMMARY | 2025-03-03 11:44 | XMS_ITS | Encounter Summary ---
Author Organization [facility] Address [address] [place] [address] Care Team Providers Care Waste Hand Name Role Phone Cynthia Rosas MD Primary Care Provider + Encounter Details Date Type Department Care Team (Late Contact Info) Description 08/06/2017 myChart Message [facility] Internal Medicine [address] [place] [phone] Cynthia Rosas MD [address] [place] [address] RE: Non-Urgent Medical Question Social History Tobacco [...] Description 03/08/2025 3:15 PM EST Procedure visit [facility] at [address] [phone] Azar Campos MD [address] [place] [address] 03/15/2025 8:00 AM EST Office Visit [facility] [address] [place] [address] Jason Tapia MD [address] [place] [address] 03/22/2025 3:00 PM EST Follow-Up [facility] Internal Medicine [address] [place] [address] Cynthia Rosas MD [address] [place] [address] 03/24/2025 8:20 AM EST Office Visit [facility] Podiatry [address] [place] [address] Reservations Clerk: Jessica Yip DPM [address] [place] [address] 05/18/2025 4:20 PM EST Follow-Up [facility] Endocrinology Clinic [address] [place] [address] Reservations Clerk: Kerwin Jacobs MD [address] [place] [address] 09/20/2025 4:00 PM EDT Office Visit [facility] Diabetes Clinic [address] [place] [address] Reservations Clerk: Lolita Rodriguez MD [address] [place] [address] 09/21/2025 3:30 PM EDT Office Visit [facility] Internal Medicine [address] [place] [address] Cynthia Rosas MD [address] [place] [address] 02/23/2026 2:00 PM EST Office Visit [facility] Dermatology [address] [facility] [address] [place] [phone] Erna Silva PA [address] [place] [address] documented as of this encounter Visit Diagnoses Not on filedocumented in this encounter Additional Health Concerns Infection Onset Date Last Indicated Resolved Time R/O Respiratory Virus Infection 08/26/2021 08/26/2021 10:26 PM EDT R/O Influenza 08/26/2021 08/26/2021 08/26/2021 10: 26 PM EDT COVID-19 - Suspected infection 08/26/2021 08/26/2021 08/26/2021 10:26 PM EDT documented as of this encounter Care Teams Waste Hand Relationship Specialty Start Date End Date Cynthia Rosas MD [address] [place] [address] PCP - General Internal Medicine 10/30/16 documented as of this encounter
--- OUTSIDE RECORDS SUMMARY | 2025-03-03 11:44 | XMS_ITS | Encounter Summary ---
Author Organization [facility] Address [address] [place] [address] Care Team Providers Care Shipping Checker Name Role Phone Cynthia Rosas MD Primary Care Provider + Encounter Details Date Type Department Care Team (Late st Contact Info) Description 02/11/2024 Orders Only [address], [address] [place] [address] Arik Johnson MD [address] [place] [address] Social History Tobacco Use Types Packs/Day Years Used Date Smoking Tobacco: Former Cigarettes 23.4 1 - 06/11/2020 Smokeless Tobacco: Never Comments:: Alcohol Use Standard Drinks/Week Comments Yes 0 (1 standard drink = 0.6 oz pur e alcohol) social [facility] Utilities Answer Date Recorded In the past 12 months has e [employer], gas, oil, or water [employer] threatened to shut off services in your home? No 12/02/2023 Hunger Vital Sign Answer Date Recorded Within the past 12 months, y ou worried that your food would run out before you got the money to buy more. Never true 12/02/19 24 Within the past 12 months, t he food you bought just didn't last and you didn't have money to get more. Never true 12/02/2023 Transportation Answer Date Recorded In the past 12 months, has l ack of reliable transportation kept you from medical appointments, meetings, work or from getting things needed for daily living? No 12/02/2023 Housing Answer Date Recorded Housing Risk Low 2 12/02/2023 Housing Risk Medium Not on file 12/02/2023 Housing Risk High Not on file 12/02/2023 What is your living situation today? LSSTEADY 12/02/2023 Comments No Sex and Gender Information Value [...] Description 03/08/2025 3:15 PM EST Procedure visit [facility] at [address] [phone] Azar Campos MD [address] [place] [address] 03/15/2025 8:00 AM EST Office Visit [facility] [address] [place] [address] Jason Tapia MD [address] [place] [address] 03/22/2025 3:00 PM EST Follow-Up [facility] Internal Medicine [address] [place] [phone] Cynthia Rosas MD [address] [place] [address] 03/24/2025 8:20 AM EST Office Visit [facility] Building Podiatry [address] [place] [address] Operating Room Assistant: Jessica Yip DPM [address] [place] [address] 05/18/2025 4:20 PM EST Follow-Up [facility] Endocrinology Clinic [address] [place] [address] Operating Room Assistant: Kerwin Jacobs MD [address] [place] [address] 09/20/2025 4:00 PM EDT Office Visit [facility] Diabetes Clinic [address] [place] [address] Operating Room Assistant: Lolita Rodriguez MD [address] [place] [address] 09/21/2025 3:30 PM EDT Office Visit [facility] Internal Medicine [address] [place] [address] Cynthia Rosas MD [address] [place] [address] 02/23/2026 2:00 PM EST Office Visit [facility] Dermatology [address] [facility] [address] [place] [address] Erna Silva PA [address] [place] [address] documented as of this encounter Visit Diagnoses Not on filedocumented in this encounter Care Teams Shipping Checker Relationship Specialty Start Date End Date Cynthia Rosas MD [address] [place] [address] PCP - General Internal Medicine 10/30/16 documented as of this encounter
--- OUTSIDE RECORDS SUMMARY | 2025-03-03 11:44 | XMS_ITS | Encounter Summary ---
Author Organization [facility] Address [address] [place] [address] Care Team Providers Care Automated Weaver Name Role Phone Cynthia Rosas MD Primary Care Provider + Encounter Details Date Type Department Care Team (Late Contact Info) Description 08/18/2017 myChart Message [facility] [address] [place] [address] Doctor Assistant: Winifred Richardson, Letty Mora MD [address] [place] [address] Non-Urgent Medical Question Social History Tobacco Use [...] Description 03/08/2025 3:15 PM EST Procedure visit [facility] at [address] [phone] Azar Campos MD [address] [place] [phone] 03/15/2025 8:00 AM EST Office Visit [facility] [address] [place] [id number] Jason Tapia MD [address] [place] [phone] 03/22/2025 3:00 PM EST Follow-Up [facility] Internal Medicine [address] [place] [phone] Cynthia Rosas MD [address] [place] [phone] 03/24/2025 8:20 AM EST Office Visit [facility] Podiatry [address] [place] [address] Doctor Assistant: Jessica Yip DPM [address] [place] [address] 05/18/2025 4:20 PM EST Follow-Up [facility] [address] [place] [phone] Doctor Assistant: Kerwin Jacobs MD [address] [place] [address] 09/20/2025 4:00 PM EDT Office Visit [facility] [address] [place] [phone] Doctor Assistant: Lolita Rodriguez MD [address] [place] [phone] 09/21/2025 3:30 PM EDT Office Visit [facility] Internal Medicine [address] [place] [phone] Cynthia Rosas MD [address] [place] [address] 02/23/2026 2:00 PM EST Office Visit [facility] Dermatology [address] [place] [address] Erna Silva PA [address] [place] [address] documented as of this encounter Visit Diagnoses Not on filedocumented in this encounter Additional Health Concerns Infection Onset Date Last Indicated Resolved Time R/O Respiratory Virus Infection 08/26/2021 2 08/26/2021 10:26 PM EDT R/O Influenza 08/26/2021 08/26/2021 08/26/2021 10: 26 PM EDT COVID-19 - Suspected infection 08/26/2021 08/26/2021 08/26/2021 10:26 PM EDT documented as of this encounter Care Teams Automated Weaver Relationship Specialty Start Date End Date Cynthia Rosas MD [address] [place] [address] PCP - General Internal Medicine 10/30/16 documented as of this encounter
--- OUTSIDE RECORDS SUMMARY | 2025-03-03 11:44 | XMS_ITS | Continuity of Care Document ---
Author Organization [facility] Address [address] [place] [address] Care Team Providers Care Pharmacist Manager Name Role Phone Cynthia Fatima Lester Primary Care Provider [phone] Encounters Date Type Department Care Team Description 02/23/2025 Results Follow-Up [facility] Orthopedic Surgery [address] [place] [phone] Devin Panda MD MRI LUMBAR SPINE WO CONTRAST 02/22/2025 Orders Only [facility] [address] [place] [address] Devin Panda MD 02/20/2025 3:00 PM EST Office Visit [facility] Orthopedic Surgery-Entrance C [address] [place] [address] Gómez Demarco MD SI (sacroiliac) joint dysfunction (Primary Dx); Spondylolisthesis of lumbar region; History of lumbar fusion; Radiculitis 02/03/2025 Orders Only [facility] Orthopedic Surgery [address] [facility] [address] [place] [address] Devin Panda MD 12/05/2024 8:15 AM EDT Radiology [facility] Xray [address] [address] History of lumbar fusion 12/05/2024 8:30 AM EDT Consult (Initial) [facility] Orthopedic Surgery [address] [address] Devin Panda MD Spondylolisthesis of lumbar region (Primary Dx); Low back pain of over 3 months duration; Radiculitis 11/30/2024 Orders Only [facility] Orthopedic Surgery [address] [address] Devin Panda MD 09/16/2024 1:00 PM EDT Office Visit [facility] Orthopedic Surgery-Entrance C [address] [place] [address] Gómez Demarco MD Sacroiliac joint dysfunction of right side (Primary Dx); History of lumbar fusion 05/04/2023 Telephone [facility] Orthopedic Surgery [address] [address] Dana Phillip MD ER F/U 03/02/2023 12:40 PM EST Office Visit [facility] Orthopedic Surgery-Entrance C [address] [place] [address] Gómez Demarco MD Piriformis syndrome of left side (Primary Dx); Low back pain of over 3 months duration 10/06/2022 Refill [facility] Orthopedic Surgery [address] [address] Devin Panda MD E-prescribing Refill Request 08/18/2022 3:15 PM EDT Radiology [facility] Xray [address] [place] [address] Left shoulder pain, unspecified chronicity 08/18/2022 3:30 PM EDT Consult (Initial) [facility] Orthopedic Surgery-Entrance C [address] [place] [address] Kerwin Ureña PA Nontraumatic complete tear of left rotator cuff (Primary Dx) 08/15/2022 Orders Only [facility] Orthopedic Surgery-Entrance C [address] [place] [address] Nicola Corrigan MD 04/18/2022 3:20 PM EST Consult (Initial) [facility] Orthopedic Surgery-Entrance C [address] [place] [address] Gómez Demarco MD SI (sacroiliac) joint dysfunction (Primary Dx); Piriformis syndrome of left side; S/P lumbar fusion 03/24/2022 4:05 PM EST Radiology [facility] Xray 123 [facility] [address] [place] [address] Low back pain, unspecified back pain laterality, unspecified chronicity, unspecified whether sciatica present 03/24/2022 4:20 PM EST Office Visit [facility] Orthopedic Surgery [address] [facility] [address] [place] [phone] Devin Panda MD Low back pain of over 3 months duration (Primary Dx); Radiculitis; S/P lumbar fusion 03/21/2022 Orders Only [facility] Orthopedic Surgery [address] [facility] [address] [place] [phone] Devin Panda MD 11/26/2021 4:45 PM EDT Radiology [facility] Xray 123 [facility] [address] [place] [address] Cervical myelopathy 11/26/2021 4:30 PM EDT Office Visit [facility] Orthopedic Surgery [address] [address] Devin Panda MD Neck pain (Primary Dx); Cervical cord myelomalacia; Foraminal stenosis of cervical region 11/25/2021 Orders Only [facility] Orthopedic Surgery [address] [facility] [address] [place] [phone] Devin Panda MD 11/21/2021 Telephone [facility] Orthopedic Surgery [address] [address] Devin Panda MD Appointment ; Imaging Study 11/19/2021 4:15 PM EDT Radiology [facility] Xray 123 [facility] [address] [place] [address] Radiculitis; Neck pain 11/19/2021 4:00 PM EDT Consult (Initial) [facility] Orthopedic Surgery [address] [facility] [address] [place] [address] Devin Panda MD Cervical myelopathy (Primary Dx); Cervical cord myelomalacia; Radiculitis; Hand numbness; Neck pain 06/25/2021 Letter/Form RADIOLOGY UNSPECIFIED Provider, Unknown 06/25/2021 3:15 PM EDT Radiology [facility] Xray 123 [facility] [address] [place] [address] Radiculitis 06/25/2021 3:30 PM EDT Office Visit [facility] Orthopedic Surgery [address] [facility] [address] [place] [address] Devin Panda MD Low back pain of over 3 months duration (Primary Dx); Radiculitis 06/24/2021 5:00 PM EDT Minor Procedure/Test [facility] [address] [place] [address] Jaylin Hoffmann, PT S/P spinal fusion (Primary Dx) 06/17/2021 4:45 PM EST Minor Procedure/Test [facility] [address] [place] [address] Jaylin Hoffmann, PT S/P spinal fusion (Primary Dx) 06/10/2021 4:45 PM EST Minor Procedure/Test [facility] [address] [place] [address] Jaylin Hoffmann, PT S/P spinal fusion (Primary Dx) 05/27/2021 4:45 PM EST Minor Procedure/Test [facility] [address] [place] [address] Jaylin Hoffmann, PT S/P spinal fusion (Primary Dx) 05/22/2021 Orders Only [facility] [address] [place] [address] Jaylin Hoffmann, PT 05/18/2021 10:00 AM EST Consult (Initial) [facility] [address] [place] [address] Jaylin Hoffmann, PT S/P spinal fusionPT (Primary Dx) 05/15/2021 Orders Only [facility] Orthopedic Surgery [address] [address] Devin Panda MD 05/14/2021 12:45 PM EST Radiology [facility] Xray 123 [facility] [address] [place] [address] Low back pain of over 3 months duration; Radiculitis 05/14/2021 1:10 PM EST Office Visit [facility] Orthopedic Surgery [address] [address] Devin Panda MD Radiculitis (Primary Dx) 04/02/2021 12:45 PM EST Radiology [facility] Xray 123 [facility] [address] [place] [address] Status post lumbar spine operative procedure for decompression of spinal cord 04/02/2021 1:00 PM EST Office Visit [facility] Orthopedic Surgery [address] [address] Devin Panda MD S/P lumbar fusion (Primary Dx); Spondylolisthesis of lumbar region; Low back pain of over 3 months duration; Radiculitis 04/01/2021 Orders Only [facility] Orthopedic Surgery [address] [facility] [address] [place] [phone] Devin Panda MD 03/29/2021 Refill [facility] Orthopedic Surgery [address] [address] Devin Panda MD Refill Request 03/15/2021 Minor Procedure/Test NON [facility] [address] [place] [address] Devin Panda MD 03/15/2021 Professional Billing [facility] Orthopedic Surgery [address] [place] [address] Devin Panda MD Spinal stenosis of lumbar region with neurogenic claudication; Spondylolisthesis of lumbar region 03/15/2021 Hospital/Inpatient NON [facility] [address] [place] [address] Devin Panda MD 03/14/2021 Telephone [facility] Orthopedic Surgery [address] [facility] [address] [place] [address] Devin Panda MD Patient Questions 03/13/2021 Telephone [facility] Orthopedic Surgery [address] [facility] [address] [place] [address] Devin Panda MD Surgery ; Referrals 03/12/2021 Orders Only NON [facility] [address] [place] [address] Devin Panda MD 02/20/2021 Telephone [facility] Orthopedic Surgery [address] [facility] [address] [place] [address] Devin Panda MD Patient Questions ; Letter/form Request 02/18/2021 Telephone [facility] Orthopedic Surgery [address] [facility] [address] [place] [address] Devin Panda MD Patient Questions 02/15/2021 Telephone [facility] Orthopedic Surgery [address] [facility] [address] [place] [phone] Devin Panda MD Appointment ; Patient Questions 02/14/2021 Orders Only [facility] Cardiology [address] [facility] [address] [place] [address] Ezekiel Gant DO 02/14/2021 Orders Only [facility] Pre-Admission Testing [address] [place] [address] Valentina Acevedo NP 02/14/2021 Telephone [facility] Pre-Admission Testing [address] [place] [address] Valentina Acevedo NP Pre Op Exam 02/14/2021 3:20 PM EDT Office Visit [facility] Pre-Admission Testing [address] [place] [address] [facility] [address] [place] [address] Valentina Acevedo NP Pre-op exam (Primary Dx); Lumbosacral radiculopathy due to degenerative joint disease of spine; Essential hypertension; Gastroesophageal reflux disease without esophagitis; 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 Bone Density [address] [place] [address] DDD (degenerative disc disease), lumbar 11/27/2020 Telephone [facility] Orthopedic Surgery [address] [place] [phone] Devin Panda MD Labs/orders 11/26/2020 Orders Only [facility] Orthopedic Surgery [address] [address] Devin Panda MD 11/26/2020 12:30 PM EDT Radiology [facility] Xray [address] [address] DDD (degenerative disc disease), lumbar; Stenosis of lateral recess of lumbar spine; Facet arthritis of lumbar region; Foraminal stenosis of lumbar region 11/26/2020 11:40 AM EDT Office Visit [facility] Orthopedic Surgery [address] [address] Devin Panda MD DDD (degenerative disc disease), lumbar (Primary Dx); Stenosis of lateral recess of lumbar spine; Facet arthritis of lumbar region; Foraminal stenosis of lumbar region; Radiculitis; Tobacco abuse, in remission 11/07/2020 5:00 PM EDT Radiology [facility]. Magnetic Resonance Imaging [address] [place] [address] Chronic low back pain, unspecified back pain laterality, unspecified whether sciatica present 10/12/2020 Orders Only [facility] Orthopedic Surgery [address] [facility] [address] [place] [address] Devin Panda MD 09/28/2020 Travel 09/28/2020 3:40 PM EDT Office Visit [facility] Orthopedic Surgery-Entrance C [address] [place] [address] Gómez Demarco MD Lumbar radiculopathy (Primary Dx); Neuroforaminal stenosis of lumbar spine; DDD (degenerative disc disease), lumbar 08/17/2020 Letter/Form RADIOLOGY UNSPECIFIED Provider, Unknown 08/17/2020 Travel 08/17/2020 3:40 PM EDT Minor Procedure/Test [facility] Orthopedic Surgery-Entrance C [address] [place] [address] Gómez Demarco MD Lumbar radiculopathy (Primary Dx); DDD (degenerative disc disease), lumbar 06/29/2020 Travel 06/29/2020 9:05 AM EDT Minor Procedure/Test [facility] Orthopedic Surgery-Entrance C [address] [place] [address] Gómez Demarco MD Lumbar radiculopathy (Primary Dx) 06/11/2020 Telephone [facility] Orthopedic Surgery-Entrance C [address] [place] [address] Gómez Demarco MD Prior Authorization Request 06/11/2020 Travel 06/11/2020 12:45 PM EST Consult (Initial) [facility] Orthopedic Surgery-Entrance C [address] [place] [address] Gómez Demarco MD Lumbar radiculopathy (Primary Dx); Neuroforaminal stenosis of lumbar spine; DDD (degenerative disc disease), lumbar; Facet arthritis of lumbar region 05/21/2020 Travel 05/21/2020 3:50 PM EST Consult (Initial) [facility] Orthopedic Surgery [address] [facility] [address] [place] [address] Devin Panda MD Stenosis of lateral recess of lumbar spine (Primary Dx); Foraminal stenosis of lumbar region; DDD (degenerative disc disease), lumbar; Radiculitis; Foraminal stenosis of cervical region 04/12/2020 Travel Allergies Active Allergy Reactions Criticality Noted Date Comments Bactrim Ds Maculopapular Rash Medium 05/21/2020 Bupropion 12/12/2019 Other reaction(s): Agitation Medications traMADol HCl (ULTRAM) 50 MG tablet Take 50 mg by mouth. 04/18/19 21 Active Acetaminophen (TYLENOL) 500 MG tablet Take 1,000 mg by mouth Active hydroCHLOROthiazid e (HYDRODIURIL) 25 MG tablet Take 25 mg by mouth 01/25/20 20 Active Insulin Glargine (LANTUS) 100 UNIT/ML injection Inject under the skin Active Losartan Potassium (COZAAR) 25 MG tablet Take 25 mg by mouth 01/25/20 20 Active Insulin Lispro (HumaLOG) 100 UNIT/ML Solution Cartridge Inject under the skin Active Calcium 500-125 MG-UNIT per tablet Take 1 tablet by mouth 1 (one) time each day Active Misc Natural Products (Tumersaid) Tab Take by mouth Active Zinc 30 MG Cap Take by mouth A ctive Ascorbic Acid (Vitamin C) 500 MG Cap Take by mouth Active Multiple Vitamins-Minerals (Eye Vitamins) Cap Take by mouth Active Magnesium 100 MG Tab Take by mouth Active Glucagon, rDNA, 1 MG injection Take by mouth - 03/05/20 21 Active Insulin Aspart (NovoLOG FlexPen) 100 UNIT/ML Solution Pen-injector Novolog Flexpen U-100 Insulin aspart 100 unit/mL (3 mL) subcutaneous 12/28/19 21 Active Ondansetron (ZOFRAN-ODT) 4 MG disintegrating tablet 03/17/20 21 Active PreviDent 5000 Sensitive 1.1-5 % Gel 02/21/20 21 Active methylPREDNISolone (MEDROL DOSPAK) 4 MG tablet Take 1 kit as directed on package 1 kit 04/02/20 21 Active Gabapentin (NEURONTIN) 300 MG capsule Take 1 capsule (300 mg total) by mouth 3 times a day. 270 capsule 3 10/07/19 23 Active DULoxetine (CYMBALTA) [address] capsule Take 20 mg by mouth. 02/03/20 24 Active Zepbound 2.5 MG/0.5ML auto-injector Inject 2.5 mg under the skin 07/28/19 Active Atorvastatin Calcium (LIPITOR) 40 MG tablet 07/07/19 25 Active Active Problems Problem Noted Date Diagnosed Date S/P spinal fusionPT 05/18/2021 Lumbosacral radiculopathy du e to degenerative joint disease of spine 06/07/2020 Proliferative diabetic retin opathy of both eyes with macular edema associated with type 1 diabetes mellitus 01/24/2020 Essential hypertension 07/21/2018 Cervical spinal stenosis 02/24/2018 Colloid nodular goiter 08/20/2017 Gastroesophageal reflux disease without esophagi tis 07/09/2017 Overview (02/14/2021): Added automatically from request for surgery [id number] Hypoglycemia due to type 1 diabetes mellitus 12/2017 NPDR (nonproliferative diabetic retinopathy) Tobacco user 09/26/2008 Overview (02/14/2021): 1/3 PACK/DAY X25 YEARS Immunizations Immunization Administration Dates Next Due COVID-19, mRNA (Pfizer Pre F all 2022) Monovalent, 30 mcg/0.3 ml 01/02/2021,12/12/2020 Influenza (SEASONAL) - 01/31/2020 Influenza,injectable,quad,preservative 8 PPV23 (Pneumovax) 06/07/2020 Td (adult), 5 Lf tetanus tox oid, preservative free, adsorbed 11/17/2017 Tdap 09/19/2014 Zoster (Shingrix) 11/29/2020,06/07/2020 influenza,seasonal,trivalent ,PF (Fluzone, Fluarix, Flulaval) 01/29/2021 Family History Medical History Relation Name Comments Cancer (?Type) Father Arthritis/Joint disorder Mother Heart Disorder Neg Hx Relation Name Status Comments Father Mother Social History Smoking Status as of 03/03/2025 Tobacco Use Types Packs/Day Years Used Date Smoking Tobacco: Never Assessed Intimate Partner Violence Answer Date R ecorded Fear of Current or Ex-Partner Not on file Emotionally Abused Not on file 12/12/2022 Physically Abused Not on file 12/12/2022 Sexually Abused Not on file 12/12/2022 Feel Safe at Home Not on file 12/12/2022 Sex and Gender Information Value Date Recorded Sex Assigned at Not on file Legal Sex Female 8:10 AM EST Gender Identity Not on file Sexual Orientation Not on file Last Filed Vital Signs Vital Sign Reading Time Taken Comments Blood Pressure 107/67 02/14/2021 3:07 PM EDT Pulse 70 02/14/2021 3:07 PM EDT Temperature 36.8 C (98.3 F) 02/14/2021 3:07 PM EDT Respiratory Rate 14 02/14/2021 3:07 PM EDT Oxygen Saturation 98% 08/17/2020 3:45 PM EDT Inhaled Oxygen Concentration - - Weight 66.7 kg (147 lb) 02/14/2021 3:07 PM EDT Height 154.9 cm (5' 1 ) 02/14/2021 3:07 PM EDT Body Mass Index 27.78 02/14/2021 3:07 PM EDT Plan of Treatment Upcoming Encounters Date Type Department Care Team (Late st Contact Info) Description 03/23/2025 3:40 PM EST Minor Procedure/Test [facility] Orthopedic Surgery-Entrance C [address] [place] [address] Gómez Demarco MD [address] [place] [address] AUTH# [id number] Procedures * Due to [place] state law, this organization might not be sharing negative HIV tests. Procedure Name Priority Date/Time Associated Diagnosis Comments MRI LUMBAR SPINE WO CONTRAST 02/22/2025 9:27 AM EST XRAY SPINE, LUMBOSACRAL; 2 OR 3 VIEWS Routine 12/05/2024 8:30 AM EDT History of lumbar fusion XRAY SHOULDER COMPLETE MIN 2 VWS - LEFT (DX: SHOULDER PAIN *NO INJURY*) Routine 08/18/2022 3:21 PM EDT Left shoulder pain, unspecified chronicity XRAY SPINE, LUMBOSACRAL 2 OR 3 VIEWS (DX: CHRONIC LOW BACK PAIN > 28 DAYS *NO INJURY*) Routine 03/24/2022 4:14 PM EST Low back pain, unspecified back pain laterality, unspecified chronicity, unspecified whether sciatica present XRAY SPINE, CERVICAL; 3 VIEWS OR LESS Routine 11/26/2021 4:08 PM EDT Cervical myelopathy XRAY SPINE, CERVICAL; 4 OR 5 VIEWS Routine 11/19/2021 4:18 PM EDT Radiculitis Neck pain XRAY SPINE, LUMBOSACRAL; 2 OR 3 VIEWS Routine 06/25/2021 3:14 PM EDT Radiculitis XRAY SPINE, LUMBOSACRAL; 2 OR 3 VIEWS Routine 05/14/2021 12:45 PM EST Low back pain of over 3 months duration Radiculitis XRAY SPINE, LUMBOSACRAL; 2 OR 3 VIEWS Routine 04/02/2021 12:43 PM EST Status post lumbar spine operative procedure for decompression of spinal cord LUMBAR SPINE 3 VIEW MAX Routine 03/18/2021 8:08 AM EST GLUCOSE Routine 03/17/2021 11:13 AM EST GLUCOSE Routine 03/17/2021 7:16 AM EST GLUCOSE Routine 03/16/2021 8:12 PM EST GLUCOSE Routine 03/16/2021 5:40 PM EST GLUCOSE Routine 03/16/2021 4:13 PM EST GLUCOSE Routine 03/16/2021 11:24 AM EST GLUCOSE Routine 03/16/2021 7:58 AM EST BASIC METABOLIC PANEL Routine 03/16/2021 7:20 AM EST CBC WITH 5 PART DIFF Routine 03/16/2021 7:20 AM EST GLUCOSE Routine 03/15/2021 9:24 PM EST GLUCOSE Routine 03/15/2021 6:19 PM EST GLUCOSE Routine 03/15/2021 1:21 PM EST OR IMAGING C-ARM Routine 03/15/2021 11:1 3 AM EST GLUCOSE Routine 03/15/2021 6:12 AM EST UNSPECIFIED MAJOR PROCEDURE 03/15/2021 SARS-COV-2, EZEQUIEL Routine 03/12/2021 10:29 AM EST BLOOD TYPE AND ANTIBODY SCREEN Routine 03/12/2021 9:15 AM EST EKG-TO BE READ & BILLED BY ADULT [...] Routine 02/14/2021 3:49 PM EDT Pre-op exam DXA BONE DENSITY STUDY AXIAL (LSSPINE, HIP) (DX: OSTEOPENIA) Routine 12/07/2020 3:46 PM EDT DDD (degenerative disc disease), lumbar HEMOGLOBIN A1C Routine 11/26/2020 12:31 PM EDT DDD (degenerative disc disease), lumbar Stenosis of lateral recess of lumbar spine Facet arthritis of lumbar region Foraminal stenosis of lumbar region Radiculitis VENIPUNCTURE Routine 11/26/2020 12:31 PM EDT Tobacco abuse, in remission XRAY SPINE, LUMBOSACRAL; 2 OR 3 VIEWS Routine 11/26/2020 12:20 PM EDT DDD (degenerative disc disease), lumbar Stenosis of lateral recess of lumbar spine Facet arthritis of lumbar region Foraminal stenosis of lumbar region MRI LUMBAR SPINE W/O CONTRST(DX: BACK PAIN> 6 WKS, NO PRIOR LUMBAR SURGERY) (WITHIN 2 WKS) Routine 11/07/2020 5:25 PM EDT Chronic low back pain, unspecified back pain laterality, unspecified whether sciatica present INJECTION(S) OF DIAGNOSTIC OR THERAPEUTIC SUSTANCES(S), LUMBAR OR SACRAL W/IMAGE Routine 08/17/2020 4:01 PM EDT Lumbar radiculopathy DDD (degenerative disc disease), lumbar INJECTION(S) OF DIAGNOSTIC OR THERAPEUTIC SUSTANCES(S), LUMBAR OR SACRAL W/IMAGE Routine 06/29/2020 9:43 AM EDT Lumbar radiculopathy Results * Due to [place] state law, this organization might not be sharing negative HIV tests. * (ABNORMAL) MRI LUMBAR SPINE WO CONTRAST (02/22/2025 9:27 AM EST) Incidental Findings Yes(A) [facility] Anatomical Region Laterality Modality Other 02/22/2025 9:27 AM EST Narrative 02/22/2025 9:27 AM EST EXAMINATION: MRI of lumbar spine without contrast TECHNIQUE: Multiplanar and multisequence MR imaging of lumbar spine performed without intravenous contrast administration. Sequences obtained include, Sagittal plane: T1, T2 and STIR Axial plane: T1 and T2 at selected levels INDICATION: 59-year-old female status post lumbar fusion at the L4-S1 level and laminectomy 4 years ago who complains of 3-month history of progressive low back pain radiating into the upper buttock region on both sides. Patient reports difficulty walking longer than 10 minutes. Symptoms also increase with spinal extension. COMPARISON: Lumbar MR examination from 11/03/2021 FINDINGS: The examination of the lumbar spine is somewhat limited due to susceptibility artifact from fusion hardware. The patient is status post a lower lumbar fusion and laminectomy extending from the L4 level to the S1 level with placement of pedicle screws and rods. The hardware appears to be in good position without obvious loosening. The central spinal canal is patent at the level of the fusion and laminectomies. There is reactive marrow signal change in the endplates surrounding the L3-4 disc likely due to degeneration of this disc. There is a 7 mm grade 1 anterolisthesis of L3 on L4 without an associated spondylolysis. This spondylolisthesis is new since the exam from 11/03/2021. The conus appears normal in size, contour and signal intensity. There is degeneration of the L2-3 and L3-4 intervertebral disc which demonstrate decreased signal on the T2 weighted images. There appears to be bony fusion at the L5-S1 level. L1-2: No significant disc herniation or foraminal narrowing. No change since the prior exam. L2-3: No significant disc herniation or foraminal narrowing. There is mild degenerative change in the facet joints. No change since the prior exam. L3-4: There is severe narrowing of the central spinal canal due to the 7 mm grade 1 anterolisthesis of L3 on L4 and a moderate central and lateral bulging disc with a superimposed central extruded disc herniation which extends above the L3-4 disc space with the anterior posterior edge canal measuring 3.8 mm. This finding is new since the prior exam from 11/03/2021 where the spinal canal measured 10 mm. There is also moderately severe compression of the right neural foramen and moderate compression of the left neural foramen due to the bulging disc and disc herniation. L4-5: Mild central bulging disc causing mild compression of the thecal sac and the inferior portion of the neuroforamen. The central canal is widely patent following the fusion and laminectomy. No change since the prior exam from 10/30/2021. L5-S1: Mild to moderate central spondylotic ridge consisting of a protruding disc with adjacent spurs causing mild compression of the ventral midportion left side of the thecal sac. The central canal appears widely patent following the performance of fusion and laminectomy. These findings are stable since the previous exam. There is coiling of nerve roots above the L3-4 level likely due to the severe spinal stenosis. IMPRESSION: 1. The examination of the lumbar spine is somewhat limited due to susceptibility artifact from fusion hardware. 2. The patient is status post a lower lumbar fusion extending from the L4 level to the S1 level with placement of pedicle screws and rods. The hardware appears to be in good position without loosening. There is a previous laminectomy at these levels with wide patency of the central spinal canal. 3. Compared with the previous exam from 11/03/2021, there has developed severe spinal stenosis at the L3-4 level due to a 7 mm grade 1 anterolisthesis, a moderate central and lateral bulging disc and a moderate superimposed central extruded disc herniation and degenerative change in the facet joints with the anterior posterior edge canal measuring 3.8 mm. Previously, the canal measured 10 mm. There is also moderate compression of the left and moderately severe compression of the right neural foramen due to the bulging disc and disc herniation. There is coiling of nerve roots above this level due to the spinal stenosis. ([place]) 4. There is a mild central bulging disc at the L4-5 level causing mild compression of the thecal sac and the inferior portion of the neuroforamen. The central spinal canal appears widely patent following performance of the fusion and laminectomy. A(n) [place] actionable finding has been communicated to the ordering or responsible provider via the Equivalent [employer] system on 02/22/2025 9:23 AM. Receipt of this communication by the responsible provider will be documented in Equivalent DATA upon receiving acknowledgement if applicable, Message ID [id number]. If this radiology report contains a blank impression section, it is an incomplete radiology report. Please contact the interpreting radiologist or applicable radiology division as soon as possible to obtain the completed interpretation. Workstation ID: [id number] 5' .05 140 Procedure Note [facility], [facility] Provider - 02/22/2025 EXAMINATION: MRI of lumbar spine without contrast TECHNIQUE: Multiplanar and multisequence MR imaging of lumbar spine performed withoutintravenous contrast administration. Sequences obtained include, Sagittal plane: T1, T2 and STIR Axial plane: T1 and T2 at selected levels INDICATION: 59-year-old female status post lumbar fusion at the L4-P3sequs and laminectomy 4 years ago who complains of 3-month history ofprogressive low back pain radiating into the upper buttock region on bothsides. Patient reports difficulty walking longer than 10 minutes. Symptoms also increase with spinalextension. COMPARISON: Lumbar MR examination from 11/03/2021 FINDINGS: The examination of the lumbar spine is somewhat limited due tosusceptibility artifact from fusion hardware. The patient is status post a lower lumbar fusion and laminectomy extendingfrom the L4 level to the S1 level with placement of pedicle screws androds. The hardware appears to be in good position without obviousloosening. The central spinal canal is patent at the level of the fusion and laminectomies. There is reactive marrow signal change in the endplates surrounding theL3-4 disc likely due to degeneration of this disc. There is a 7 mm grade 1 anterolisthesis of L3 on L4 without an associatedspondylolysis. This spondylolisthesis is new since the exam from11/03/2021. The conus appears normal in size, contour and signal intensity. There is degeneration of the L2-3 and L3-4 intervertebral disc whichdemonstrate decreased signal on the T2 weighted images. There appears meño bony fusion at the L5-S1 level. L1-2: No significant disc herniation or foraminal narrowing. No changesince the prior exam. L2-3: No significant disc herniation or foraminal narrowing. There is milddegenerative change in the facet joints. No change since the prior exam. L3-4: There is severe narrowing of the central spinal canal due to the 7mm grade 1 anterolisthesis of L3 on L4 and a moderate central and lateralbulging disc with a superimposed central extruded disc herniation whichextends above the L3-4 disc space with the anterior posterior edge canal measuring 3.8 mm. This finding isnew since the prior exam from 11/03/2021 where the spinal canal measured 10mm. There is also moderately severe compression of the right neuralforamen and moderate compression of the left neural foramen due to the bulging disc and disc herniation. L4-5: Mild central bulging disc causing mild compression of the thecal sacand the inferior portion of the neuroforamen. The central canal is widelypatent following the fusion and laminectomy. No change since the priorexam from 10/30/2021. L5-S1: Mild to moderate central spondylotic ridge consisting of aprotruding disc with adjacent spurs causing mild compression of theventral midportion left side of the thecal sac. The central canal appearswidely patent following the performance of fusion and laminectomy. These findings are stable since the previousexam. There is coiling of nerve roots above the L3-4 level likely due to thesevere spinal stenosis. IMPRESSION: 1. The examination of the lumbar spine is somewhat limited due tosusceptibility artifact from fusion hardware. 2. The patient is status post a lower lumbar fusion extending from the A4xbpso to the S1 level with placement of pedicle screws and rods. Thehardware appears to be in good position without loosening. There is aprevious laminectomy at these levels with wide patency of the central spinal canal. 3. Compared with the previous exam from 11/03/2021, there has developedsevere spinal stenosis at the L3-4 level due to a 7 mm grade 1anterolisthesis, a moderate central and lateral bulging disc and amoderate superimposed central extruded disc herniation and degenerative change in the facet joints with the anteriorposterior edge canal measuring 3.8 mm. Previously, the canal measured 10mm. There is also moderate compression of the left and moderately severecompression of the right neural foramen due to the bulging disc and disc herniation. There is coiling ofnerve roots above this level due to the spinal stenosis. ([place]) 4. There is a mild central bulging disc at the L4-5 level causing mildcompression of the thecal sac and the inferior portion of theneuroforamen. The central spinal canal appears widely patent followingperformance of the fusion and laminectomy. A(n) [place] actionable finding has been communicated to the ordering orresponsible provider via the Equivalent [employer] system on02/22/2025 9:23 AM. Receipt of this communication by the responsibleprovider will be documented in Equivalent DATA upon receiving acknowledgement ifapplicable, Message ID [id number]. If this radiology report contains a blank impression section, it is anincomplete radiology report. Please contact the interpreting radiologistor applicable radiology division as soon as possible to obtain thecompleted interpretation. Workstation ID: [id number] 5' .05 140 Devin Panda MD IMAGING-[facility] Final Result * XRAY SPINE, LUMBOSACRAL; 2 OR 3 VIEWS (12/05/2024 8:30 AM EDT) Only the most recent of5 resultswithin the time period is included. Anatomical Region Laterality Modality Spine Computed Radiogr aphy Narrative 12/06/2024 8:04 AM EDT Patient History: CONTRAST: 2 views lumbar spine Comparison: CR/MD - XRAY SPINE LUMBOSACRAL 2 OR 3 VIEWS (DX: BACK PAIN *NO INJURY* - 03/24/22 16:08 EST Findings: There is grade 1 anterolisthesis of L3 upon L4 with moderate disc degeneration. Postsurgical changes of posterior fusion from L4-S1 with intact surgical hardware and bilateral laminectomies of L4 and L5. Vertebral heights are maintained. No destructive appearing osseous lesions. IMPRESSION: 1. Grade 1 anterolisthesis of L3 upon L4 with moderate disc degeneration. 2. Postsurgical changes of posterior fusion from L4-S1 with intact hardware and bilateral L4-L5 laminectomies. Procedure Note Jam Hancock MD - 12/06/2024 Patient History: CONTRAST: 2 views lumbar spine Comparison: CR/MD - XRAY SPINE LUMBOSACRAL 2 OR 3 VIEWS (DX: BACK PAIN*NO INJURY* - 03/24/22 16:08 EST Findings: There is grade 1 anterolisthesis of L3 upon L4 with moderate discdegeneration. Postsurgical changes of posterior fusion from L4-S1 with intact surgicalhardware and bilateral laminectomies of L4 and L5. Vertebral heights are maintained. No destructive appearing osseouslesions. IMPRESSION: 1. Grade 1 anterolisthesis of L3 upon L4 with moderate discdegeneration. 2. Postsurgical changes of posterior fusion from L4-S1 with intacthardware and bilateral L4-L5 laminectomies. Devin Panda MD IMG XRAY NO CONTRAST ORDERABLES Final Result * XRAY SHOULDER COMPLETE MIN 2 VWS - LEFT (DX: SHOULDER PAIN *NO INJURY* M25.512/ 719.41) FC (08/18/2022 3:21 PM EDT) Anatomical Region Laterality Modality UPPER EXTREMITY Radiographic Devika ging 08/18/2022 3:57 PM EDT Narrative 08/18/2022 3:57 PM EDT CONTRAST: Three-view left shoulder x-ray COMPARISON: None FINDINGS: No acute fracture or malalignment. Mild AC joint narrowing. No bone lesions or rotator cuff calcifications. IMPRESSION: 1. Mild AC joint osteoarthritis. Procedure Note Jason Mejia MD - 08/18/2022 CONTRAST: Three-view left shoulder x-ray COMPARISON: None FINDINGS: No acute fracture or malalignment. Mild AC joint narrowing. No bonelesions or rotator cuff calcifications. IMPRESSION: 1. Mild AC joint osteoarthritis. us Nicola Corrigan MD IMG XRAY NO CONTRAST ORDERABLES Final Result * XRAY SPINE, LUMBOSACRAL 2 OR 3 VIEWS (DX: CHRONIC LOW BACK PAIN > 28 DAYS *NO INJURY* M54.5 / 724.2)FC (03/24/2022 4:14 PM EST) Anatomical Region Laterality Modality Spine Radiographic Devika ging 03/25/2022 12:0 5 PM EST Narrative 03/25/2022 12:05 PM EST CONTRAST: EXAM: LUMBAR SPINE SERIES: COMPARISON: None TECHNIQUE: AP, lateral standing views. FINDINGS: Vertebral body heights and alignment are normal. Previous L4 and L5 laminectomies at L4-5 and L5-S1 pedicle screw fusion noted, with no hardware abnormality appreciated. There is narrowing of the L5-S1 disc space. The other disc spaces are well-maintained and unremarkable. No acute abnormality is identified. IMPRESSION: Previous fusion surgery and laminectomies. No complication or acute abnormality identified. Procedure Note Mahin Sykes MD - 03/25/2022 CONTRAST: EXAM: LUMBAR SPINE SERIES: COMPARISON: None TECHNIQUE: AP, lateral standing views. FINDINGS: Vertebral body heights and alignment are normal. Previous L4 and L5 laminectomies at L4-5 and L5-S1 pedicle screw fusionnoted, with no hardware abnormality appreciated. There is narrowing of the L5-S1 disc space. The other disc spaces are well-maintained and unremarkable. No acute abnormality is identified. IMPRESSION: Previous fusion surgery and laminectomies. No complication or acute abnormality identified. Devin Panda MD IMG XRAY NO CONTRAST ORDERABLES Final Result * XRAY SPINE, CERVICAL; 3 VIEWS OR LESS FC (11/26/2021 4:08 PM EDT) Anatomical Region Laterality Modality Spine Radiographic Devika ging 11/27/2021 9:26 AM EDT Narrative 11/27/2021 2:02 PM EDT CONTRAST: AP and lateral views of the cervical spine. Comparison: 11/19/2021. Findings: Similar severe disc space narrowing with 4-5 mm of degenerative retrolisthesis at C4-C5. Benign heterotopic bone formation anterior to the C5 vertebral body. Similar severe disc space narrowing with spondylotic spurring and 4 mm of degenerative retrolisthesis at C5-C6. Similar severe disc space narrowing with degenerative endplate changes and anterior spondylotic spurring at C6-C7. Similar reactive bony ([place]) sclerotic changes at the C4, C5, C6, and upper C7 vertebral bodies. Multilevel uncovertebral joint and facet arthropathy at these same levels. The remaining disc space heights are preserved. Craniocervical junction is normal. No prevertebral soft tissue swelling IMPRESSION: Similar multilevel chronic spondylotic degenerative disc disease and arthropathy at C4-C5, C5-C6, and C6-C7 with degenerative retrolisthesis at C4-C5 and C5-C6. ADDENDUM: Agree with preliminary report. Procedure Note Wang Samaniego MD - 11/27/2021 CONTRAST: AP and lateral views of the cervical spine. Comparison: 11/19/2021. Findings: Similar severe disc space narrowing with 4-5 mm of degenerativeretrolisthesis at C4-C5. Benign heterotopic bone formation anterior to the C5 vertebralbody. Similar severe disc space narrowing with spondylotic spurring and 4 mm of degenerative retrolisthesis at C5-C6. Similar severe disc space narrowing with degenerative endplate changes and anterior spondylotic spurring at C6-C7. Similar reactive bony ([place]) sclerotic changes at the C4, C5, C6, andupper C7 vertebral bodies. Multilevel uncovertebral joint and facet arthropathy at these same levels. The remaining disc space heights are preserved. Craniocervical junction is normal. No prevertebral soft tissue swelling IMPRESSION: Similar multilevel chronic spondylotic degenerative disc disease and arthropathy at C4-C5, C5-C6, and C6-C7 with degenerative retrolisthesis at C4-C5 and C5-C6. ADDENDUM: Agree with preliminary report. Devin Panda MD IMG XRAY NO CONTRAST ORDERABLES Final Result * XRAY SPINE, CERVICAL; 4 OR 5 VIEWS FC (11/19/2021 4:18 PM EDT) Anatomical Region Laterality Modality Spine Radiographic Devika ging 11/21/2021 1:58 PM EDT Narrative 11/21/2021 1:58 PM EDT CONTRAST: 4 views of the cervical spine. Findings: There is posterior subluxation of C4 on C5 and C5 on C6. No significant instability is identified. There is severe degenerative disc disease from C4-C7. Impression: Severe degenerative changes with significant malalignment. Procedure Note Wang Samaniego MD - 11/21/2021 CONTRAST: 4 views of the cervical spine. Findings: There is posterior subluxation of C4 on C5 and C5 on C6. No significant instability is identified. There is severe degenerative disc disease from C4-C7. Impression: Severe degenerative changes with significant malalignment. Devin Panda MD IMG XRAY NO CONTRAST ORDERABLES Final Result * LUMBAR SPINE 3 VIEW MAX (03/18/2021 8:08 AM EST) RADIOLOGY REPORT [facility] Department of Radiology [address] [place] [address], [id number] Name: STACEY MORALES : 67 Date of Service: 03/16/21 1344 Acct Number: [id number] Order Number: [id number] Location: [facility] Report Number: [id number] Service: DEP SDC/ Requesting Physician: Bacilio Fernando Category: RADIOLOGY [facility] Exam: LUMBAR SPINE 2 OR 3 VIEWS Signs/Symptoms: post op Report Status: Signed Lumbar spine: 2 views. INDICATION: Postoperative. Patient is status post laminectomy and fusion at L4-S1. Vertebral bodies are maintained in height. Disc spaces are preserved. There is very mild anterior listhesis of L4-5. Degenerative changes are present at the lumbosacral junction. Incidental note is made of large amount of fecal material in the right colon. Surgical drain is present posteriorly. IMPRESSION: Status post surgery. Normal alignment. Date/Time of Dictation: 03/18/21910 Rayon Coner (if applicable): Approved By Attending Radiologist: Cassidy Akers MD 03/18/21 0911 [facility] Department of Radiology [address] [place] [address], [id number] [facility] Anatomical Region Laterality Modality Other 03/18/2021 8:08 AM EST Narrative 03/18/2021 9:11 AM EST Reason for Study/History: Department of Radiology TEST(S) PROCESSED BY [facility] XRAY us Unknown Provider [facility] IMAGING-[facility] Final Resul t * (ABNORMAL) GLUCOSE (03/17/2021 11:13 AM EST) Only the most recent of11 resultswithin the time period is included. Glucose (POC) 118(H) 70 - 99 mg/dL [facility] 03/17/2021 11:1 3 AM EST 03/17/2021 11:13 AM EST us Devin Panda MD LABORATORY Final Result [facility] [address] [place] [id number] * (ABNORMAL) CBC WITH 5 PART DIFF (03/16/2021 7:20 AM EST) WHITE BLOOD COUNT 7.2 3.9 - 11.0 x1000/uL [facility] RBC 3.02(L) 3.70 - 5.10 mil/ul [facility] Hemoglobin 9.4(L) 11.5 - 15.0 g/dL [facility] HCT (HEMATOCRIT) 29.0(L) 34.0 - 44.0 % [facility] MCV 96 80 - 100 fL [facility] MCH 31 27 - 33 pg [facility] MCHC 32 31 - 36 g/dL [facility] RDW 12.4 11.4 - 14.4 % [facility] PLATELETS 249 150 - 450 x1000/uL [facility] MPV 9.8 7.0 - 11.0 fL [facility] NEUTROPHILS 76 % [facility] LYMPHOCYTE % 11 % [facility] MONOCYTE % 12 % [facility] EOSINOPHIL % 1 % [facility] BASOPHIL % 0 % [facility] NEUTROPHILS (#) 5.5 1.8 - 7.0 x1000/uL [facility] LYMPHOCYTES # 0.8 0.7 - 4.5 x1000/uL [facility] MONOCYTES # 0.9(H) 0.1 - 0.8 x1000/uL [facility] EOSINOPHILS # 0.1 0.0 - 0.4 x1000/uL [facility] BASOPHILS # 0.0 0.0 - 0.2 x1000/uL [facility] 03/16/2021 7:20 AM EST 03/16/2021 7:20 AM EST us Devin Panda MD LABORATORY Final Result [facility] [address] [place] [address] * (ABNORMAL) BASIC METABOLIC PANEL (03/16/2021 7:20 AM EST) Glucose 265(H) 65 - 99 mg/dL [facility] BUN 18 5 - 26 mg/dL [facility] CREATININE 0.64 0.5 - 1.5 mg/dL [facility] BUN/Creatinine Ratio 28(H) 8 - 27 [facility] GLOM FILT RATE, EST 101.2 >59 mL/min [facility] IF -HEATH N 117.3 >59 mL/min [facility] SODIUM 142 134 - 144 mEq/L [facility] POTASSIUM 4.0 3.6 - 5.6 mEq/L [facility] CHLORIDE 111(H) 96 - 109 mEq/L [facility] CARBON DIOXIDE 26 20 - 32 mEq/L [facility] ANION GAP 5.0(L) 8 - 15 [facility] CALCIUM 8.2(L) 8.3 - 10.0 mg/dL [facility] 03/16/2021 7:20 AM EST 03/16/2021 7:20 AM EST us Devin Panda MD LABORATORY Final Result [facility] [address] [place] [id number] * OR IMAGING C-ARM (03/15/2021 11:13 AM EST) RADIOLOGY REPORT [facility] Department of Radiology [address] [place] [address], [id number] Name: STACEY MORALES : 67 Date of Service: 03/15/211133 Acct Number: [id number] Order Number: [id number] Location: [facility] Report Number: [id number] Service: [facility]/ Requesting Physician: Devin Panda MD ([facility]) Category: RADIOLOGY OR CASES Exam: OR IMAGING C-ARM Signs/Symptoms: CHECK INSTRUMENT PLACEMENT IN O.R. Report Status: Signed Study: Fluoroscopic guidance provided for lumbar spine surgery. Findings: 15 images are provided. Images submitted for evaluation demonstrate surgical instruments in the field of view for lumbar spine surgery. Total fluoroscopic time is 1.2 minutes Impression: Fluoroscopic guidance provided for lumbar spine surgery.. Please see full operative report for details. Date/Time of Dictation: 03/15/21 1216 Rayon Coner (if applicable): Approved By Attending Radiologist: Rupali Reich MD 03/15/21 1216 [facility] Department of Radiology [address] [place] [address], [id number] [facility] Anatomical Region Laterality Modality Other 03/15/2021 11:1 3 AM EST Narrative 03/15/2021 12:16 PM EST Reason for Study/History: Department of Radiology TEST(S) PROCESSED BY [facility] XRAY Devin Panda MD IMAGING-[facility] Final Result * UNSPECIFIED MAJOR PROCEDURE (03/15/2021) Narrative Procedure Note Devin Panda MD - 03/15/2021 2:56 PM EST OPERATIVE REPORT DATE OF OPERATION: 03/15/2021 PREOPERATIVE DIAGNOSES: 1. Lumbar spinal stenosis. 2. Spondylolisthesis. POSTOPERATIVE DIAGNOSES: 1. Lumbar spinal stenosis. 2. Spondylolisthesis. PROCEDURES: 1. Bilateral lumbar arthrodesis, L4-L5 and L5-S1. 2. Bilateral posterior lumbar segmental instrumentation with [employer]ryker[employer] system, bilateral L4, L5, S1. 3. Bilateral laminectomy of L4 with partial medial facetectomies and foraminotomies. 4. Bilateral laminectomy of L5 with partial medial facetectomies and foraminotomies. 5. Bone marrow aspiration from the bilateral iliac crest x 30 mL 6. Use of bone graft milk deliverer. 7. Use of local bone graft. ATTENDING SURGEON: Devin Panda M.D. BLUEPRINT BLOCKER: Bacilio Fernando PA-C. ANESTHESIA: GETA and 40 mL of 0.25% Marcaine plain. BLOOD LOSS: 250 mL COMPLICATIONS: None. FINDINGS: Stenosis, spondylolisthesis. CLINICAL HISTORY: Stacey Morales is a 55-year-old female who comes in with back and leg pain. She has exhausted a comprehensive nonoperative treatment program and elected to proceed with surgery. Risks and benefits were discussed. Risks include but not limited to infection, bleeding, dural tear, nerve or vessel injury, persistent pain, failureto fully relieve symptoms, necessity to perform second operation, DVT, PE, medical complications up to and including and all those on the informed consent. The patient understood those risks and signed the informed consent. The patient was seen in the holding area at [facility].The STOP sheet was completed by me personally in the holding area,verifying: The patients name and date of ; that the History and Physical was updated within 24 hours of the procedure and documented, dated, timedand signed; that the consent was correct and complete, dated, timed and signed; that the procedure site and side was marked by me personally with my initials so that they were clearly visible when prepped and draped; that relevant radiology studies were available; that implants, special equipment, and instruments were confirmed as available. The patient was brought to Operating Room 16 at [facility]. Successful general endotracheal anesthesia was induced by my anesthesia colleagues. The patient was then flipped prone on the Rj table. All bony prominences were well padded. We prepped and draped in the usual sterile fashion using a pre-prep of alcohol, followed byChloraPrep prep and a DuraPrep prep. We completed our procedural pause, verifying: the correct patient name and date of ; procedure to be done; side/site/level marking consistent with consent and history andphysical; allergies were confirmed; correct patient position with site clearly visible after being prepped and draped with my initials on the patients skin; confirmation that the antibiotic had been administered and documented prior to incision; confirmation of blood products; confirmation that implants, special equipment and instruments were available; confirmation that DVT prophylaxis with venodyne boots was placed on the patient and turned on. Once everyone in the room agreed, we proceeded. Spinal needle was placed off midline to help localize starting incision. Midline incision was created after taking the x-ray. We cleaned offfrom the bottom of L3 through the top of the sacrum. Metallic objects were placed and secondary x-ray was taken once we down over the lamina. We then worked out over the transverse processes of L4, L5, S1. Rolled sponges were placed in the lateral gutters. We divided ligaments at L3-L4, L4-L5 and L5-S1. We then created a trough in the left and the right side of L4 and L5 and with a Misonix bone scalpel, the central portion of lamina with the spinous process was removed en bloc and morcellized for later use as local bone graft. Partial medial facetectomies were done at L3-L4, L4-L5 and L5-S1. Bilateral foraminotomies were done of the exiting L4 and L5 nerve roots. We made sure the S1 nerve roots could traverse very nicely past the S1 pedicle. We then copiously irrigated the wound with pulse lavage. We then turned our attention to the instrumentation portion of the case. [place] Fay screws were placed at all locations. These were 6.5 mm screws. We placed all screws identically. We found the junction of the transverse process and the lateral portion of the facet as well as pedicle on lateral x-ray. We then drilled a barge pilot hole. The pedicle probe wasthen placed medialized the tip down the center of the pedicle. It was stimulated. There were no concerning thresholds. That was thenremoved. Ball-tipped feeler was placed. There was no perforation. That was removed, an undersized tap was then placed under lateral fluoroscopy and stimulated. There were no concerning thresholds. That was removed. Ball-tipped feeler was placed. There were no perforations. We then denuded the adjacent transverse process with a high-speed bur. A 6.5 mm screw was placed at all locations. There were 35 mm in length at S1, 40 mm at L4 and L5. All screws stimulated greater than 22 milliamps. We then checked final AP and lateral x-rays. Everything seemed to be in appropriate position. We denuded the facet joints at L4-L5 and L5-S1. Local bone graft, which we had saved throughout the case and morcellized and packed into the facet joints was also placed out over the transverse processes of L4 and L5 and S1 bilaterally. We then took the bone marrow aspiration needle and malleted into the patient's right iliac crest withdrawing 15 mL. We then did the identical procedure on the opposite side with trying another 15 mL. The bone marrow aspiration soakedVitoss was then placed in the facet joints as well laterally over thetransverse processes to make sure we had a nice fusion bed. This was all impacted into place at L4-L5 and L5-S1 at the facets and out over the transverse processes. Rods were placed bilaterally and caps were final tightened x 6. Rods were above and below the screws. We inserted 2 deep drains.We inserted some flowable hemostatic agent and fibrillar. We inserted a crosslink and final tightened x 3. All 6 end caps were final torquedand the crosslink was final tightened x 3. We then closed over the deep drains using 0 Vicryl, followed by 2-0 Vicryl, followed by 3-0 Monocryl. The patient was taken to recovery in stable condition. Electronically AuthenticatedBy: Devin Panda MD 108:12 A Devin Panda MD es TD: 02:09 P TT: 02:56 P Doc #: [id number] cc: Devin Panda MD Devin Panda MD PROCEDURES Final Result * SARS-COV-2, EZEQUIEL (03/12/2021 10:29 AM EST) [facility] SARS-COV-2, EZEQUIEL Not Detected Not Detected [facility] Comment: This nucleic acid amplification test was developed and its performance characteristics determined by [employer]. Nucleic acid amplification tests include RT-PCR and TMA. This test has not been FDA cleared or approved. This test has been authorized by FDA under an Emergency Use Authorization (EUA). This test is only authorized for the duration of time the declaration that circumstances exist justifying the authorization of the emergency use of in vitro diagnostic tests for detection of SARS-CoV-2 virus and/or diagnosis of COVID-19 infection under section 564(b)(1) of the Act, 21 U.S.C. 360bbb-3(b) (1), unless the authorization is terminated or revoked sooner. When diagnostic testing is negative, the possibility of a false negative result should be considered in the context of a patient's recent exposures and the presence of clinical signs and symptoms consistent with COVID-19. An individual without symptoms of COVID-19 and who is not shedding SARS-CoV-2 virus would expect to have a negative (not detected) result in this assay. 03/12/2021 10:2 9 AM EST 03/12/2021 10:29 AM EST us Devin Panda MD LABORATORY Final Result [facility] [address] [place] [address] * BLOOD TYPE AND ANTIBODY SCREEN (03/12/2021 9:15 AM EST) Pathologist [facility] BLOOD GROUP ABO A [facility] RH-(D) Positive [facility] ANTIBODY SCREEN Negative Negative [facility] 03/12/2021 9:15 AM EST 03/12/2021 9:15 AM EST Devin Panda MD LABORATORY Final Result [facility] [address] [place] [address] * EKG-TO BE READ & BILLED BY ADULT OR PEDIATRIC CARDIOLOGY (02/14/2021 4:21 PM EDT) Pathologist [facility] VENTRICULAR RATE 67 BPM MUS E EKG [...] ECG No previous ECGs available Confirmed by EZEKIEL GANT ([id number]) on 02/14/2021 7:57:08 PM [facility] 02/14/2021 4:21 PM EDT 02/14/2021 7:57 PM EDT Valentina Acevedo NP CARDIOVASCULAR-WITH INBSKT RTG Final Result [facility] * CBC INCLUDES DIFFERENTIAL AND PLATELET COUNT [...] 11:41 PM EDT Narrative Resulting Agency Comment [id number] Valentina Acevedo NP LAB SAME DAY RESULT Final R esult Performing Organization Address [facility] de Phone Number [facility] [address] [place] [address] * THYROID CASCADING REFLEX (02/14/2021 4:13 PM EDT) Pathologist [facility] TSH 1.18 mIU/L [facility] Comment: Reference Range > or = 20 Years 0.40-4.50 Ranges First trimester 0.26-2.66 Second trimester 0.55-2.73 Third trimester 0.43-2.91 02/14/2021 4:13 PM EDT 02/14/2021 11:41 PM EDT Narrative Resulting Agency Comment [id number] Valentina Acevedo CLAIMS SERVICE ADJUSTOR LABORATORY Final Resul t Performing Organization Address [facility] de Phone Number [facility] [address] [place] [address] * (ABNORMAL) HEMOGLOBIN A1C (02/14/2021 4:13 PM EDT) Only the most recent of2 resultswithin the time period is included. Hemoglobin A1C 7.0(H) <5.7 % of total [...] 11:41 PM EDT Narrative Resulting Agency Comment [id number] Valentina Aceveod NP LABORATORY Final Resul t [facility] [address] [place] [address] * (ABNORMAL) BASIC METABOLIC PANEL WITH (GFR) (02/14/2021 4:13 PM EDT) Glucose 46(L) 65 - 99 mg/dL [facility] Comment:Fasting reference in terval Urea Nitrogen Blood (BUN) 21 7 - 25 mg/dL [facility] Creatinine 0.75 0.50 - 1.05 mg/dL [facility] Comment: For patients >49 years of age, the reference limit for Creatinine is approximately 13% higher for people identified as -[place]cu[place]. EGFR 90 > OR = 60 mL/min/1 [...] needs for GFR calculation. Resulting Agency Comment [id number] Valentina Acevedo NP LABORATORY Final Resul t Performing Organization Address [facility] de Phone Number [facility] [address] [place] [address] * MRSA CULTURE SCREEN, NASAL ONLY (02/14/2021 3:49 PM EDT) Methicillin Resistant Staphylococcus Aureus Screen SEE NOTE [facility] Comment: MRSA CULTURE SCREEN Micro Number: [id number] Test Status: Final Specimen Source: Not given Specimen Quality: Adequate Result: No methicillin resistant Staphylococcus aureus (MRSA) isolated. 02/14/2021 3:49 PM EDT 02/14/2021 8:08 PM EDT Narrative Resulting Agency Comment [id number] Valentina Acevedo CLAIMS SERVICE ADJUSTOR LABORATORY Final Resul t Performing Organization Address [facility] de Phone Number [facility] [address] [place] [address] * DXA BONE DENSITY STUDY AXIAL (LSSPINE, HIP) (DX: OSTEOPENIA M85.80/ 733.90) FC (12/07/2020 3:46 PM EDT) Anatomical Region Laterality Modality BONE DENSITY Impressions 12/07/2020 9:15 PM EDT : Osteopenia (low bone mineral density/mass) LIMITATIONS: Degenerative changes appear to be present in the lumbar spine which may cause an artifactual increase in BMD. RECOMMENDATIONS: Treatment decisions should be based on the combination of BMD scores and assessment of other risk factors for fracture. This patient's BMD is in the range that pharmacologic therapy is usually not recommended, however clinical correlation is advised. All patients should be treated with appropriate dosages of calcium and vitamin D as necessary to meet recommended daily requirements if not clinically contraindicated. Weight bearing exercise and resistive weight training may also be helpful if clinically appropriate. According to the FRAX WHO fracture risk assessment tool, this patient's 10-year probability of fracture is as follows: hip: 0.2% and major osteoporotic: 10%. Cost/benefit analysis favors treatment when there is a 10-year probability of hip fracture greater than or equal to 3% or a 10-year probability of other major fracture greater than or equal to 20%. FOLLOWUP: Approximately 3-4 years or as clinically indicated. Narrative 12/07/2020 9:15 PM EDT DUAL-ENERGY X-RAY ABSORPTIOMETRY (DXA) SCAN: DXA MODEL: Thingies A in fast scan mode RISK FACTORS: The patient reports parent with a hip fracture. TREATMENT: The patient reports calcium and vitamin D. RESULTS: Lumbar Spine L1-L4: 0.886 g/cm2, T-score -1.5, Z-score -0.5 Left Femoral Neck: 0.785 g/cm2, T- score -0.6, Z-score 0.4 Left Total Hip: 0.857 g/cm2, T-score -0.7, Z-score -0.1 us Devin Panda MD IM DEXA IMAGING Final Result * NICOTINE AND COTININE, LC/MS/MS, SERUM/PLASMA (11/26/2020 12:31 PM EDT) Pathologist [facility] Nicotine <2 ng/mL [facility] Cotinine <2 ng/mL [facility] Comment: REFERENCE RANGE FOR NICOTINE: Smokers: 2-10 ng/mL Nonsmokers: <=4 ng/mL REFERENCE RANGE FOR COTININE: Smokers: 16-145 ng/mL Nonsmokers: <=8 ng/mL Individuals exposed to second-hand or passive tobacco smoke may demonstrate concentrations of nicotine and cotinine greater than those indicated for non-smokers. This test was developed and its analytical performance characteristics have been determined by [facility] [place], [place]. It has not been cleared or approved by the U.S. Food and Drug Administration. This assay has been validated pursuant to the CLIA regulations and is used for clinical purposes. 11/26/2020 12:3 1 PM EDT 11/26/2020 10:48 PM EDT Narrative Resulting Agency Comment [id number] us Devin Panda MD LABORATORY Final Result [facility] [address] [place] [address] * MRI LUMBAR SPINE W/O CONTRST(DX: BACK PAIN> 6 WKS, NO PRIOR LUMBAR SURGERY M54.5/ 724.2) (WITHIN2 WKS) FC (11/07/2020 5:25 PM EDT) Anatomical Region Laterality Modality Spine Magnetic Resonan ce 11/08/2020 1:31 PM EDT Narrative 11/08/2020 1:31 PM EDT CONTRAST: EXAM: MRI LUMBAR SPINE WITHOUT CONTRAST: COMPARISON: None TECHNIQUE: Routine multiplanar multisequence MR imaging performed. FINDINGS: Mild grade 1 anterolisthesis at L4-5. Alignment otherwise unremarkable. Vertebral body heights normal. No marrow signal abnormality with the exception of chronic degenerative endplate related signal change at L5-S1. Lower thoracic disks and L1-2 unremarkable. L2-3: Disc desiccation and minimal disc bulge. L3-4: Unremarkable. L4-5: Facet arthropathy with hypertrophy. No pars defect. Approximately 3 mm anterolisthesis. Disc desiccation, broad-based and posterior central disc bulge, without significant central canal stenosis. There are mild foraminal narrowings and no obvious effect on the exiting L4 nerve roots. L5-S1: Marked degenerative disc height loss, with small posterior central and left paramedian chronic disc protrusion versus osteophyte. This abuts the traversing S1 nerve root, but no nerve root displacement or compression is identified, and no nerve root edema is appreciated. There is moderate right greater than left foraminal narrowing, no definite compression of the exiting nerve roots. Facet joints are unremarkable. No abnormal signal intensity is present within the lower spinal cord. The conus terminates at an appropriate level. The paraspinous soft tissues are unremarkable. IMPRESSION: 1. Grade 1 degenerative type anterolisthesis at L4-5. Mild foraminal narrowings. No effect on adjacent nerve roots. 2. Chronic degenerative change at L5-S1 with small left paramedian chronic disc herniation versus osteophyte formation. This abuts the left S1 nerve root but currently there is no evidence of root compression. Procedure Note Mahin Sykes MD - 11/08/2020 CONTRAST: EXAM: MRI LUMBAR SPINE WITHOUT CONTRAST: COMPARISON: None TECHNIQUE: Routine multiplanar multisequence MR imaging performed. FINDINGS: Mild grade 1 anterolisthesis at L4-5. Alignment otherwise unremarkable. Vertebral body heights normal. No marrow signal abnormality with theexception of chronic degenerative endplate related signal change at L5-S1. Lower thoracic disks and L1-2 unremarkable. L2-3: Disc desiccation and minimal disc bulge. L3-4: Unremarkable. L4-5: Facet arthropathy with hypertrophy. No pars defect. Approximately3 mm anterolisthesis. Disc desiccation, broad-based and posterior central disc bulge, without significant central canal stenosis. There are mildforaminal narrowings and no obvious effect on the exiting L4 nerve roots. L5-S1: Marked degenerative disc height loss, with small posterior centraland left paramedian chronic disc protrusion versus osteophyte. This abuts the traversing S1 nerve root, but no nerve root displacement or compression is identified, and no nerve root edema is appreciated. There is moderate right greater than left foraminal narrowing, no definite compression of the exiting nerve roots. Facet joints are unremarkable. No abnormal signal intensity is present within the lower spinal cord. Theconus terminates at an appropriate level. The paraspinous soft tissues are unremarkable. IMPRESSION: 1. Grade 1 degenerative type anterolisthesis at L4-5. Mild foraminal narrowings. No effect on adjacent nerve roots. 2. Chronic degenerative change at L5-S1 with small left paramedianchronic disc herniation versus osteophyte formation. This abuts the left S1 nerveroot but currently there is no evidence of root compression. Devin Panda MD [facility] MR NO CONTRAST ORDERABLES F inal Result Visit Diagnoses Diagnosis Start Date Stenosis of lateral recess of lumbar spine Spinal stenosis, lumbar region, without neurogenic claudication 05/21/2020 Foraminal stenosis of lumbar region Spinal stenosis, lumbar region, without neurogenic claudication 05/21/2020 DDD (degenerative disc disease), lumbar Degeneration of lumbar or lumbosacral intervertebral disc 05/21/2020 Radiculitis Neuralgia, neuritis, and radiculitis, unspecified 05/21/2020 Foraminal stenosis of cervical region Spinal stenosis in cervical region 05/21/2020 Lumbar radiculopathy Thoracic or lumbosacral neuritis or radiculitis, unspecified 06/11/2020 Neuroforaminal stenosis of lumbar spine 06/11/2020 DDD (degenerative disc disease), lumbar Degeneration of lumbar or lumbosacral intervertebral disc 06/11/2020 Facet arthritis of lumbar region Lumbosacral spondylosis without myelopathy 06/11/2020 Lumbar radiculopathy Thoracic or lumbosacral neuritis or radiculitis, unspecified 06/29/2020 Lumbar radiculopathy Thoracic or lumbosacral neuritis or radiculitis, unspecified 08/17/2020 DDD (degenerative disc disease), lumbar Degeneration of lumbar or lumbosacral intervertebral disc 08/17/2020 Lumbar radiculopathy Thoracic or lumbosacral neuritis or radiculitis, unspecified 09/28/2020 Neuroforaminal stenosis of lumbar spine 09/28/2020 DDD (degenerative disc disease), lumbar Degeneration of lumbar or lumbosacral intervertebral disc 09/28/2020 Chronic low back pain, unspecified back pain laterality, unspecified whether sciatica present 10/12/2020 Chronic low back pain, unspecified back pain laterality, unspecified whether sciatica present 11/07/2020 Tobacco abuse, in remission Personal history of tobacco use, presenting hazards to health 11/26/2020 DDD (degenerative disc disease), lumbar Degeneration of lumbar or lumbosacral intervertebral disc 11/26/2020 Stenosis of lateral recess of lumbar spine Spinal stenosis, lumbar region, without neurogenic claudication 11/26/2020 Facet arthritis of lumbar region Lumbosacral spondylosis without myelopathy 11/26/2020 Foraminal stenosis of lumbar region Spinal stenosis, lumbar region, without neurogenic claudication 11/26/2020 Radiculitis Neuralgia, neuritis, and radiculitis, unspecified 11/26/2020 DDD (degenerative disc disease), lumbar Degeneration of lumbar or lumbosacral intervertebral disc 11/26/2020 Stenosis of lateral recess of lumbar spine Spinal stenosis, lumbar region, without neurogenic claudication 11/26/2020 Facet arthritis of lumbar region Lumbosacral spondylosis without myelopathy 11/26/2020 Foraminal stenosis of lumbar region Spinal stenosis, lumbar region, without neurogenic claudication 11/26/2020 DDD (degenerative disc disease), lumbar Degeneration of lumbar or lumbosacral intervertebral disc 11/26/2020 Stenosis of lateral recess of lumbar spine Spinal stenosis, lumbar region, without neurogenic claudication 11/26/2020 Facet arthritis of lumbar region Lumbosacral spondylosis without myelopathy 11/26/2020 Foraminal stenosis of lumbar region Spinal stenosis, lumbar region, without neurogenic claudication 11/26/2020 Radiculitis Neuralgia, neuritis, and radiculitis, unspecified 11/26/2020 Tobacco abuse, in remission Personal history of tobacco use, presenting hazards to health 11/26/2020 DDD (degenerative disc disease), lumbar Degeneration of lumbar or lumbosacral intervertebral disc 12/07/2020 Cervical spinal stenosis Spinal stenosis in cervical region 02/14/2021 Pre-op exam Preoperative examination, unspecified 02/14/2021 Lumbosacral radiculopathy due to degenerative joint disease of spine Degeneration of lumbar or lumbosacral intervertebral disc 02/14/2021 Essential hypertension 02/14/2021 Gastroesophageal reflux disease without esophagitis Esophageal reflux 02/14/2021 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) 02/14/2021 Hypoglycemia due to type 1 diabetes mellitus (HCC) 02/14/2021 Colloid nodular goiter Goiter, unspecified 02/14/2021 Cervical spinal stenosis Spinal stenosis in cervical region 02/14/2021 Pre-op exam Preoperative examination, unspecified 02/14/2021 Lumbosacral radiculopathy due to degenerative joint disease of spine Degeneration of lumbar or lumbosacral intervertebral disc 02/14/2021 Essential hypertension 02/14/2021 Gastroesophageal reflux disease without esophagitis Esophageal reflux 02/14/2021 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) 02/14/2021 Hypoglycemia due to type 1 diabetes mellitus (HCC) 02/14/2021 Colloid nodular goiter Goiter, unspecified 02/14/2021 Cervical spinal stenosis Spinal stenosis in cervical region 02/14/2021 Spinal stenosis of lumbar region with neurogenic claudication Spinal stenosis, lumbar region, with neurogenic claudication 03/15/2021 Spondylolisthesis of lumbar region Acquired spondylolisthesis 03/15/2021 Spinal stenosis of lumbar region with neurogenic claudication Spinal stenosis, lumbar region, with neurogenic claudication 03/29/2021 Status post lumbar spine operative procedure for decompression of spinal cord 04/01/2021 Status post lumbar spine operative procedure for decompression of spinal cord 04/02/2021 S/P lumbar fusion Arthrodesis status 04/02/2021 Spondylolisthesis of lumbar region Acquired spondylolisthesis 04/02/2021 Low back pain of over 3 months duration 04/02/2021 Radiculitis Neuralgia, neuritis, and radiculitis, unspecified 04/02/2021 Low back pain of over 3 months duration 05/14/2021 Radiculitis Neuralgia, neuritis, and radiculitis, unspecified 05/14/2021 Radiculitis Neuralgia, neuritis, and radiculitis, unspecified 05/14/2021 S/P lumbar fusion Arthrodesis status 05/15/2021 Radiculitis Neuralgia, neuritis, and radiculitis, unspecified 05/15/2021 S/P spinal fusionPT Arthrodesis status 05/18/2021 S/P spinal fusion Arthrodesis status 05/22/2021 S/P spinal fusion Arthrodesis status 05/27/2021 S/P spinal fusion Arthrodesis status 06/10/2021 S/P spinal fusion Arthrodesis status 06/17/2021 S/P spinal fusion Arthrodesis status 06/24/2021 Radiculitis Neuralgia, neuritis, and radiculitis, unspecified 06/25/2021 Low back pain of over 3 months duration 06/25/2021 Radiculitis Neuralgia, neuritis, and radiculitis, unspecified 06/25/2021 Radiculitis Neuralgia, neuritis, and radiculitis, unspecified 11/19/2021 Neck pain Cervicalgia 11/19/2021 Cervical myelopathy (HCC) Cervical spondylosis with myelopathy 11/19/2021 Cervical cord myelomalacia (HCC) Other myelopathy 11/19/2021 Radiculitis Neuralgia, neuritis, and radiculitis, unspecified 11/19/2021 Hand numbness Disturbance of skin sensation 11/19/2021 Neck pain Cervicalgia 11/19/2021 Cervical myelopathy (HCC) Cervical spondylosis with myelopathy 11/21/2021 Cervical myelopathy (HCC) Cervical spondylosis with myelopathy 11/25/2021 Cervical myelopathy (HCC) Cervical spondylosis with myelopathy 11/26/2021 Neck pain Cervicalgia 11/26/2021 Cervical cord myelomalacia (HCC) Other myelopathy 11/26/2021 Foraminal stenosis of cervical region Spinal stenosis in cervical region 11/26/2021 Low back pain, unspecified back pain laterality, unspecified chronicity, unspecified whether sciatica present 03/21/2022 Low back pain, unspecified back pain laterality, unspecified chronicity, unspecified whether sciatica present 03/24/2022 Low back pain of over 3 months duration 03/24/2022 Radiculitis Neuralgia, neuritis, and radiculitis, unspecified 03/24/2022 S/P lumbar fusion Arthrodesis status 03/24/2022 SI (sacroiliac) joint dysfunction Disorders of sacrum 04/18/2022 Piriformis syndrome of left side Lesion of sciatic nerve 04/18/2022 S/P lumbar fusion Arthrodesis status 04/18/2022 Left shoulder pain, unspecified chronicity 08/15/2022 Left shoulder pain, unspecified chronicity 08/18/2022 Nontraumatic complete tear of left rotator cuff 08/18/2022 Piriformis syndrome of left side Lesion of sciatic nerve 03/02/2023 Low back pain of over 3 months duration 03/02/2023 Sacroiliac joint dysfunction of right side Disorders of sacrum 09/16/2024 History of lumbar fusion 09/16/2024 History of lumbar fusion 11/30/2024 History of lumbar fusion 12/05/2024 Spondylolisthesis of lumbar region Acquired spondylolisthesis 12/05/2024 Low back pain of over 3 months duration 12/05/2024 Radiculitis Neuralgia, neuritis, and radiculitis, unspecified 12/05/2024 Spondylolisthesis of lumbar region Acquired spondylolisthesis 02/03/2025 Radiculitis Neuralgia, neuritis, and radiculitis, unspecified 02/03/2025 Sacroiliac joint dysfunction of right side Disorders of sacrum 02/03/2025 History of lumbar fusion 02/03/2025 SI (sacroiliac) joint dysfunction Disorders of sacrum 02/20/2025 Spondylolisthesis of lumbar region Acquired spondylolisthesis 02/20/2025 History of lumbar fusion 02/20/2025 Radiculitis Neuralgia, neuritis, and radiculitis, unspecified 02/20/2025 Care Teams Pharmacist Manager Relationship Specialty Start Date End Date Cynthia Fatima [address] [place] [id number] PCP - General Internal Medicine 05/21/20
--- OUTSIDE RECORDS SUMMARY | 2025-03-03 11:44 | XMS_ITS | Encounter Summary ---
Author Organization [facility] Address [address] [place] [address] Care Team Providers Care Snuff Drier Name Role Phone Cynthia Rosas MD Primary Care Provider + Encounter Details Date Type Department Care Team (Late Contact Info) Description 11/05/2016 Orders Only [facility] Presciption Center [facility] [address] [place] [address] Letty Richardson MD [address] [place] [address] Social History Tobacco Use Types Packs/Day Years [...] Description 03/08/2025 3:15 PM EST Procedure visit [facility] [address] [place] [phone] Azar Campos MD [address] [place] [address] 03/15/2025 8:00 AM EST Office Visit [facility] B [address] [place] [address] Jason Tapia MD [address] [place] [address] 03/22/2025 3:00 PM EST Follow-Up [facility] Internal Medicine [address] [place] [phone] Cynthia Rosas MD [address] [place] [address] 03/24/2025 8:20 AM EST Office Visit [facility] Podiatry [address] [place] [address] Slots Manager: Jessica Yip DPM [address] [place] [address] 05/18/2025 4:20 PM EST Follow-Up [facility] Endocrinology Clinic [address] [place] [address] Slots Manager: Kerwin Jacobs MD [address] [place] [address] 09/20/2025 4:00 PM EDT Office Visit [facility] Diabetes [facility] [address] [place] [address] Slots Manager: Lolita Rodriguez MD [address] [place] [address] 09/21/2025 3:30 PM EDT Office Visit [facility] Internal Medicine [address] [place] [phone] Cynthia Rosas MD [address] [place] [address] 02/23/2026 2:00 PM EST Office Visit [facility] Dermatology [address] [facility] [address] [place] [phone] Erna Silva, SONIA [address] [place] [address] documented as of this encounter Visit Diagnoses Not on filedocumented in this encounter Additional Health Concerns Infection Onset Date Last Indicated Resolved Time R/O Respiratory Virus Infection 08/26/2021 08/26/2021 10:26 PM EDT R/O Influenza 08/26/2021 08/26/2021 08/26/2021 10: 26 PM EDT COVID-19 - Suspected infection 08/26/2021 08/26/2021 08/26/2021 10:26 PM EDT documented as of this encounter Care Teams Snuff Drier Relationship Specialty Start Date End Date Cynthia Rosas MD [address] [place] [address] PCP - General Internal Medicine 10/30/16 documented as of this encounter
--- OUTSIDE RECORDS SUMMARY | 2025-03-03 11:44 | XMS_ITS | Encounter Summary ---
Author Organization [facility] Address [address] [place] [address] Care Team Providers Care Report Manager Name Role Phone Cynthia Rosas MD Primary Care Provider + Encounter Details Date Type Department Care Team (Late Contact Info) Description 05/25/2017 myChart Message [facility] [address] [place] [address] Patient Accounts Clerk: Winifred Richardson, Letty Mora MD [address] [place] [address] RE: Non-Urgent Medical Question Social History Tobacco [...] Description 03/08/2025 3:15 PM EST Procedure visit [facility] at [address] [phone] Azar Campos MD [address] [place] [address] 03/15/2025 8:00 AM EST Office Visit [facility] B [address] [place] [address] Jason Tapia MD [address] [place] [address] 03/22/2025 3:00 PM EST Follow-Up [facility] Internal Medicine [address] [place] [phone] Cynthia Rosas MD [address] [place] [address] 03/24/2025 8:20 AM EST Office Visit [facility] [address] [place] [address] Patient Accounts Clerk: Jessica Yip DPM [address] [place] [address] 05/18/2025 4:20 PM EST Follow-Up [facility] [address] [place] [address] Patient Accounts Clerk: Kerwin Jacobs MD [address] [place] [address] 09/20/2025 4:00 PM EDT Office Visit [facility] [address] [place] [address] Patient Accounts Clerk: Lolita Rodriguez MD [address] [place] [address] 09/21/2025 3:30 PM EDT Office Visit [facility] Internal Medicine [address] [place] [address] Cynthia Rosas MD [address] [place] [address] 02/23/2026 2:00 PM EST Office Visit [facility] Dermatology [address] [facility] [address] [place] [phone] Erna Silva PA [address] [place] [address] documented as of this encounter Visit Diagnoses Not on filedocumented in this encounter Additional Health Concerns Infection Onset Date Last Indicated Resolved Time R/O Respiratory Virus Infection 08/26/2021 2 08/26/2021 10:26 PM EDT R/O Influenza 08/26/2021 08/26/2021 08/26/2021 10: 26 PM EDT COVID-19 - Suspected infection 08/26/2021 08/26/2021 08/26/2021 10:26 PM EDT documented as of this encounter Care Teams Report Manager Relationship Specialty Start Date End Date Cynthia Rosas MD [address] [place] [address] PCP - General Internal Medicine 10/30/16 documented as of this encounter
--- OUTSIDE RECORDS SUMMARY | 2025-03-03 11:44 | XMS_ITS | Encounter Summary ---
Author Organization [facility] Address [address] [place] [address] Care Team Providers Care Milk Powder Grinder Name Role Phone Cynthia Rosas MD Primary Care Provider + Encounter Details Date Type Department Care Team (Late Contact Info) Description 11/24/2016 Orders Only [facility] Presciption Center [facility] 55 [place] [address] Letty Richardson MD [address] [place] [address] Social History Tobacco Use Types Packs/Day Years [...] Description 03/08/2025 3:15 PM EST Procedure visit [facility] [address] [place] [phone] Azar Campos MD [address] [place] [address] 03/15/2025 8:00 AM EST Office Visit [facility] B [address] [place] [address] Jason Tapia MD [address] [place] [address] 03/22/2025 3:00 PM EST Follow-Up [facility] Internal Medicine [address] [place] [phone] Cynthia Rosas MD [address] [place] [address] 03/24/2025 8:20 AM EST Office Visit [facility] Podiatry [address] [place] [address] Admittance Attendant: Jessica Yip DPM [address] [place] [address] 05/18/2025 4:20 PM EST Follow-Up [facility] Endocrinology Clinic [address] [place] [address] Admittance Attendant: Kerwin Jacobs MD [address] [place] [address] 09/20/2025 4:00 PM EDT Office Visit [facility] Diabetes Clinic [address] [place] [address] Admittance Attendant: Lolita Rodriguez MD [address] [place] [address] 09/21/2025 3:30 PM EDT Office Visit [facility] Internal Medicine [address] [place] [phone] Cynthia Rosas MD [address] [place] [address] 02/23/2026 2:00 PM EST Office Visit [facility] Dermatology [address] [facility] [address] [place] [phone] Erna Silva, SONIA [address] [place] [address] documented as of this encounter Visit Diagnoses Not on filedocumented in this encounter Additional Health Concerns Infection Onset Date Last Indicated Resolved Time R/O Respiratory Virus Infection 08/26/2021 08/26/2021 10:26 PM EDT R/O Influenza 08/26/2021 08/26/2021 08/26/2021 10: 26 PM EDT COVID-19 - Suspected infection 08/26/2021 08/26/2021 08/26/2021 10:26 PM EDT documented as of this encounter Care Teams Milk Powder Grinder Relationship Specialty Start Date End Date Cynthia Rosas MD [address] [place] [address] PCP - General Internal Medicine 10/30/16 documented as of this encounter
--- OUTSIDE RECORDS SUMMARY | 2025-03-03 11:44 | XMS_ITS | Encounter Summary ---
Author Organization [facility] Address [address] [place] [address] Care Team Providers Care Physical Chemist Name Role Phone Cynthia Rosas MD Primary Care Provider + Reason for Visit * Reason Onset Date Comments [id number] SURGERY DATE 11/06/2022 Encounter Details Date Type Department Care Team ([facility] st Contact Info) Description 11/06/2022 Telephone [facility] Patient Access [facility] [address] [place] [address] Telephone Intake, Staff [id number] SURGERY DATE Social History Tobacco Use Types Packs/Day Years Used Date Smoking Tobacco: Former Cigarettes 23.4 1 - 06/11/2020 Smokeless Tobacco: Never Comments:: Alcohol Use Standard Drinks/Week Comments Yes 0 (1 standard drink = 0.6 oz pur e alcohol) social Transportation Answer Date Recorded Please hedy the areas for wh ich the patient would like information or assistance: Employment 07/24/2022 Lack of Transportation (Medical) Not on file 07/24/2022 Housing Stability Answer Date Recorded Please hedy the areas for wh ich the patient would like information or assistance: Employment 07/24/2022 Unable to Pay for Housing in the Last Year Not o n file 07/24/2022 Last EPDS Total Score Not on file 07/24/2022 Unstable Housing in the Last Year Not on file 07/24/2022 Comments No Sex and Gender Information Value Date Recorded Sex Assigned at Female 03/11/2020 12:10 PM EST Legal Sex Female 2:33 AM EDT Gender Identity Female 07/09/2017 11:19 AM EDT Sexual Orientation Straight 03/11/2020 12 :10 PM EST documented as of this encounter Miscellaneous Notes * Telephone Encounter - Winifred Mo - 11/06/2022 11:42 AM EDT Patient called stating that she would like to cancel surgery scheduled with Dr. Cullen on 12/29/22. Any questions, please call patient [phone] Thank you documented in this encounter Plan of Treatment Upcoming Encounters Date Type Department Care Team (Late st Contact Info) Description 03/08/2025 3:15 PM EST Procedure visit [facility] at [address] [phone] Azar Campos MD [address] [place] [address] 03/15/2025 8:00 AM EST Office Visit [facility] B [address] [place] [address] Jason Tapia MD 119 [place] [address] 03/22/2025 3:00 PM EST Follow-Up [facility] Internal Medicine [address] [place] [phone] Cynthia Rosas MD [address] [place] [address] 03/24/2025 8:20 AM EST Office Visit [facility] Podiatry 55 [place] [address] Dry Dip Worker: Jessica Yip DPM [address] [place] [address] 05/18/2025 4:20 PM EST Follow-Up [facility] Endocrinology Clinic [address] [place] [address] Dry Dip Worker: Kerwin Jacobs MD [address] [place] [address] 09/20/2025 4:00 PM EDT Office Visit [facility] Diabetes Clinic [address] [place] [address] Dry Dip Worker: Lolita Rodriguez MD [address] [place] [address] 09/21/2025 3:30 PM EDT Office Visit [facility] Internal Medicine [address] [place] [phone] Cynthia Rosas MD [address] [place] [address] 02/23/2026 2:00 PM EST Office Visit [facility] Dermatology [address] [facility] [address] [place] [phone] Erna Silva PA [address] [place] [address] documented as of this encounter Visit Diagnoses Not on filedocumented in this encounter Care Teams Physical Chemist Relationship Specialty Start Date End Date Cynthia Rosas MD [address] [place] [address] PCP - General Internal Medicine 10/30/16 documented as of this encounter
--- OUTSIDE RECORDS SUMMARY | 2025-03-03 11:44 | XMS_ITS | Encounter Summary ---
Author Organization [facility] Address [address] [place] [address] Care Team Providers Care Tableau Report Developer Name Role Phone Cynthia Rosas MD Primary Care Provider + Encounter Details Date Type Department Care Team (Late Contact Info) Description 07/09/2017 myChart Message [facility] [address] [place] [address] Fine Unhairer: Winifred Richardson, Letty Mora MD [address] [place] [address] RE: Non-Urgent Medical Question Social History Tobacco [...] Description 03/08/2025 3:15 PM EST Procedure visit [facility] at [address] [phone] Azar Campos MD [address] [place] [address] 03/15/2025 8:00 AM EST Office Visit [facility] B [address] [place] [address] Jason Tapia MD [address] [place] [address] 03/22/2025 3:00 PM EST Follow-Up [facility] Internal Medicine [address] [place] [phone] Cynthia Rosas MD [address] [place] [address] 03/24/2025 8:20 AM EST Office Visit [facility] Podiatry 55 [place] [address] Fine Unhairer: Jessica Yip DPM [address] [place] [address] 05/18/2025 4:20 PM EST Follow-Up [facility] Endocrinology Clinic [address] [place] [address] Fine Unhairer: Kerwin Jacobs MD [address] [place] [address] 09/20/2025 4:00 PM EDT Office Visit [facility] [address] [place] [address] Fine Unhairer: Lolita Rodriguez MD [address] [place] [address] 09/21/2025 3:30 PM EDT Office Visit [facility] Internal Medicine [address] [place] [address] Cynthia Rosas MD [address] [place] [address] 02/23/2026 2:00 PM EST Office Visit [facility] Dermatology [address] [facility] [address] [place] [phone] Erna Silva PA [address] [place] [address] documented as of this encounter Visit Diagnoses Not on filedocumented in this encounter Additional Health Concerns Infection Onset Date Last Indicated Resolved Time R/O Respiratory Virus Infection 08/26/2021 2 08/26/2021 10:26 PM EDT R/O Influenza 08/26/2021 08/26/2021 08/26/2021 10: 26 PM EDT COVID-19 - Suspected infection 08/26/2021 08/26/2021 08/26/2021 10:26 PM EDT documented as of this encounter Care Teams Tableau Report Developer Relationship Specialty Start Date End Date Cynthia Rosas MD [address] [place] [address] PCP - General Internal Medicine 10/30/16 documented as of this encounter
--- OUTSIDE RECORDS SUMMARY | 2025-03-03 11:44 | XMS_ITS | Encounter Summary ---
Author Organization [facility] Address [address] [place] [address] Care Team Providers Care Quality Manager Name Role Phone Cynthia Rosas MD Primary Care Provider + Encounter Details Date Type Department Care Team (Late Contact Info) Description 10/15/2016 Orders Only [facility] Presciption Center [facility] [address] [place] [address] Cynthia Rosas MD [address] [place] [address] Social History Tobacco Use Types Packs/Day Years [...] Description 03/08/2025 3:15 PM EST Procedure visit [facility] [address] [place] [phone] Azar Campos MD [address] [place] [address] 03/15/2025 8:00 AM EST Office Visit [facility] [address] [place] [address] Jason Tapia MD [address] [place] [address] 03/22/2025 3:00 PM EST Follow-Up [facility] Internal Medicine [address] [place] [phone] Cynthia Rosas MD [address] [place] [address] 03/24/2025 8:20 AM EST Office Visit [facility] Podiatry [address] [place] [address] Hone Operator: Jessica Yip DPM [address] [place] [address] 05/18/2025 4:20 PM EST Follow-Up [facility] Endocrinology Clinic [address] [place] [address] Hone Operator: Kerwin Jacobs MD [address] [place] [address] 09/20/2025 4:00 PM EDT Office Visit [facility] Diabetes Clinic [address] [place] [address] Hone Operator: Lolita Rodriguez MD [address] [place] [address] 09/21/2025 3:30 PM EDT Office Visit [facility] Internal Medicine [address] [place] [phone] Cynthia Rosas MD [address] [place] [address] 02/23/2026 2:00 PM EST Office Visit [facility] Dermatology [address] [facility] [address] [place] [phone] Erna Silva, SONIA [address] [place] [address] documented as of this encounter Visit Diagnoses Not on filedocumented in this encounter Additional Health Concerns Infection Onset Date Last Indicated Resolved Time R/O Respiratory Virus Infection 08/26/2021 08/26/2021 10:26 PM EDT R/O Influenza 08/26/2021 08/26/2021 08/26/2021 10: 26 PM EDT COVID-19 - Suspected infection 08/26/2021 08/26/2021 08/26/2021 10:26 PM EDT documented as of this encounter Care Teams Quality Manager Relationship Specialty Start Date End Date Cynthia Rosas MD [address] [place] [address] PCP - General Internal Medicine 10/30/16 documented as of this encounter
--- OUTSIDE RECORDS SUMMARY | 2025-03-03 11:44 | XMS_ITS | Encounter Summary ---
Author Organization [facility] Address [address] [place] [address] Care Team Providers Care Box Office Attendant Name Role Phone Cynthia Rosas MD Primary Care Provider + Encounter Details Date Type Department Care Team (Late Contact Info) Description 06/26/2016 Orders Only [facility] Presciption Center [facility] 55 [place] [address] Letty Richardson MD [address] [place] [address] Social History Tobacco Use Types Packs/Day Years [...] Description 03/08/2025 3:15 PM EST Procedure visit [facility] at [facility] [address] [place] [phone] Azar Campos MD [address] [place] [address] 03/15/2025 8:00 AM EST Office Visit [facility] B [address] [place] [address] Jason Tapia MD [address] [place] [address] 03/22/2025 3:00 PM EST Follow-Up [facility] Internal Medicine [address] [place] [phone] Cynthia Rosas MD [address] [place] [address] 03/24/2025 8:20 AM EST Office Visit [facility] Podiatry [address] [place] [address] Commercial Construction Superintendent: Jessica Yip DPM [address] [place] [address] 05/18/2025 4:20 PM EST Follow-Up [facility] Endocrinology Clinic [address] [place] [address] Commercial Construction Superintendent: Kerwin Jacobs MD [address] [place] [address] 09/20/2025 4:00 PM EDT Office Visit [facility] Diabetes Clinic [address] [place] [address] Commercial Construction Superintendent: Lolita Rodriguez MD [address] [place] [address] 09/21/2025 3:30 PM EDT Office Visit [facility] Internal Medicine [address] [place] [phone] Cynthia Rosas MD [address] [place] [address] 02/23/2026 2:00 PM EST Office Visit [facility] Dermatology [address] [facility] [address] [place] [phone] Erna Silva, SONIA [address] [place] [address] documented as of this encounter Visit Diagnoses Not on filedocumented in this encounter Additional Health Concerns Infection Onset Date Last Indicated Resolved Time R/O Respiratory Virus Infection 08/26/2021 08/26/2021 10:26 PM EDT R/O Influenza 08/26/2021 08/26/2021 08/26/2021 10: 26 PM EDT COVID-19 - Suspected infection 08/26/2021 08/26/2021 08/26/2021 10:26 PM EDT documented as of this encounter Care Teams Box Office Attendant Relationship Specialty Start Date End Date Cynthia Rosas MD [address] [place] [address] PCP - General Internal Medicine 10/30/16 documented as of this encounter
--- OUTSIDE RECORDS SUMMARY | 2025-03-03 11:44 | XMS_ITS | Encounter Summary ---
Author Organization [facility] Address [address] [place] [address] Care Team Providers Care Software Writer Name Role Phone Cynthia Rosas MD Primary Care Provider + Encounter Details Date Type Department Care Team (Late Contact Info) Description 2016 Orders Only [facility] Presciption Center [facility] [address] [place] [address] Cynthia Rosas MD [address] [place] [address] Social History Tobacco Use Types Packs/Day Years [...] EST Procedure visit [facility] [address] [place] [phone] Azar Campos MD [address] [place] [address] 03/15/2025 8:00 AM EST Office Visit [facility] [address] [place] [address] Jason Tapia MD [address] [place] [address] 03/22/2025 3:00 PM EST Follow-Up [facility] Internal Medicine [address] [place] [phone] Cynthia Rosas MD [address] [place] [address] 03/24/2025 8:20 AM EST Office Visit [facility] Podiatry [address] [place] [address] Hand Coper: Jessica Yip DPM [address] [place] [address] 05/18/2025 4:20 PM EST Follow-Up [facility] Endocrinology Clinic [address] [place] [address] Hand Coper: Kerwin Jacobs MD [address] [place] [address] 09/20/2025 4:00 PM EDT Office Visit [facility] Diabetes Clinic [address] [place] [address] Hand Coper: Lolita Rodriguez MD [address] [place] [address] 09/21/2025 3:30 PM EDT Office Visit [facility] Internal Medicine [address] [place] [phone] Cynthia Rosas MD [address] [place] [address] 02/23/2026 2:00 PM EST Office Visit [facility] Dermatology [address] [facility] [address] [place] [phone] Erna Silva, SONIA [address] [place] [address] documented as of this encounter Visit Diagnoses Not on filedocumented in this encounter Additional Health Concerns Infection Onset Date Last Indicated Resolved Time R/O Respiratory Virus Infection 08/26/2021 08/26/2021 10:26 PM EDT R/O Influenza 08/26/2021 08/26/2021 08/26/2021 10: 26 PM EDT COVID-19 - Suspected infection 08/26/2021 08/26/2021 08/26/2021 10:26 PM EDT documented as of this encounter Care Teams Software Writer Relationship Specialty Start Date End Date Cynthia Rosas MD [address] [place] [address] PCP - General Internal Medicine 10/30/16 documented as of this encounter
--- OUTSIDE RECORDS SUMMARY | 2025-03-03 11:44 | XMS_ITS | Encounter Summary ---
Author Organization [facility] Address [address] [place] [address] Care Team Providers Care Dirt Bike Mechanic Name Role Phone Cynthia Rosas MD Primary Care Provider + Encounter Details Date Type Department Care Team (Late Contact Info) Description 08/18/2017 myChart Message [facility] Internal Medicine [address] [place] [phone] Cynthia Rosas MD [address] [place] [address] RE: Visit Follow-Up Question Social History Tobacco Use Types Packs/Day [...] Description 03/08/2025 3:15 PM EST Procedure visit [facility] at [address] [phone] Azar Campos MD [address] [place] [address] 03/15/2025 8:00 AM EST Office Visit [facility] B [address] [place] [address] Jason Tapia MD [address] [place] [address] 03/22/2025 3:00 PM EST Follow-Up [facility] Internal Medicine [address] [place] [address] Cynthia Rosas MD [address] [place] [address] 03/24/2025 8:20 AM EST Office Visit [facility] Podiatry [address] [place] [address] Oracle Adf Consultant: Jessica Yip DPM [address] [place] [address] 05/18/2025 4:20 PM EST Follow-Up [facility] Endocrinology Clinic [address] [place] [address] Oracle Adf Consultant: Kerwin Jacobs MD [address] [place] [address] 09/20/2025 4:00 PM EDT Office Visit [facility] Diabetes Clinic [address] [place] [address] Oracle Adf Consultant: Lolita Rodriguez MD [address] [place] [address] 09/21/2025 3:30 PM EDT Office Visit [facility] Internal Medicine [address] [place] [address] Cynthia Rosas MD [address] [place] [address] 02/23/2026 2:00 PM EST Office Visit [facility] Dermatology [address] [facility] [address] [place] [phone] Erna Silva PA [address] [place] [address] documented as of this encounter Visit Diagnoses Not on filedocumented in this encounter Additional Health Concerns Infection Onset Date Last Indicated Resolved Time R/O Respiratory Virus Infection 08/26/2021 08/26/2021 10:26 PM EDT R/O Influenza 08/26/2021 08/26/2021 08/26/2021 10: 26 PM EDT COVID-19 - Suspected infection 08/26/2021 08/26/2021 08/26/2021 10:26 PM EDT documented as of this encounter Care Teams Dirt Bike Mechanic Relationship Specialty Start Date End Date Cynthia Rosas MD [address] [place] [address] PCP - General Internal Medicine 10/30/16 documented as of this encounter
--- OUTSIDE RECORDS SUMMARY | 2025-03-03 11:44 | XMS_ITS | Encounter Summary ---
Author Organization [facility] Address [address] [place] [address] Care Team Providers Care Purchase Price Analyst Name Role Phone Cynthia Rosas MD Primary Care Provider + Encounter Details Date Type Department Care Team (Late Contact Info) Description 07/31/2017 myChart Message [facility] Internal Medicine [address] [place] [phone] Cynthia Rosas MD [address] [place] [address] RE: Non-Urgent Medical Question Social History Tobacco [...] Description 03/08/2025 3:15 PM EST Procedure visit [facility] at [address] [phone] Azar Campos MD [address] [place] [address] 03/15/2025 8:00 AM EST Office Visit [facility] B [address] [place] [address] Jason Tapia MD [address] [place] [address] 03/22/2025 3:00 PM EST Follow-Up [facility] Internal Medicine [address] [place] [address] Cynthia Rosas MD [address] [place] [address] 03/24/2025 8:20 AM EST Office Visit [facility] Podiatry [address] [place] [address] What Job Titles Mean: Jessica Yip DPM [address] [place] [address] 05/18/2025 4:20 PM EST Follow-Up [facility] Endocrinology Clinic [address] [place] [address] What Job Titles Mean: Kerwin Jacobs MD [address] [place] [address] 09/20/2025 4:00 PM EDT Office Visit [facility] Diabetes Clinic [address] [place] [address] What Job Titles Mean: Lolita Rodriguez MD [address] [place] [address] 09/21/2025 3:30 PM EDT Office Visit [facility] Internal Medicine [address] [place] [address] Cynthia Rosas MD [address] [place] [address] 02/23/2026 2:00 PM EST Office Visit [facility] Dermatology [address] [facility] [address] [place] [phone] Erna Silva PA [address] [place] [address] documented as of this encounter Visit Diagnoses Not on filedocumented in this encounter Additional Health Concerns Infection Onset Date Last Indicated Resolved Time R/O Respiratory Virus Infection 08/26/2021 08/26/2021 10:26 PM EDT R/O Influenza 08/26/2021 08/26/2021 08/26/2021 10: 26 PM EDT COVID-19 - Suspected infection 08/26/2021 08/26/2021 08/26/2021 10:26 PM EDT documented as of this encounter Care Teams Purchase Price Analyst Relationship Specialty Start Date End Date Cynthia Rosas MD [address] [place] [address] PCP - General Internal Medicine 10/30/16 documented as of this encounter
--- OUTSIDE RECORDS SUMMARY | 2025-03-03 11:44 | XMS_ITS | Encounter Summary ---
Author Organization [facility] Address [address] [place] [address] Care Team Providers Care Assistant Store Manager Operations Name Role Phone Cynthia Rosas MD Primary Care Provider + Encounter Details Date Type Department Care Team (Late st Contact Info) Description 08/18/2017 myChart Message [facility] Diabetes Clinic [address] [place] [address] Plastic Molder: Winifred Richardson, Letty Mora MD [address] [place] [address] RE: Test Results Question Social History Tobacco Use Types Packs/Day [...] Telephone Encounter - SARAH Mariee - 08/18/2017 8:46 AM EDT Just wondering if you saw pt's chart message. documented in this encounter Plan of Treatment Upcoming Encounters Date Type Department Care Team (Late st Contact Info) Description 03/08/2025 3:15 PM EST Procedure visit [facility] at [address] [phone] Azar Campos MD [address] [place] [address] 03/15/2025 8:00 AM EST Office Visit [facility] B [address] [place] [address] Jason Tapia MD [address] [place] [address] 03/22/2025 3:00 PM EST Follow-Up [facility] Internal Medicine [address] [place] [address] Cynthia Rosas MD [address] [place] [address] 03/24/2025 8:20 AM EST Office Visit [facility] Podiatry [address] [place] [address] Plastic Molder: Jessica Yip DPM [address] [place] [address] 05/18/2025 4:20 PM EST Follow-Up [facility] Endocrinology Clinic [address] [place] [address] Plastic Molder: Kerwin Jacobs MD [address] [place] [address] 09/20/2025 4:00 PM EDT Office Visit [facility] Diabetes Clinic [address] [place] [address] Plastic Molder: Lolita Rodriguez MD [address] [place] [address] 09/21/2025 3:30 PM EDT Office Visit [facility] Internal Medicine [address] [place] [address] Cynthia Rosas MD [address] [place] [address] 02/23/2026 2:00 PM EST Office Visit [facility] Dermatology [address] [facility] [address] [place] [phone] Erna Silva PA [address] [place] [address] documented as of this encounter Visit Diagnoses Not on filedocumented in this encounter Additional Health Concerns Infection Onset Date Last Indicated Resolved Time R/O Respiratory Virus Infection 08/26/2021 08/26/2021 10:26 PM EDT R/O Influenza 08/26/2021 08/26/2021 08/26/2021 10: 26 PM EDT COVID-19 - Suspected infection 08/26/2021 08/26/2021 08/26/2021 10:26 PM EDT documented as of this encounter Care Teams Assistant Store Manager Operations Relationship Specialty [place] [address] [place] [address] PCP - General Internal Medicine 10/30/16 documented as of this encounter
--- OUTSIDE RECORDS SUMMARY | 2025-03-03 11:44 | XMS_ITS | Encounter Summary ---
Author Organization [facility] Address [address] [place] [address] Care Team Providers Care Instrument And Electrical Technician Name Role Phone Cynthia Rosas MD Primary Care Provider + Encounter Details Date Type Department Care Team (Late st Contact Info) Description 12/09/2016 Orders Only [facility] Presciption Center [facility] [address] [place] [address] Kvng Abbott MD [address] [facility] [place] [address] Social History Tobacco Use Types Packs/Day Years [...] Description 03/08/2025 3:15 PM EST Procedure visit [facility] [address] [place] [phone] Azar Campos MD [address] [place] [address] 03/15/2025 8:00 AM EST Office Visit [facility] B [address] [place] [address] Jason Tapia MD [address] [place] [address] 03/22/2025 3:00 PM EST Follow-Up [facility] Internal Medicine [address] [place] [phone] Cynthia Rosas MD [address] [place] [address] 03/24/2025 8:20 AM EST Office Visit [facility] Podiatry [address] [place] [address] Program Development Specialist: Jessica Yip DPM [address] [place] [address] 05/18/2025 4:20 PM EST Follow-Up [facility] Endocrinology Clinic [address] [place] [address] Program Development Specialist: Kerwin Jacobs MD [address] [place] [address] 09/20/2025 4:00 PM EDT Office Visit [facility] Diabetes Clinic [address] [place] [address] Program Development Specialist: Lolita Rodriguez MD [address] [place] [address] 09/21/2025 3:30 PM EDT Office Visit [facility] Internal Medicine [address] [place] [address] Cynthia Rosas MD [address] [place] [address] 02/23/2026 2:00 PM EST Office Visit [facility] Dermatology [address] [facility] [address] [place] [phone] Erna Silva PA [address] [place] [address] documented as of this encounter Visit Diagnoses Not on filedocumented in this encounter Additional Health Concerns Infection Onset Date Last Indicated Resolved Time R/O Respiratory Virus Infection 08/26/2021 08/26/2021 10:26 PM EDT R/O Influenza 08/26/2021 08/26/2021 08/26/2021 10: 26 PM EDT COVID-19 - Suspected infection 08/26/2021 08/26/2021 08/26/2021 10:26 PM EDT documented as of this encounter Care Teams Instrument And Electrical Technician Relationship Specialty Start Date End Date Cynthia Rosas MD [address] [place] [address] PCP - General Internal Medicine 10/30/16 documented as of this encounter
--- OUTSIDE RECORDS SUMMARY | 2025-03-03 11:44 | XMS_ITS | Encounter Summary ---
Author Organization [facility] Address [address] [place] [address] Care Team Providers Care Therapeutic Assistant Name Role Phone Cynthia Rosas MD Primary Care Provider + Encounter Details Date Type Department Care Team (Late st Contact Info) Description 07/03/2016 Orders Only [facility] Presciption Center [address] [address] Amy Melvin Social History Tobacco Use Types Packs/Day Years [...] Description 03/08/2025 3:15 PM EST Procedure visit [facility] at [address] [phone] Azar Campos MD [address] [place] [address] 03/15/2025 8:00 AM EST Office Visit [facility] B [address] [place] [address] Jason Tapia MD [address] [place] [phone] 03/22/2025 3:00 PM EST Follow-Up [facility] Internal Medicine [address] [place] [address] Cynthia Rosas MD [address] [place] [address] 03/24/2025 8:20 AM EST Office Visit [facility] Podiatry [address] [place] [address] Animal Daycare Provider: Jessica Yip DPM [address] [place] [address] 05/18/2025 4:20 PM EST Follow-Up [facility] Endocrinology Clinic [address] [place] [address] Animal Daycare Provider: Kerwin Jacobs MD [address] [place] [address] 09/20/2025 4:00 PM EDT Office Visit [facility] Diabetes Clinic [address] [place] [address] Animal Daycare Provider: Lolita Rodriguez MD [address] [place] [address] 09/21/2025 3:30 PM EDT Office Visit [facility] Internal Medicine [address] [place] [address] Cynthia Rosas MD [address] [place] [address] 02/23/2026 2:00 PM EST Office Visit [facility] Dermatology [address] [facility] [address] [place] [address] Erna Silva PA [address] [place] [address] documented as of this encounter Visit Diagnoses Not on filedocumented in this encounter Additional Health Concerns Infection Onset Date Last Indicated Resolved Time R/O Respiratory Virus Infection 08/26/2021 08/26/2021 10:26 PM EDT R/O Influenza 08/26/2021 08/26/2021 08/26/2021 10: 26 PM EDT COVID-19 - Suspected infection 08/26/2021 08/26/2021 08/26/2021 10:26 PM EDT documented as of this encounter Care Teams Therapeutic Assistant Relationship Specialty Start Date End Date Cynthia Rosas MD [address] [place] [address] PCP - General Internal Medicine 10/30/16 documented as of this encounter
--- OUTSIDE RECORDS SUMMARY | 2025-03-03 11:45 | XMS_ITS | Encounter Summary ---
Author Organization [facility] Address [address] [place] [address] Care Team Providers Care Road Boss Name Role Phone Cynthia Fatima Primary Care Provider [phone] Encounter Details Date Type Department Care Team (Late Contact Info) Description 08/15/[address] [facility] Orthopedic Surgery-Entrance C [address] [place] [address] Nicola Corrigan MD [address] [place] [address] Social History Tobacco Use Types Packs/Day Years [...] Description 03/23/2025 3:40 PM EST Minor Procedure/Test [facility] Orthopedic Surgery-Entrance C [address] [place] [address] Gómez Demarco MD [address] [place] [address] AUTH# [id number] documented as of this encounter Results * Due to [place] state law, this organization might not be sharing negative HIV tests. * XRAY SHOULDER COMPLETE MIN 2 VWS [...] documented in this encounter Visit Diagnoses Diagnosis Left shoulder pain, unspecified chronicity Left shoulder pain, unspecified chronicity documented in this encounter Care Teams Road Boss Relationship Specialty Start Date End Date Cynthia Fatima [address] [place] [address] PCP - General Internal Medicine 05/21/20 documented as of this encounter
--- OUTSIDE RECORDS SUMMARY | 2025-03-03 11:45 | XMS_ITS | Encounter Summary ---
Author Organization [facility] Address [address] [place] [address] Care Team Providers Care Men'S Golf Coach Name Role Phone Cynthia Fatima Lester Primary Care Provider [phone] Encounter Details Date Type Department Care Team (Late Contact Info) Description 03/21/2022 Orders Only [facility] Orthopedic Surgery [address] [address] Devin Panda MD [address] [place] [address] Social History Tobacco Use Types Packs/Day Years [...] Description 03/23/2025 3:40 PM EST Minor Procedure/Test [facility] Orthopedic Surgery-Entrance C [address] [place] [address] Gómez Demarco MD [address] [place] [address] AUTH# [id number] documented as of this encounter Results * Due to [place] state law, this organization might not be sharing negative HIV tests. * XRAY SPINE, LUMBOSACRAL 2 OR 3 [...] documented in this encounter Visit Diagnoses Diagnosis Low back pain, unspecified back pain laterality, unspecified chronicity, unspecified whether sciatica present Low back pain, unspecified back pain laterality, unspecified chronicity, unspecified whether sciatica present documented in this encounter Care Teams Men'S Golf Coach Relationship Specialty Start Date End Date Cynthia Fatima [address] [place] [address] PCP - General Internal Medicine 05/21/20 documented as of this encounter
--- OUTSIDE RECORDS SUMMARY | 2025-03-03 11:45 | XMS_ITS | Encounter Summary ---
Author Organization [facility] Address [address] [place] [address] Care Team Providers Care Outpatient Services Director Name Role Phone FatimaCynthia maloney Lester Primary Care Provider [phone] Encounter Details Date Type Department Care Team (Late Contact Info) Description 02/23/2025 Results Follow-Up [facility] Orthopedic Surgery [address] [address] Devin Panda MD [address] [place] [address] MRI LUMBAR SPINE WO CONTRAST Social History Tobacco Use Types Packs/Day Years Used Date Smoking Tobacco: Former Cigarettes Q uit: 09/26/2020 Smokeless Tobacco: Never Alcohol Use Standard Drinks/Week Comments Yes 1 (1 standard drink = 0.6 oz pur e alcohol) Intimate Partner Violence Answer Date R ecorded Fear of Current or Ex-Partner Not on file Emotionally Abused Not on file 12/12/2022 Physically Abused Not on file 12/12/2022 Sexually Abused Not on file 12/12/2022 Feel Safe at Home Not on file 12/12/2022 Comments No Sex and Gender Information Value Date Recorded Sex Assigned at Not on file Legal Sex Female 8:10 AM EST Gender Identity Not on file Sexual Orientation Not on file documented as of this encounter Plan of Treatment Upcoming Encounters Date Type Department Care Team ([facility] Contact Info) Description 03/23/2025 3:40 PM EST Minor Procedure/Test [facility] Orthopedic Surgery-Entrance C [address] [place] [address] Gómez Demarco MD [address] [place] [address] AUTH# [id number] documented as of this encounter Visit Diagnoses Not on filedocumented in this encounter Care Teams Outpatient Services Director Relationship Specialty Start Date End Date Cynthia Fatima [address] [place] [address] PCP - General Internal Medicine 05/21/20 documented as of this encounter
--- OUTSIDE RECORDS SUMMARY | 2025-03-03 11:45 | XMS_ITS | Clinical Summary ---
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 Active Microlet Lancet miscIndications:U ncontrolled type 1 diabetes mellitus with hyperglycemia Use to test 6 times daily. 600 each 3 11/25/19 23 11:46 AM EDT 023 Active blood-glucose meter (Contour Next EZ Meter) miscIndications:U ncontrolled type 1 diabetes mellitus with hyperglycemia Check blood glucose 6 times daily 1 each 11/25/19 23 11:46 AM EDT 023 Active acetaminophen (TYLENOL) 500 mg tablet Take 2 tablets (1,000 mg total) by mouth 3 times a day. 90 tablet 023 Active Additional Information Patient taking differently:1,000 mg oralEvery 6 hours PRN, pain, Reported on 02/09/2025 ondansetron (ZOFRAN ODT) 4 mg disintegrating tablet Dissolve 1 tablet (4 mg total) in the mouth every 8 hours as needed for nausea or vomiting. 30 tablet 1 06/29/19 25 3:15 PM EDT 024 Active sodium fluoride-pot nitrate 1.1-5 % paste [place] teeth once a day, DO NOT rinse for 30 minutes after brushing. 100 mL 11/09/19 12:39 PM EDT 024 Active insulin lispro injection 100 units/mL vialIndications:U ncontrolled type 1 diabetes mellitus with hyperglycemia Use up to 100 units daily via the insulin pump. 90 mL 12/27/19 2:29 PM EDT 024 Active fluorouraciL (EFUDEX) 5% creamIndications: Squamous cell carcinoma in situ (SCCIS) Apply to affected area on L upper arm twice daily for 5-6 weeks, then stop. Redness and irritation expected. Discontinue if active bleeding. 40 g 024 Active TURMERIC ORAL Take by mouth. A ctive calcium carbonate (OS-MOHSEN) 500 mg calcium (1,250 mg) tablet Take 1 tablet by mouth once a day. Active hydroCHLOROthiazi de (HYDRODIURIL) 25 mg tablet Take 1 tablet (25 mg total) by mouth daily. 90 tablet 12/27/19 2:29 PM EDT 025 Active tirzepatide, weight loss, (Zepbound) 5 mg/0.5 mL pen injector pen injectorIndicatio ns:Endogenous obesity Inject 0.5 mL (5 mg total) under the skin every 7 days. 6 mL 12/27/19 2:29 PM EDT 025 2025 Active blood-glucose sensor (Dexcom G7 Sensor) deviceIndications :Type 1 diabetes mellitus with other specified complication Change sensor every 10 days. 9 each 12/27/19 2:29 PM EDT 025 Active Lantus Solostar U-100 Insulin 100 unit/mL (3 mL) pen injectionIndicati ons:Type 1 diabetes mellitus with hyperglycemia Inject 15 units under the skin TWICE DAILY IF NOT USING INSULIN PUMP and changes as directed. Up to Max daily dose of 50 units. 45 mL 3 025 Active NovoLOG Flexpen U-100 Insulin 100 unit/mL (3 mL) injection penIndications:Ty pe 1 diabetes mellitus with hyperglycemia Inject 15 Units under the skin 2 times a day with meals. In case of pump failure. 15 mL 6 Active glucagon (Baqsimi) 3 mg/actuation spray,non-aerosol Indications:Type 1 diabetes mellitus with stable proliferative retinopathy, unspecified laterality,Hypogl ycemia due to type 1 diabetes mellitus Monroe 3 mg (one device) into a single nostril as needed for hypoglycemia; if no response, may repeat in 15 minutes using a new intranasal device. 1 each Active Contour Next Test Strips test stripIndications: Uncontrolled type 1 diabetes mellitus with hyperglycemia Use to test 6 times daily. 600 strip 11 12/27/19 2:29 PM EDT Active losartan (COZAAR) 25 mg tablet Take 1 tablet (25 mg total) by mouth daily. 90 tablet 3 03/01/20 12:59 PM EST Active atorvastatin (LIPITOR) 40 mg tabletIndications :Type 1 diabetes mellitus with complication,Hype rlipidemia, unspecified hyperlipidemia type Take 2 tablets (80 mg total) by mouth once a day. 60 tablet 11 03/01/20 12:59 PM EST 025 2025 Active baclofen (LIORESAL) 10 mg tablet Take 1 tablet (10 mg total) by mouth 2 times a day. 60 tablet 2 02/09/20 9:00 AM EDT Active DULoxetine DR (CYMBALTA) 30 mg capsule Take 1 capsule (30 mg total) by mouth once a day. 90 capsule 3 02/09/20 9:00 AM EDT 025 2025 Active fluoride, sodium, 1.1 % paste Active glucagon 1 mg injection Glucagon Emergency Kit 1 mg solution for injection Active ibuprofen (MOTRIN) 600 mg tablet ibuprofen 600 mg tablet Active gabapentin (NEURONTIN) 600 mg tablet Active insulin lispro U-100 (100 units/mL) insulin pen Humalog KwikPen (U-100) Insulin 100 unit/mL subcutaneous Active gabapentin (NEURONTIN) 300 mg capsule Take 1 capsule (300 mg total) by mouth in the morning and 2 capsules (600 mg total) in the evening. 270 capsule 3 03/01/20 12:59 PM EST Active predniSONE (DELTASONE) 20 mg tablet Take 2 tabs by mouth daily for 5 days 10 tablet 025 2024 Discontinued Active Problems Patient Care Coordination No te Formatting of this note migh t be different from the original. On ilet pump and dexcom - sharing via report.betabionic Problem Noted Date Diagnosed Date Cervicalgia 04/23/2024 Assessment & Plan (04/23/2024 7:56 PM EST): 58 y/o F - with history of cervical spondylosis with myelopathy, s/p ACDF at C4- 5 and C5-6 levels - currently presenting with pain at the back of the neck not radiating to the upper extremities. Her neurologic examination is essentially unchanged. I suspect her pain is myofascial. I advised some neck stretches, heating pads and NSAIDs prn. Neurology follow-up as needed. Pain of right tibia 12/18/2023 Overview (12/18/2023): Patient is status post a direct blow to her lateral right lower leg approximately 5 days ago. She does report some pain with weightbearing which was fairly significant initially but has improved somewhat. She does have a focal area of tenderness on the right lateral proximal tibia as well as the LCL. Assessment & Plan (12/18/2023 8:59 AM EDT): Possible soft tissue injury LCL strain however will obtain an x-ray to rule out a tibial plateau fracture. She may continue icing the area and ibuprofen as needed Gastroesophageal reflux disease without esophagi tis 06/03/2023 Overweight with body mass in dex (BMI) of 27 to 27.9 in adult 01/09/2023 Nontraumatic incomplete tear of left rotator cuf f 07/24/2022 Bilateral carpal tunnel syndrome 06/17/2022 Assessment & Plan (07/03/2022 4:43 PM EDT): The patient is a 56 y/o F with history of severe spinal stenosis with myelomalacia due to spondylotic changes at the C5-6 level. She is s/p ACDF at C4-5 and C5-6. When last seen, she was still having some paresthesias in the hands. EMG showed mild CTS bilaterally as well as chronic C7(C8) radiculopathies. Her last MRI of the c- spine did not show significant abnormality at the C7-T1 level. Her paresthesias are likely due to carpal tunnel syndrome, with possibly some contribution from the myelomalacia seen on MRI. She is already on gabapentin. She will try wrist splints for now. We discussed referral to a hand surgeon if symptoms worsen. Follow-up as needed. Cervical radiculopathy 06/17/2022 Paresthesias 05/21/2022 Assessment & Plan (04/23/2024 7:59 PM EST): She notes worsening of the paresthesias in her fingers. EMG done 10 months ago showed mild bilateral CTS. She has recently seen a hand surgeon and is scheduled for a repeat EMG. Assessment & Plan (05/21/2022 5:16 PM EST): 56 y/o diabetic F, who is s/p ACDF at C4-5 and C5-6, presenting with continued paresthesias in both hands and mild unsteadiness. Examination reveals a (+)Tinel sign on both wrists. Gait seems improved over-all. MRI of the c-spine taken post-operatively shows improvement in canal dimensions at the cervical site. There is persistence of a T2 hyperintensity at the C5-6 level which may be a cause for the continued paresthesias but there is also the possibility that she may have carpal tunnel syndrome. I will have her go for an EMG of the upper extremities to investigate this further. I encouraged her to continue using the treadmill to improve her gait. Osteopenia of spine 04/03/2022 Cervical spondylosis with myelopathy 11/20/2021 Assessment & Plan (11/20/2021 4:33 PM EDT): 55-year-old female presenting with a complaint of unsteady gait. MRI of the cervical spine shows severe canal stenosis with evidence for myelomalacia at the C5-6 level. I went over the MRI results with the patient and showed her some images as well. I explained how this is likely causing her gait imbalance. She will be following up with Dr. Panda. Gait disturbance 10/03/2021 Assessment & Plan (10/03/2021 4:25 PM EDT): The patient is a 55 y/o F presenting with a complaint of unsteady gait. She feels off balance especially when she first gets up from the chair and starts to ambulate. She reports having difficulty with the elliptical when she goes to the gym. She states that her hands can go numb. She had been diagnosed with Type I diabetes when she was in her 30s. Her blood sugars had not been well controlled recently and she has diabetic retinopathy. She has a history of lumbar spinal stenosis and she had lumbar decompression and fusion at L4 to S1 this past March. Review of imaging studies reveals that she also has fairly significant cervical spinal stenosis at the C4- 5 and C5-6 levels. This was seen in an MRI taken in January 2018. Neurologic examination today shows a slightly wide base and tendency to veer from side-side when ambulating. Otherwise, her exam is rather benign. Given the absence of clear weakness, cerebellar signs, and neuropathic findings, my primary consideration is to re-image her cervical spine as worsening stenosis could cause a gait disturbance with some of the symptoms that she reports. MRI of the c-spine is requested. Further recommendations to follow. Slow transit constipation 11/29/2020 Lumbosacral radiculopathy du e to degenerative joint disease of spine 06/07/2020 Proliferative diabetic retin opathy of both eyes with macular edema associated with type 1 diabetes mellitus 01/24/2020 Essential hypertension 07/21/2018 Assessment & Plan (01/19/2024 3:03 PM EDT): Normal blood pressure on losartan therapy. Refractive error 06/29/2018 Cervical spinal stenosis 02/24/2018 Solitary thyroid nodule 08/20/2017 Assessment & Plan (09/21/2024 11:26 AM EDT): Stable 1.4 cm isthmus nodule on ultrasound April 2024 with history of benign biopsy in 2018. Follow-up with thyroid clinic. Assessment & Plan (01/19/2024 3:05 PM EDT): May 08, 2023 ultrasound: Previously biopsied 1.3 cm TI-RADS-4 nodule in isthmus, no significant change in size since 2019. Gastroesophageal reflux disease without esophagi tis 07/09/2017 Overview (07/09/2017): Added automatically from request for surgery [id number] Macular edema, diabetic 05/11/2017 Assessment & Plan (09/21/2024 11:22 AM EDT): Followed by ophthalmology with history of anti-VEGF therapy. Assessment & Plan (01/19/2024 3:03 PM EDT): Followed by ophthalmology for anti-VEGF therapy. NPDR (nonproliferative diabetic retinopathy) Type 1 diabetes mellitus with hyperglycemia 12/12 Assessment & Plan (09/21/2024 11:22 AM EDT): Remains well-controlled on hybrid closed-loop insulin pump therapy. The only change recommended was earlier dosing and meals. She is dosing late when the blood sugar is already high and getting late postprandial hypoglycemia. Assessment & Plan (01/19/2024 3:03 PM EDT): Well-controlled on hybrid closed-loop insulin pump therapy. The only change we made was that she is advised to dose her late evening snack rather than letting the pump automatically cover for it. Type 1 diabetes mellitus wit h severe nonproliferative retinopathy of both eyes and macular edema 06/26/2016 Dyschromia 03/27/2016 Lentigo 04/26/2015 Long-term insulin use 01/10/2015 Hyperlipidemia 06/27/2014 Assessment & Plan (01/19/2024 3:03 PM EDT): Well-controlled LDL on statin therapy. Seborrheic keratosis 05/27/2012 Former tobacco use 09/26/2008 Overview (12/31/2016): 1/3 PACK/DAY X25 YEARS Joint pain 11/04/2007 Fatigue 11/04/2007 Symptomatic menopausal or female climacteric sta shiraz Anxiety Resolved Problems Problem Noted Date Diagnosed Date Resolved Date Insulin pump fitting or adjustment 09/13/2023 05/26/2024 Controlled type 1 diabetes mellitus 09/13/2023 05/26/2024 Uncontrolled type 1 diabetes mellitus with hyperglycemia 07/29/2021 05/26/2024 New daily persistent headache 02/04/2018 11/23/2019 Hypoglycemia due to type 1 diabetes mellitus 8 05/26/2024 Cough 09/30/2016 05/26/2024 Poison marissa dermatitis 12/12/20142019 Encounters Date Type Department Care Team Description 02/24/2025 Orders Only [facility] [address] [place] [phone] Cynthia Rosas MD Vertebrogenic low back pain (Primary Dx) 02/22/2025 Results Follow-Up [facility] [address] [place] [phone] Cynthia Rosas MD 02/20/2025 Orders Only [facility] [address] [address] Devin Panda Spondylolisthesis, lumbar region; Radiculopathy, site unspecified 02/19/2025 Refill [facility] [address] [place] [phone] Cynthia Rosas MD 02/16/2025 Orders Only [facility] [address] [place] [phone] Cynthia Rosas MD Degeneration of intervertebral disc of lumbar region without discogenic back pain or lower extremity pain (Primary Dx); Chronic bilateral low back pain without sciatica 02/15/2025 myChart Message [facility] [address] [place] [phone] Cynthia Rosas MD Non urgent medical question 02/09/2025 2:00 PM EDT Office Visit [facility] [address] [facility] [address] [place] [phone] Erna Silva PA History of nonmelanoma skin cancer (Primary Dx); Seborrheic keratoses; Lentigines; Goyal angioma; Multiple melanocytic nevi; Actinic keratosis 02/07/2025 1:15 PM EDT Office Visit [facility] [address] [place] [phone] Cynthia Rosas MD Chronic bilateral low back pain without sciatica (Primary Dx); Degeneration of intervertebral disc of lumbar region without discogenic back pain or lower extremity pain 01/31/2025 Shopping Mailhart Message [facility] [address] [place] [phone] Cynthia Rosas MD non urgent medical question 01/19/2025 Shopping Mailhart Message [facility] [address] [facility] [address] [place] [address] Erna Silva PA Non urgent medical question 12/22/2024 Refill [facility] [address] [place] [phone] Cynthia Rosas MD Type 1 diabetes mellitus with complication (HCC); Hyperlipidemia, unspecified hyperlipidemia type 12/22/2024 Refill [facility] [address] [place] [phone] Cynthia Rosas MD 12/07/2024 Refill [facility] [address] [place] [phone] Self Rising Flour Mixer: Cory Oliva MD Type 1 diabetes mellitus with stable proliferative retinopathy, unspecified laterality (HCC); Hypoglycemia due to type 1 diabetes mellitus (HCC); Uncontrolled type 1 diabetes mellitus with hyperglycemia (HCC) 12/07/2024 Refill [facility] [address] [place] [phone] Self Rising Flour Mixer: Nicole Osman NP Type 1 diabetes mellitus with hyperglycemia (HCC) from Last 3 Months Immunizations Immunization Administration Dates Next Due Diphtheria and Tetanus Toxoi ds, Adsorbed for Pediatric Use 08/30/1995 Influenza, Injectable, Quadr ivalent, Contains Preservative 01/13/2018 Influenza, Unspecified 01/31/2020 Pneumococcal Polysaccharide Vaccine, 23 Valent 0 06/07/2020 Pneumococcal conjugate PCV20 ,polysaccharide [id number] conjugate, adjuvant, PF (Prevnar 20) 04/03/2022 Tetanus Toxoid, Reduced Diph theria Toxoid, and Acellular Pertussis Vaccine, Adsorbed 09/19/2014 Zoster Vaccine Recombinant 11/29/2020,06/07/2020 Family History Medical History Relation Name Comments Other Father Family history of FHx: malignant neoplasm of trachea, bronchus and lung Diabetes type I Father's Sister Heart disease Mother Other Mother Maternal histor y of Fibromyalgia /Family History of hypertension /Family History of arthritis Diabetes type II Paternal Grandmother Blindness Neg Hx Glaucoma Neg Hx Macular degeneration Neg Hx Relation Name Status Comments Father Father's Sister Mother Alive Paternal Grandmother Social History Tobacco Use Types Packs/Day Years Used Date Smoking Tobacco: Former Cigarettes 23.4 1 - 06/11/2020 Smokeless Tobacco: Never Tobacco Cessation:Counseling Given: Not Answered Comments:: Alcohol Use Standard Drinks/Week Comments Yes 0 (1 standard drink = 0.6 oz pur e alcohol) social [employer] Util[employer] Answer Date Recorded In the past 12 months has e [employer], gas, oil, or water [employer] threatened to shut off services in your [...] Orientation Straight 03/11/2020 12 :10 PM EST Last Filed Vital Signs Vital Sign Reading Time Taken Comments Blood Pressure 140/78 02/07/2025 1:16 PM EDT Pulse 65 02/07/2025 1:16 PM EDT Temperature 36 C (96.8 F) 02/07/2025 1:16 PM EDT Respiratory Rate 18 02/16/2023 9:27 PM EST Oxygen Saturation 99% 02/07/2025 1:16 PM EDT Inhaled Oxygen Concentration - - Weight 63.5 kg (140 lb) 02/07/2025 1:16 PM EDT Height 152.5 cm (5' 0.05 ) 02/07/2025 1:16 PM ED T Body Mass Index 27.3 02/07/2025 1:16 PM EDT Plan of Treatment Upcoming Encounters Date Type Department Care Team (Late st Contact Info) Description 03/08/2025 3:15 PM EST Procedure visit [facility] at [address] [phone] Azar Campos MD [address] [place] [phone] 03/15/2025 8:00 AM EST Office Visit [facility] [address] [place] [address] Jason Tapia MD [address] [place] [address] 03/22/2025 3:00 PM EST Follow-Up [facility] [address] [place] [phone] Cynthia Rosas MD [address] [place] [address] 03/24/2025 8:20 AM EST Office Visit [facility] [address] [place] [address] Self Rising Flour Mixer: Jessica Yip DPM [address] [place] [address] 05/18/2025 4:20 PM EST Follow-Up [facility] [address] [place] [phone] Self Rising Flour Mixer: Kerwin Jacobs MD [address] [place] [phone] 09/20/2025 4:00 PM EDT Office Visit [facility] [address] [place] [address] Self Rising Flour Mixer: Lolita Rodriguez MD [address] [place] [phone] 09/21/2025 3:30 PM EDT Office Visit [facility] [address] [place] [phone] Cynthia Rosas MD [address] [place] [phone] 02/23/2026 2:00 PM EST Office Visit [facility] [address] [facility] [address] [place] [phone] Erna Silva PA [address] [place] [address] Health Maintenance Due Date Last Done Comments HIV Screening 1966 Hepatitis C Screening 1966 Hepatitis B Vaccines (1 of 3 - 19+ 3-dose series) 1985 HPV and Pap Smear 10/07/2016 10/08/2011, , 11/10/2008, Additional history exists COVID-19 Vaccine (4 - 2024-2 6 season) 2024 07/05/2021, 01/02/2021, 12/12/2020 Basic Metabolic Panel 03/01/2025 03/01/2024 , 01/26/2024, 01/19/2024, Additional history exists Urine Microalbumin 03/01/2025 03/01/2024, 1 , 10/05/2019, Additional history exists Hemoglobin A1C 03/23/2025 09/21/2024, 05/14, 01/19/2024, Additional history exists Depression Screening and Follow-Up 09/08/2025 09/08/2024 Social Drivers of Health Joya ual Screening 09/08/2025 09/08/2024 Ophthalmology Exam 11/02/2025 11/02/2024, 0 11/02/2024, 11/02/2024, Additional history exists Cervical Cancer Screening 12/30/2025 Pap Smear 12/30/2025 12/30/2022, 10/12, 10/24/2015, Additional history exists Mammogram 02/14/2026 02/15/2024, 01/11, 01/28/2023, Additional history exists Colonoscopy 01/02/2027 01/02/2022, 09/0 04/2021, 12/12/2021, Additional history exists DTaP,Tdap,and Td Vaccines (4 - Td or Tdap) 11/18/2027 11/17/2017, 09/19/2014, 08/30/1995 Zoster Vaccines Completed 11/29/2020, 06/07/2020 Pneumococcal Vaccine: 50+ Years Completed , 06/07/2020 Alcohol/Substance Use Screening Completed CT Lung Cancer Screening (12 months, previous LungRADS 1 or 2) Discontinued 10/10/2024, 06/19/2023 Influenza Vaccine Completed 01/16/2025, , 01/30/2023, Additional history exists Procedures * Due to [place] [employer] law, this organization might not be sharing negative HIV tests. Procedure Name Priority Date/Time Associated Diagnosis Comments MRI LUMBAR SPINE WO CONTRAST Routine 02/20/2025 6:40 AM EST Spondylolisthesis, lumbar region Radiculopathy, site unspecified CT LUNG CANCER SCREENING 12 MONTHS ANNUAL FOLLOW UP Routine 10/10/2024 7:05 AM EDT Tobacco use POCT GLYCOSYLATED HEMOGLOBIN (HGB A1C) Routine 09/21/2024 10:40 AM EDT MICROALBUMIN, RANDOM URINE WITH CREATININE Routine 03/01/2024 11:31 AM EST Type 1 diabetes mellitus with stable proliferative retinopathy, unspecified laterality COMPREHENSIVE METABOLIC PANEL Routine 03/01/2024 11:31 AM EST Hyperlipidemia, unspecified hyperlipidemia type HM MAMMOGRAPHY, BILATERAL Routine 02/15/2024 2:55 PM EST COLONOSCOPY 12/12/2021 DIABETES EYE EXAM Routine 08/22/2021 HM PAP SMEAR Routine 11/03/2018 PAP W/REFLEX HPV, CONVERSION Routine 10/08/2011 2:24 PM EDT from Last 3 Months or Most Recently Relevant to Health Maintenance Results * Due to [place] [employer] law, this organization might not be sharing negative HIV tests. * MRI Lumbar Spine WO Contrast (02/20/2025 6:40 AM EST) Anatomical Region Laterality Modality Spine, L-spine Magnetic Resonan ce 02/22/2025 9:10 AM EST Impressions 02/22/2025 9:27 AM EST 1. The examination of the lumbar spine [...] this level due to the spinal stenosis. (Cottle) 4. There is a mild central bulging disc at the L4-5 level causing mild compression of the thecal sac and the inferior portion of the neuroforamen. The central spinal canal appears widely patent following performance of the fusion and laminectomy. A(n) Cottle actionable finding has been communicated to the ordering or responsible provider via the [facility] system on 02/22/2025 9:23 AM. Receipt of this communication by the responsible provider will be documented in [facility] upon receiving acknowledgement if applicable, Message ID [id number]. If this radiology report contains a blank impression section, it is an incomplete radiology report. Please contact the interpreting radiologist or applicable radiology division as soon as possible to obtain the completed interpretation. Workstation ID: [id number] Narrative 02/22/2025 9:27 AM EST EXAMINATION: MRI [...] likely due to the severe spinal stenosis. Resulting Agency Comment [id number] Procedure Note Jourdan Novak MD - 02/22/2025 EXAMINATION: MRI of lumbar spine without contrast TECHNIQUE: Multiplanar and multisequence MR imaging of lumbar spine performed withoutintravenous contrast administration. Sequences obtained include, Sagittal plane: T1, T2 and STIR Axial plane: T1 and T2 at selected levels INDICATION: 59-year-old female status post lumbar fusion at the L4-T0umgkx and laminectomy 4 years ago who complains of 3-month history ofprogressive low back pain radiating into the upper buttock region on bothsides. Patient reports difficulty walking longer than 10 minutes. Symptomsalso increase with spinal extension. COMPARISON: Lumbar MR [...] is patent at the level of the fusionand laminectomies. There is reactive marrow signal change [...] disc space with the anterior posterior edge canalmeasuring 3.8 mm. This finding is new since the prior exam from 11/03/2021where the spinal canal measured 10 mm. There is also moderately severecompression of the right neural foramen and moderate compression of theleft neural foramen due to the bulging disc [...] following the performance of fusion and laminectomy. Thesefindings are stable since the previous exam. There is coiling of nerve roots above the L3-4 level likely due to thesevere spinal stenosis. IMPRESSION: 1. The examination of the lumbar spine is somewhat limited due tosusceptibility artifact from fusion hardware. 2. The patient is status post a lower lumbar fusion extending from the C7kjeyx to the S1 level with placement of pedicle screws and rods. Thehardware appears to be in good position without loosening. There is aprevious laminectomy at these levels with wide patency of the centralspinal canal. 3. Compared with the previous exam from 11/03/2021, there has developedsevere spinal stenosis at the L3-4 level due to a 7 mm grade 1anterolisthesis, a moderate central and lateral bulging disc and amoderate superimposed central extruded disc herniation and degenerativechange in the facet joints with the anterior posterior edge canalmeasuring 3.8 mm. Previously, the canal measured 10 mm. There is alsomoderate compression of the left and moderately severe compression of theright neural foramen due to the bulging disc and disc herniation. There iscoiling of nerve roots above this level due to the spinal stenosis.(Cottle) 4. There is a mild central bulging disc at the L4-5 level causing mildcompression of the thecal sac and the inferior portion of theneuroforamen. The central spinal canal appears widely patent followingperformance of the fusion and laminectomy. A(n) Cottle actionable finding has been communicated to the ordering orresponsible provider via the [facility] system on02/22/2025 9:23 AM. Receipt of this communication by the responsibleprovider will be documented in [facility] uponreceiving acknowledgement if applicable, Message ID [id number]. If this radiology report contains a blank impression section, it is anincomplete radiology report. Please contact the interpreting radiologistor applicable radiology division as soon as possible to obtain thecompleted interpretation. Workstation ID: [id number] Devin Panda IM MRI PROCEDURES Final Result * CT Lung Cancer Screening 12 Months Annual Follow Up (10/10/2024 7:05 AM EDT) Anatomical Region Laterality Modality Chest Computed Tomogra phy 10/10/2024 8:07 AM EDT Impressions 10/26/2024 4:34 PM EDT No suspicious pulmonary nodules. Lung-RADS Category 2: Benign Appearance or Behavior Nodules with a very low likelihood of becoming a clinically active cancer due to size or lack of growth Lung-RADS Category Description 2: Findings under this category can include: Perifissural nodule(s) < 10 mm (524 mm3) Solid nodule(s): < 6 mm (< 113 mm3) new < 4 mm (< 34 mm3) Part solid nodule(s): < 6 mm total diameter (< 113 mm3) on baseline screening Non solid nodule(s) (GGN): <30 mm (<86462 mm3) OR > or equal to 30 mm ( > [place] [address] mm3) and unchanged or slowly growing. Category 3 or 4 nodules unchanged for > or equal to 3 months Modifier No clinically significant or potentially significant findings Schedule lung cancer screening CT/follow-up CT:10/11/2025 If this radiology report contains a blank impression section, it is an incomplete radiology report. Please contact the interpreting radiologist or applicable radiology division as soon as possible to obtain the completed interpretation. Workstation ID: [id number] Up-to-date CT equipment and radiation dose reduction techniques were employed. CTDIvol: 4.1 mGy. DLP: 122 mGy-cm. Narrative 10/26/2024 4:[address] LUNG CANCER SCREENING 12 MONTHS ANNUAL FOLLOW UP CLINICAL INFORMATION: tob abuse Z72.0 - I10 - Tobacco use TECHNIQUE: Noncontrast CT was performed. Axial, coronal and sagittal MPRs, axial MIP and coronal MinIP reformations were performed. Note that absence of IV contrast limits sensitivity for mediastinal and abdominal pathology. For radiation dose control at least one of the following techniques was used in this procedure (1) Automated exposure control (2) Adjustment of the mA and/or kV according to patient size (3) Use of iterative reconstruction technique. COMPARISON: 06/19/2023 FINDINGS: LUNGS AND PLEURA: Mild centrilobular emphysema. No suspicious pulmonary nodules. No parenchymal consolidations. Subsegmental atelectasis in both lower lobes and right middle lobe. There are no pleural effusions. MEDIASTINUM: The heart is normal in size. There is no pericardial effusion. There is an mild atherosclerotic calcification of the coronary arteries. NODES: No adenopathy. UPPER ABDOMEN (limited): No adrenal nodules. No focal abnormality in the liver or spleen. BONES AND SOFT TISSUES: Multilevel degenerative change in the spine with severe changes including loss of intervertebral disc in the midthoracic spine, unchanged. No destructive lesions. No soft tissue nodules or masses. Resulting Agency Comment [id number] Procedure Note Fiorella King MD - 10/26/2024 CT LUNG CANCER SCREENING 12 MONTHS ANNUAL FOLLOW UP CLINICAL INFORMATION: tob abuse Z72.0 - I10 - Tobacco use TECHNIQUE: Noncontrast CT was performed. Axial, coronal and sagittalMPRs, axial MIP and coronal MinIP reformations were performed. Note thatabsence of IV contrast limits sensitivity for mediastinal and abdominalpathology. For radiation dose control at least one of the following techniques wasused in this procedure (1) Automated exposure control (2) Adjustment ofthe mA and/or kV according to patient size (3) Use of iterativereconstruction technique. COMPARISON: 06/19/2023 FINDINGS: LUNGS AND PLEURA: Mild centrilobular emphysema. No suspicious pulmonary nodules. Noparenchymal consolidations. Subsegmental atelectasis in both lower lobesand right middle lobe. There are no pleural effusions. MEDIASTINUM: The heart is normal in size. There is no pericardial effusion. There is anmild atherosclerotic calcification of the coronary arteries. NODES: No adenopathy. UPPER ABDOMEN (limited): No adrenal nodules. No focal abnormality in the liver or spleen. BONES AND SOFT TISSUES: Multilevel degenerative change in the spine with severe changes includingloss of intervertebral disc in the midthoracic spine, unchanged. Nodestructive lesions. No soft tissue nodules or masses. IMPRESSION: No suspicious pulmonary nodules. Lung-RADS Category 2: Benign Appearance or Behavior Nodules with a verylow likelihood of becoming a clinically active cancer due to size or lackof growth Lung-RADS Category Description 2: Findings under this category can include: Perifissural nodule(s) < 10 mm (524 mm3) Solid nodule(s): < 6 mm (< 113 mm3) new < 4 mm (< 34 mm3) Part solid nodule(s): < 6 mm total diameter (< 113 mm3) on baseline screening Non solid nodule(s) (GGN): <30 mm (<27143 mm3) OR > or equal to 30 mm ( > [place] to 12845 mm3) and unchanged or slowly growing. Category 3 or 4 nodules unchanged for > or equal to 3 months Modifier No clinically significant or potentially significant findings Schedule lung cancer screening CT/follow-up CT:10/11/2025 If this radiology report contains a blank impression section, it is anincomplete radiology report. Please contact the interpreting radiologistor applicable radiology division as soon as possible to obtain thecompleted interpretation. Workstation ID: [id number] Up-to-date CT equipment and radiation dose reduction techniques wereemployed. CTDIvol: 4.1 mGy. DLP: 122 mGy-cm. us Cynthia Rosas MD IMG CT PROCEDURES Final Result * (ABNORMAL) POCT Glycosylated Hemoglobin (HGB A1C), interfaced (09/21/2024 10:40 AM EDT) Hemoglobin A1C, POCT 6.2(H) <=5.6 % 09/21/2024 2:21 PM EDT [facility], [facility] Comment: A1C Recommendation for Non- Adults with Diabetes: <7.0% ADA 2011 Standards of Medical Care in Diabetes Blood 09/21/2024 10:4 0 AM EDT 09/21/2024 2:21 PM EDT Cory Laura MD LAB POCT ORDERABLES - DEV ICE Final Result [facility], [facility] [address] [place] [address], * Microalbumin, Random Urine with Creatinine (03/01/2024 11:31 AM EST) Creatinine, Random Urine 184 20 - 275 mg/dL 03/01/2024 6:26 PM EST [employer] [facility] Microalbumin 0.8 mg/dL 03/01/2024 6:26 PM EST [employer] [facility] Comment: Reference Range Not established Microalbumin/Crea tinine Ratio, Random Urine 4 <30 mg/g creat 03/01/2024 6:26 PM EST [employer] [facility] Comment: The ADA defines abnormalities in albumin excretion as follows: Albuminuria Category Result (mg/g creatinine) Normal to Mildly increased <30 Moderately increased 30-299 Severely increased > OR = 300 The ADA recommends that at least two of three specimens collected within a 3-6 month period be abnormal before considering a patient to be within a diagnostic category. Urine Urine specimen collection, clean catch / Unknown 03/01/2024 11:31 AM EST 03/01/2024 4:01 PM EST Narrative [facility] - 03/02/2024 4:06 AM EST FASTING:NO Cynthia Rosas MD LAB URINE ORDERABLES Fin al Result [facility] [address] [facility] 3rd Floor, [place] [address], [employer] [facility] [address] [place] [address] * Comprehensive Metabolic Panel (03/01/2024 11:31 AM EST) Glucose 115 65 - 139 mg/dL 03/02/2024 3:49 AM EST [employer] [facility] Comment: Non-fasting reference interval BUN 18 7 - 25 mg/dL 03/02/2024 3:49 AM EST [employer] [facility] [employer] Creatinine 0.63 0.50 - 1.03 mg/dL 03/02/2024 3:49 AM EST [employer] [facility] eGFR 103 > OR = 60 mL/min/1. 73m2 03/02/2024 3:49 AM EST [employer] [facility] [employer] Bun/Creatinine Ratio SEE NOTE: 6 - 22 (calc) 03/02/2024 3:49 AM Sequence Comment: Not Reported: BUN and Creatinine are within reference range. Sodium 139 135 - 146 mmol/L 03/02/2024 3:49 AM EST [employer] [facility] [employer] Potassium 3.6 3.5 - 5.3 mmol/L 03/02/2024 3:49 AM Sequence Chloride 101 98 - 110 mmol/L 03/02/2024 3:49 AM EST [employer] [facility] [employer] Carbon Dioxide 30 20 - 32 mmol/L 03/02/2024 3:49 AM EST [employer] [facility] [employer] Calcium 9.6 8.6 - 10.4 mg/dL 03/02/2024 3:49 AM Sequence Protein, Total 7.1 6.1 - 8.1 g/dL 03/02/2024 3:49 AM Sequence Albumin 4.2 3.6 - 5.1 g/dL 03/02/2024 3:49 AM Sequence Globulin 2.9 1.9 - 3.7 g/dL (calc) 03/02/2024 3:49 AM Sequence Albumin/Globuli n Ratio 1.4 1.0 - 2.5 (calc) 03/02/2024 3:49 AM Sequence Bilirubin, Total 0.4 0.2 - 1.2 mg/dL 03/02/2024 3:49 AM Sequence Alkaline Phosphatase 72 37 - 153 U/L 03/02/2024 3:49 AM EST [employer] [facility] [employer] AST 24 10 - 35 U/L 03/02/2024 3:49 AM Sequence ALT 24 6 - 29 U/L 03/02/2024 3:49 AM Sequence Blood Structure of peripheral vein / Unknown 03/01/2024 11:31 AM EST 03/02/2024 1:53 AM EST Narrative [facility] - 03/02/2024 4:06 AM EST FASTING:NO us Cynthia Rosas MD LAB BLOOD ORDERABLES Fin al Result [facility] [address] [facility] 3rd [address], [place] [address], [place] [phone] [facility] [address] [place] [address] * HM Mammography, Bilateral (02/15/2024 2:55 PM EST) Anatomical Region Laterality Modality Other us Unknown Provider HEALTH MAINTENANCE Final Res ult * COLONOSCOPY (12/12/2021) Narrative Procedure Note Rebecca Lopez MD - 12/12/2021 9:28 AM EDT [facility] Endoscopy - [address] [place] [address] Patient Name: Stacey Vila Procedure Date: 12/12/2021 9:28 AM Date of : 1965 Admit Type: Outpatient Age: 56 Room: [place] [address] Gender: Female Note Status: Finalized Attending MD: Rebecca Lopez MD Procedure: Colonoscopy Indications: Screening for colorectal malignant neoplasm Providers: Rebecca Lopez MD Referring MD: Cynthia Rosas MD (Referring MD) Requesting Provider: Medicines: Monitored Anesthesia Care Complications: No immediate complications. Procedure: Pre-Anesthesia Assessment: - Prior to the procedure, a History and Physical was performed, and patient medications, allergies and sensitivities were reviewed. The patient's tolerance of previous anesthesia was reviewed. - The risks and benefits of the procedure and thesedation options and risks were discussed with the patient. All questions were answered and informed consent wasobtained. - The risks and benefits of the procedure and thesedation options and risks were discussed with the patient. All questions were answered and informed consent wasobtained. - Patient identification and proposed procedure were verified prior to the procedure. - ASA Grade Assessment: II - A patient with mildsystemic disease. After I obtained informed consent, the scope was passed under direct vision. Throughout the procedure, the patient's blood pressure, pulse, and oxygen saturations were monitored continuously. The colonoscope was introduced through the anus and advanced to theterminal ileum, with identification of the appendiceal orificeand IC valve. The patient tolerated the procedure well. The quality of the bowel preparation was good. Findings: External and internal hemorrhoids were found. The hemorrhoids were medium-sized. The exam was otherwise without abnormality. Impression: - External and internal hemorrhoids. - The examination was otherwise normal. - No specimens collected. Recommendation: - Discharge patient to home (ambulatory). - Return to primary care physician as previouslyscheduled. Rebecca Lopez MD 12/12/2021 10:19:44 AM Number of Addenda: 0 Note Initiated On: 12/12/2021 9:28 AM Estimated Blood Loss: Estimated blood loss: none. us Rebecca Lopez MD PROVATION PROCEDURES Final Re sult * HM Eye Exam, Diabetic (08/22/2021) us Unknown Provider HEALTH MAINTENANCE Final Res ult * HM Pap Smear (11/03/2018) us Unknown Provider HEALTH MAINTENANCE Final Res ult * Pap w/Reflex HPV (10/08/2011 2:24 PM EDT) Path Procedure TPGAS ([id number]) 1 Edited by: [id number] LUKAS [facility] ANATOMIC PATHOLOGY - [facility] Specimen Labeled As: 1 CERVICAL/ENDOCERVI MOHSEN CYTO MATERIAL - Edited by: [id number] [facility]ATOM[facility] - [facility] Diagnosis ThinPrep Pap Test Adequacy: Satisfactory for evaluation - no evidence of Transformation Zone sampling Interpretation: Endometrial cells present. Negative for squamous intraepithelial lesion. Remarks/Recommenda tions: This is the result of a morphological screening test with an inherent probability of a false negative interpretation. HPV testing in combination with a morphological Pap test reduces the probability of a serious cervical epithelial abnormality in patients over age 35 and is cost-effective. HPV testing can be useful in other clinical applications. See [place] Journal of Obstetrics and Gynecology 197(4):346-355, 2007. This Pap test was examined in accordance with the [facility] Cytopathology Laboratory written policy. This Pap test was examined by the ThinPrep Imaging System, [facility], [place], [place]. Edited by: [id number] KANDACE [facility] ANATOMIC [facility]OLOGY - [facility] Gynecologic Clinical Data Specimen source:, THINPREP (VAGINAL, CERVICAL AND ENDOCERVICAL) [facility]ATOM[facility]OLOG[facility] - [facility] Gynecologic Clinical Data First date of LMP:, 10/01/11 [facility] Pathology Codes Client Order Code:, [email or web address] [facility] Pathology Codes Bill Type:, 3RD DEMOCRAT BILLING [facility]ATOM[facility] - [facility] Marker 1 ELIZABETHMIRNASHAYNE ARBOLEDA [facility] ANATOMIC PATHOLOGY - [facility] THREE Marker 2 NTZ,NTZ [facility] ANATOMIC PATHOLOGY - [facility] Marker 3 OTHER,Other: (for cytology) [facility]ATOM[facility]OLOG[facility] - [facility] Marker 4 QRT,QC KITTREDGAndreia [facility] ANATOMIC PATHOLOGY - [facility] Cc Results To JULIEN CUNNINGHAM [id number] [facility]AT[facility] - [facility] Signature REPORT SIGNED: CASS MOONEY 10/20/11 [facility] Sign Out Audit CASS MOONEY [id number] FINAL [place] [id number] [facility]ATOM[facility]OLOG[facility] - [facility] Cytology / Unknown 2 2:24 PM EDT 10/09/2011 2:24 PM EDT us Angelica Tate MD LAB HISTORICAL RESULTS Final Result [facility]ATOM[facility]OLOG[facility] - [facility] [address] [place] [phone], from Last 3 Months or Most Recently Relevant to Health Maintenance Insurance [facility] Care Teams Rail Assembler Relationship Specialty Start Date End Date Cynthia Rosas MD [address] [place] [id number] PCP - General Internal Medicine 10/30/16
--- OUTSIDE RECORDS SUMMARY | 2025-03-03 11:45 | XMS_ITS | Encounter Summary ---
Author Organization [facility] Address [address] [place] [address] Care Team Providers Care Geriatric Nursing Assistant Name Role Phone Cynthia Fatima Primary Care Provider [phone] Reason for Referral * Radiology Services (Routine) - New Request Specialty Diagnoses / Procedures Referred By Salazar keane Referred To Contact Magnetic Resonance Imaging Diagnoses Spondylolisthesis of lumbar region Radiculitis Sacroiliac joint dysfunction of right side History of lumbar fusion Procedures MRI LUMBAR SPINE W/O CONTRAST Devin Panda MD [address] [place] [phone] Phone: tel: fax: Referral ID Status Reason Start Date Expiration Date Visits Requested Visits Authorized [id number] New Request Specialty Services Required 1 1 Encounter Details Date Type Department Care Team ([facility] st Contact Info) Description 02/03/2025 Orders Only [facility] Orthopedic Surgery [address] [place] [address] [place] [phone] Devin Panda MD [address] [place] [phone] Social History Tobacco Use Types Packs/Day Years [...] Description 03/23/2025 3:40 PM EST Minor Procedure/Test [facility] Orthopedic Surgery-Entrance [address] [place] [address] Gómez Demarco MD [address] [place] [address] AUTH# [id number] Scheduled Orders Name Type Priority Associated Diagnoses Orde r Schedule MRI LUMBAR SPINE W/O CONTRAST Imaging Routine Spondylolisthesis of lumbar region Radiculitis Sacroiliac joint dysfunction of right side History of lumbar fusion Expected: 02/03/2025, Expires: 02/03/2028 documented as of this encounter Visit Diagnoses Diagnosis Spondylolisthesis of lumbar region Acquired spondylolisthesis Radiculitis Neuralgia, neuritis, and radiculitis, unspecified Sacroiliac joint dysfunction of right side Disorders of sacrum History of lumbar fusion documented in this encounter Care Teams Geriatric Nursing Assistant Relationship Specialty Start Date End Date Cynthia Fatima [address] [place] [address] PCP - General Internal Medicine 05/21/20 documented as of this encounter
== END 2025-03-03 12:06 | disposition home or self-care (01) ==
LOC: HO.HNS 10:52
PROVIDERS: Visit Provider Physician Assistant
DX: M43.16 Spondylolisthesis, lumbar region (principal)
CPT/HCPCS: 99213

== ENCOUNTER 2025-03-03 10:51 | Outpatient (REF) | payer BC, SELFPAY ==
--- NOTE | ~2025-03-03 | XR_ITS ---
EXAMINATION: XR LUMBAR SPINE 4 OR MORE VIEWS HISTORY: M43.16 - Spondylolisthesis, lumbar region COMPARISON: There are no prior studies for comparison. FINDINGS: AP, and neutral, flexion, and extension lateral views of the lumbar spine are submitted. Osseous mineralization is normal. There is mild leftward curvature. The patient is status post posterior fusion of L4-S1 with pedicle screws and spinal stabilization rods. The vertebral bodies maintain normal height. There is grade I spondylolisthesis of L3 on L4 measuring approximately 9 mm, without significant change with flexion or extension. There is severe degenerative disc disease at this level. The visualized paraspinal soft tissues are unremarkable. XR/XR lumbar spine 4V min IMPRESSION: 1. Status post posterior fusion of L4-S1. 2. Grade I spondylolisthesis of L4 on L5 without significant change with flexion or extension. 3. Severe degenerative disc disease at L3-4. Electronically signed by: Phuc Mack MD 03/03/2025 11:59 AM JAMILAH
--- OUTSIDE RECORDS SUMMARY | 2025-03-03 12:21 | XMS_ITS | Data Portability ---
Author Organization [place] - [facility], [facility] Address [address] [place] [address] Care Team Providers Care Optic Fibre Drawer Name Role Phone JAYDON VICTORIA Requirements Analyst SEVEN MARIANO Primary Care Provider Assessment No assessment recorded. Plan of Treatment Reminders Order Date Submit Date Provider Last Modified By Organization Details Last Modified Time Details Appointments MAMMOGRA M 20 2024 09:00A M [facility] MAMMOGRAM Not available Not available Not available NEW YEARLY 30 2024 09:30A M Sumaya Baldwin MD Not available Not available Not available Lab surgical patholog y study 2022 023 [facility], [address] [place] [address], [id number] 01/29/2023 16:55:00 pap, IG + HPV - brush and spatula used to collect specimen / Abnormal Pap: Yes 2009 ASCUS, HPV negative 2021 022 [facility], [address] [place] [address], [id number] 01/16/2022 11:22:25 Referral None recorded . Procedures None recorded . Surgeries None recorded . Imaging None recorded . Medication Orders None recorded . Patient TargetsNo targets recorded. 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 Not available 02/15/2024 11:12:14 Reason for Referral None Reported. Results Created Date Observation Date Name Description Value Unit Range Abnormal Flag Note LastModifiedBy Organization Detail LastModifiedTime 01/11/20 22 01/10/2022 THINP REP PAP TEST (IMAG ER), HPV SCREE N, REFLE X HPV 16,18 /45 report Report Final Gynec ologi robby Cytol ogy Repor t ----- ----- ----- ----- ----- ----- ----- ----- ----- ----- ----- ----- ThinP rep Pap Test, HPV Scree n, Refle x HPV Genot ype SPECI MEN ADEQU ACY: SATIS FACTO RY FOR EVALU ATION . INTER PRETA TION: NEGAT CARLOS FOR INTRA EPITH PATY Mcmillan OR KACIE ABREU . Elect hollie Martinez d: Wanda Gustafson, [place] (ASCP ) ----- ----- ----- ----- ----- ----- ----- ----- ----- ----- ----- ----- CLINI ROBBY INFOR MONA N: LMP: NG Clini robby Histo ry: PM Biops y Date: NG Speci men [facility] e: Cervi x, Endoc ervix Previ ous Pap Date: 11/03 HPV RESUL TS: HPV mRNA E6/E7 [id number] Appro parvin: 01/14 Negat carlos REF RANGE : Negat carlos CPT Codes : 62961 ICD Codes : Z01.4 19 Not Available [facility] [address] [place], [address] 01/16/2022 11:22:25 01/11/20 22 01/10/2022 HPV MRNA E6/E7 HPV MRNA E6/E7 Negati ve negati ve APTIM A HPV assay detec ts 14 high risk HPV types (HPV 16,18 ,31,3 3,35, 39,45 ,51,5 2,56, 58,59 ,66,6 8). The assay is FDA appro parvin for testi ng ThinP rep liqui d Pap vials but not FDA appro parvin for detec ting HPV in SureP ath liqui d Pap speci mens. In-ho use valid ation has shown the assay can detec t all HPV types from this [facility] e Not Available [facility] [address] [place], [address] 01/16/2022 11:22:32 01/29/2001/28/2023 TISSU E report Report Final Patho logy Repor t ----- ----- ----- ----- ----- ----- ----- ----- ----- ----- ----- ----- FINAL DIAGN OSIS: CERVI ROBBY POLYP ECTOM Y: - MUCIN CONTA INING FRAGM ENTS OF UNREM ARKAB LE ENDOC ERVIC AL AND SQUAM OUS EPITH ELIUM , NEGAT CARLOS FOR DYSPL CHUCHO OR NEOPL CHUCHO. - NO INTAC T POLYP IDENT IFIED . Elect hollie Martinez d: Antoinette Luong MD ----- ----- ----- ----- ----- ----- ----- ----- ----- ----- ----- ----- Clini robby Diagn osis and Histo ry: Polyp at cervi robby os Gross Descr iptio n: Conta iner label ed with the patie nt's name MARLA MORALES BLAYNEAndreia noted Cervi robby Polyp . Speci men is recei parvin in forma misty and consi sts of irreg ular tissu e fragm ents admix ed with mucus and blood measu ring 0.13 cc which are filte red and submi tted in toto in 1 casse tte(s ) label ed 1A. CPT Codes : 04561 ICD Codes : N84.1 Not Available [facility] [address] [place], [address] 01/29/2023 16:55:00 01/04/20 21 01/02/2021 imagi ng/di agnos tic resul t No observ ation record ed. [email or web address] Not Available 2020 14:15:19 09/23/01/02/2021 MAMMO , scree chris, tomos ynthe sis, bilat eral, w/ CAD No observ ation record ed. Not Available 2020 14:27:20 01/14/20 22 01/10/2022 imagi ng/di agnos tic resul t No observ ation record ed. [email or web address] Not Available 2021 09:43:10 01/14/2001/10/2022 MAMMO , scree chris, tomos ynthe sis, bilat eral, w/ CAD No observ ation record ed. Not Available 2021 10:02:12 01/16/2001/14/2022 imagi ng/di agnos tic resul t No observ ation record ed. [email or web address] Not Available 2021 14:03:58 01/16/2001/14/2022 MAMMO , diagn ostic , tomos ynthe sis, unila teral , w/ CAD No observ ation record ed. Not Available 2021 14:11:41 01/30/20 23 01/28/2023 imagi ng/di agnos tic resul t No observ ation record ed. [email or web address] Not Available 2022 14:16:37 01/30/2001/28/2023 MAMMO , scree chris, tomos ynthe sis, bilat eral, w/ CAD No observ ation record ed. Not Available 2022 09:31:50 02/16/20 24 02/15/2024 imagi ng/di agnos tic resul t No observ ation record ed. [email or web address] Not Available 2023 13:33:44 02/16/20 24 02/15/2024 MAMMO , scree chris, tomos ynthe sis, bilat eral, w/ CAD No observ ation record ed. Not Available 2023 09:01:57 Result Notes None recorded. Problems Name Problem SNOMED Code Status Onset Date Resolution Date Notes Provider Name and Address Organization Details Recorded Time Body mass index 25-29 - overweigh t 424828837 Active 2018 Body mass index (BMI) of 25.0-25.9 in adult; W/U Status: confirmed Not Available [facility] 0 16:47:02 Diabetes mellitus 11502669 Active 2020 Scarlett Mckeonvall samantha null, [facility] 1 11:14:33 Hypertens carlos disorder 91683033 Active 2020 Scarlett Woodsonaravall samantha null, [facility] 1 11:14:40 Hyperlipi demia 44563956 Active 2020 Scarlett Mckeonvall samantha null, [facility] 1 11:14:47 Cervical spondylos is 873782170 Active 2020 Scarlett Mckeel samantha null, [facility] 1 10:08:35 Spinal injury 959216363 Active 2021 Scarlett Mckeel samantha null, [facility] 2 10:17:10 Rupture of rotator cuff of shoulder 612594678 Active 2022 left Jaydon Victoria MD [address], [address] , [facility] 3 09:21:06 Insulin pump present 014350065 Active 2023 Jaydon Victoria MD [address] [place] [address], [phone] , [facility] 4 09:08:23 Problem Notes None recorded. Procedures Surgical History Date Name Laterality Status Provider Name and Address Organization Details Recorded Time 024 repair of musculotendinous cuff of shoulder completed Jaydon Victoria MD [address], [address], [facility] 02/15/2024 11:10:39 023 Cervical Polypectomy Procedure Note completed Jaydon Victoria MD 175 [facility], [address] [place] [address], [place], [address], [facility] 01/28/2023 09:17:41 023 Date of Last [facility]ammogram [facility]/12/2024 13:14:41 023 repair of musculotendinous cuff of shoulder completed Jaydon Victoria MD 175 [facility], [address] [place] [address], [phone], [facility] 01/28/2023 09:06:50 022 Date of Last Pap Smear [facility] 01/23/2023 14:07:01 022 Date of Last Colonoscopy [facility] 01/10/2022 10:17:58 021 operation on lumbar spine completed Jaydon Victoria MD 175 [facility], [address] [place] [address], [phone], [facility] 01/10/2022 10:28:49 removal of thyroid nodule completed Not Available [facility] 01/10/2022 07:58:51 surgical procedure on cervical spine completed Jaydon Victoria MD 175 [facility], [address] [place] [address], [phone], [facility] 01/10/2022 10:29:42 Imaging Results None recorded. Procedure Notes None recorded. Medical Equipment None Reported. Allergies Allergen ID Allergen Name Allergen Category Reaction Reaction Severity Criticality Documentation Date Start Date Code Code System Note Provider Name and Address Organization Details Recorded Time 0807128 Bactrim medicatio n hives Not available Not available 01/09/2020 45880 9 RxNorm React ion: Hives ; Comme nt: Type: Aller gy; Not Available [facility] 0 15:13:37 6147334 sulfameth oxazole / trimethop rim medicatio n hives Not available Not available 09/17/2020 21282 RxNorm React ion: Hives ; Comme nt: Type: Aller gy; Not Available [facility] 08:50:13 3561347 haloperid ol medicatio n itching Not available Not available 03/03/20252022 5093 RxNorm Not Available perri - External Data Service - prod 5 11:01:05 9052967 sulfameth oxazole medicatio n rash Not available [facility] 03/03/20252021 00575 RxNorm Not Available perri - External Data Service - prod 5 11:01:05 0154762 trimethop rim medicatio n rash Not available [facility] 03/03/20252021 22715 RxNorm Not Available perri - External Data Service - prod 5 11:01:05 1044618 bupropion hydrochlo ride medicatio n Not available Not available Not available 03/03/2025201920 4 RxNorm unrec ogniz ed react ion (text : Trevon trimble, code: 03718 005) (from exter nal sourc e) Not Available perri - External Data Service - prod 5 11:01:05 3038653 Substance with sulfonami de structure and antibacte rial mechanism of action (substanc e) medicatio n rash Not available Not available 03/03/2025 18098 8003 SNOMED Not Available perri - External Data Service - prod 5 11:01:24 Medications Name Sig Start Date Stop Date Status Note LastModified by Organization Details LastModified Time on/go covid-19 antigen self-test kit 01/28 completed Not Available Not Available Not Available 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 kit 01/28 completed Not Available Not Available Not Available covid-19 at-home test kit kit 01/10 completed Not Available Not Available Not Available amoxicillin 500 mg capsule 01/10 completed Not Available Not Available Not Available atorvastati n 40 mg tablet active Not Available Not Available Not Available gabapentin 600 mg tablet active Not Available Not Available Not Available atorvastati n 20 mg tablet 01/02 completed Not Available Not Available Not Available atorvastati n mg tablet 01/02 completed Not Available Not Available Not Available Glucagon Emergency Kit 1 mg solution for injection active Not Available Not Available No t Available fluorouraci l 5 % topical cream 01/28 completed Not Available Not Available Not Available tramadol 50 mg tablet 01/10 completed Not Available Not Available Not Available nortriptyli ne 25 mg capsule 02/14 completed Not Available Not Available Not Available erythromyci n 5 mg/gram (0.5 %) eye ointment 01/10 completed Not Available Not Available Not Available neomycin-po lymyxin-dex ameth 3.5 mg/mL-10,00 0 unit/mL-0.1 % eye drops active Not Available Not Available Not Available lidocaine 5 % topical patch 01/02 completed Not Available Not Available Not Available losartan 25 mg tablet active Not Available Not Available No t Available hydrocodone -homatropin e 5 mg-1.5 mg/5 mL oral solution 01/02 completed Not Available Not Available Not Available gabapentin 300 mg capsule 02/14 completed Not Available Not Available Not Available ranitidine 150 mg capsule 01/02 completed Not Available Not Available Not Available hydrochloro thiazide 25 mg tablet active Not Available Not Available No t Available diclofenac sodium 50 mg tablet,marco yed release 01/02 completed Not Available Not Available Not Available gabapentin 100 mg capsule 01/10 completed Not Available Not Available Not Available insulin lispro (U-100) 100 unit/mL subcutaneou s solution active Not Available Not Available N ot Available diazepam 10 mg tablet 01/02 completed Not Available Not Available Not Available ibuprofen 600 mg tablet active Not Available Not Available Not Available methylpredn isolone 4 mg tablets in a dose pack TAKE 1 KIT DIRECTED ON PACKAGE 01/10 completed Not Available Not Available Not Available ondansetron 4 mg disintegrat ing tablet TAKE 1 TABLET (4 MG) BY ORAL ROUTE EVERY 8 HOURS NEEDED FOR NAUSEA/VO MITING active Not Available Not Available No t Available Microlet Lancet active Not Available Not Available Not Available Ventolin HFA 90 mcg/actuati on aerosol inhaler 01/02 completed Not Available Not Available Not Available oxycodone 5 mg tablet TAKE 1 TABLET EVERY 4-6 HOURS BY ORAL ROUTE NEEDED, FOR PAIN. 02/14 completed Not Available Not Available Not Available Novolog FlexPen U-100 Insulin aspart 100 unit/mL (3 mL) subcutaneou s active Not Available Not Available Not Available bupropion HCl XL 150 mg 24 hr tablet, extended release 01/02 completed Not Available Not Available Not Available Prempro 0.3 mg-1.5 mg tablet active Not Available Not Available Not Available duloxetine 20 mg capsule,del ayed release active Not Available Not Available Not Available chlorhexidi ne gluconate 0.12 % mouthwash 01/10 completed Not Available Not Available Not Available sodium fluoride 1.1 % dental paste active Not Available Not Available Not Available PreviDent 5000 Sensitive 1.1 %-5 % dental paste active Not Available Not Available Not Available peg 3350-electr olytes 236 gram-22.74 gram-6.74 gram-5.86 gram solution 01/28 completed Not Available Not Available Not Available Lantus Solostar U-100 Insulin 100 unit/mL (3 mL) subcutaneou s pen active Not Available Not Available Not Available Humalog KwikPen (U-100) Insulin 100 unit/mL subcutaneou s 02/14 completed Not Available Not Available Not Available Chantix Continuing Month Box 1 mg tablet 01/02 completed Not Available Not Available Not Available Contour Next Test Strips active Not Available Not Available Not Available Contour Next EZ Meter active Not Available Not Available Not Available Tresiba FlexTouch U-100 insulin 100 unit/mL (3 mL) subcutaneou s pen 01/10 completed Not Available Not Available Not Available OneTouch Delica Plus Lancet 33 gauge active Not Available Not Available Not Available Baqsimi 3 mg/actuatio n nasal spray active Not Available Not Available Not Available Wegovy 0.25 mg/0.5 mL subcutaneou s pen injector 02/14 completed Not Available Not Available Not Available Wegovy 0.5 mg/0.5 mL subcutaneou s pen injector 02/14 completed Not Available Not Available Not Available Vitals Date Recorded Body weight Body mass index (BMI) Body height Systolic And Diastolic Provider Name and Address Organization Details Last Updated DateTime 01/02/2021 36165.89 g 27.4 kg/m2 154.94 cm 120/60 mm[Hg] Scarlett Rodríguez [facility] 01/02/2021 10:06:49 Date Recorded Body height Body mass index (BMI) Body weight Systolic And Diastolic Provider Name and Address Organization Details Last Updated DateTime 01/10/2022 154.94 cm 27.8 kg/m2 12477.08 g 120/70 mm[Hg] Scarlett Montesdoc [facility] 01/10/2022 10:14:48 Date Recorded Body height Body mass index (BMI) Body weight Systolic And Diastolic Provider Name and Address Organization Details Last Updated DateTime 01/28/2023 154.94 cm 26.6 kg/m2 38843.52 g 120/70 mm[Hg] Scarlett Montesdoc [facility] 01/28/2023 09:00:27 Date Recorded Body height Body mass index (BMI) Body weight Systolic And Diastolic Provider Name and Address Organization Details Last Updated DateTime 02/15/2024 154.94 cm 28.3 kg/m2 55136.86 g 120/72 mm[Hg] Scarlett Rodríguez [facility] 02/15/2024 08:57:50 Social History Question Answer Notes LastModified by Organizat ion Details LastModified Time Tobacco Smoking Status Former Smoker Quit in anticipation of back surgery 03/2021 Jaydon Victoria MD [address] [place] [address], [place], [address] 01/10/2022 10:28:02 In The 14 Days Before Symptom Onset, Have You Had Close Contact With A Laboratory-confi rmed COVID-19 While That Case Was Ill? No Information not available 12/25/2020 In The 14 Days Before Symptom Onset, Have You Had Close Contact With A Person Who Is Under Investigation For COVID-19 While That Person Was Ill? No Information not available 12/25/2020 Have You Been To An Area Known To Be High Risk For COVID-19? No Information not available 12/25/2020 Do You Reside In Or Have You Traveled To An Area Where Ebola Virus Transmission Is Active? No Information not available 12/25/2020 What Is The Highest Grade Or Level Of School You Have Completed Or The Highest Degree You Have Received? [id number] Information not available 01/02/2021 Have You Recently Or Are You Planning To Travel To An Area With Zika Virus? No Information not available 12/25/2020 Do You Have Any Children? Yes Information not available 12/25/2020 Does Your Partner Physically Hurt You Or Threaten To Hurt You? No Information not available 01/02/2021 Has Your Partner Forced You To Have Sex Or Perform Sex Acts When You Did Not Want To? No Information not available 01/02/2021 Does Your Partner Insult, Scream At Or Talk Down To You? No Information not available 01/02/2021 Does Your Partner Control You Or Any Part Of Your Life? No Information not available 01/02/2021 Are You Afraid Of Your Partner? No Information not available 01/02/2021 Drug Use? No Informatio n not available 12/25/2020 Do You Feel Safe At Home? Yes Information not available 01/02/2021 How Many Children Do You Have? 2 Information not available 12/25/2020 Do You Use Protection During Sex? No Information not available 12/25/2020 Are You Sexually Active? Yes , Age 68, Diabetes 2015 On Oral Agent; Retired 2020 Information not available 02/15/2024 Have You Recently Traveled Abroad? No Information not available 12/25/2020 Sex: Female Functional Status Question Answer Note LastModified by Organizat ion Details LastModified Time What is your level of alcohol consumption? Occasional Information not available 12/25/2020 Are you currently employed? Yes Information not available 12/25/2020 What is your occupation? [employer]; FT Information not available 01/09/2022 What is your exercise level? Moderate Weight training, Cardio, dog-walkin g x 2 Information not available 01/10/2022 Mental Status None recorded. Family History Relationship Description Onset Age of this Age Resolved Age Notes LastModified by Organization Details LastModified Time Mother Family history of Mother alive and well age 80, arthri tis, moved to an [facility] 2020 Not available 02/15/2024 09:09:13 Mother Malignant melanoma pt. added direct ly (01/25) API-13 Not available 01/25/2023 14:02:30 Father Father 71 lung cancer , divorc ed ( 4) [email or web address] Not available 02/15/2024 08:50:52 Brother Family history of Brother alive with problem age 54, alcoho l depend ency, no contac t Not available 02/15/2024 11:10:09 Daughter Family history of Daughter alive and well [email or web address] Not available 02/14 08:50:52 Son Family history of Son alive and well [email or web address] Not available 02/14 08:50:52 Medical History Condition Response Other N *No Diseases or Conditions N Breast Cancer N Blood clots N Benign breast disease N Colon cancer N Depression N Lung Disease N Defects or Inherited Disease N Anesthesia Complications N BrCa gene tested? N Headaches/Migraines N Have you ever been on isolation N Anxiety Disorder N HSV N Arthritis N Infertility N Abnormal pap N Interstitial Cystitis N Acid Reflux (GERD) N Cancer N Stroke N Endometriosis N Fibromyalgia N Spina Bifida N HIV N Heart Problems N Sexual Dysfunction N Autoimmune disorder N Thyroid Problems N Kidney or Bladder Problems N GI Problems N Eating Disorder N Anemia N Multiple Sclerosis N Psychiatric Illness N Ovarian Cancer N Diabetes Y Blood Transfusions N Bladder disease N History of MRSA N Abnormal Uterine Bleeding N Hyperlipidemia Y BrCa positive N Diverticulitis N Abuse/Domestic Violence N Asthma N Hepatitis N Hypertension Y Osteoporosis N Thrombophilias N Gynecological History Statement/Question Response Abnormal Pap Yes Date of Last Mammogram 01/28/2023 Date of LMP 10/31/2019 IPV Screen Done 02/15/2024 [facility] Biopsy N Leep N Post Menopausal Bleeding N STIs/STDs N Sexual Orientation heterosexual HPV Vaccine N Current Control Method Menopause Date of Last Colonoscopy 12/12/2021 Sexually Active? Y Date of Last Pap Smear 01/10/2022 Last HPV Result Negative Hormone Replacement Therapy N Obstetrics History GPAL:G 2 P 2 0 0 2 Type Value Full Term 2 Living 2 Total 2 Immunizations Vaccine Type Date Status Note Provider Nam e and Address Organization Details Recorded Time COVID-19, mRNA, LNP-S, PF, 30 mcg/0.3 mL dose 1 completed Scarlett Chiaravalloti null, [facility] 01/23/2023 14:06:38 COVID-19, mRNA, LNP-S, PF, 30 mcg/0.3 mL dose, adri-sucrose 2 completed Scarlett Chintanaravalloti null, [facility] 01/23/2023 14:06:38 Influenza, split virus, quadrivalent, PF 1 completed Scarlett Chintanaravalloti null, [facility] 01/23/2023 14:06:38 Influenza, MDCK, quadrivalent, PF 2 completed Scarlett Chiaravalloti null, [facility] 01/28/2023 08:56:49 Pneumococcal conjugate PCV20, polysaccharide IFU134 conjugate, adjuvant, PF 2 completed Scarlett Chiaravalloti null, [facility] 01/28/2023 08:56:49 pneumococcal polysaccharide PPV23 1 completed Scarlett Mckeonvalloti null, [facility] 01/02/2021 10:04:50 zoster recombinant 1 completed Scarlett Woodsonaravalloti null, [facility] 01/02/2021 10:04:50 Td (adult), 5 Lf tetanus toxoid, preservative free, adsorbed 8 completed Scarlett Lindavalloti null, [facility] 01/02/2021 10:04:50 influenza, unspecified formulation 0 completed Scarlett Mckeonvalloti null, [facility] 01/02/2021 10:04:50 COVID-19, mRNA, LNP-S, PF, 30 mcg/0.3 mL dose 1 completed Scarlett Rodríguez null, [place] - [facility] 01/02/2021 10:04:50 zoster recombinant 1 completed Scarlett Mckeonmiguel null, [place] - [facility] 01/02/2021 10:04:50 Past Encounters Encounter ID Performer Location Encounter Start Date Encounter Closed Date Diagnosis/Indication Diagnosis SNOMED-CT Code Diagnosis ICD10 Code Diagnosis IMO Codes Diagnosis Note [id number] Jaydon Victoria MD [address] [address] 01/02/2021 09:49:25 01/02/2021 10:35:41 Gynecologic examination 15191582 Z01.419 Normal pelvic exam. Recommend return for annual oracle soa consultant exam in one year. Body mass index 25-29 - overweight 252311430 Z68.27 Recommende d eating a healthy diet and engaging in daily exercise. [id number] Jaydon Victoria MD [address] [address] 01/10/2022 09:46:30 01/10/2022 10:51:56 Gynecologic examination 56412085 Z01.419 Normal pelvic exam. Mammo today. Recommend return for annual oracle soa consultant exam in one year. Body mass index 25-29 - overweight 319477253 Z68.27 [id number] Jaydon Victoria MD [facility] [address] [address] 01/28/2023 08:27:28 01/28/2023 09:39:37 Gynecologic examination 44794105 Z01.419 Normal pelvic exam. Mammo today. Recommend return for annual oracle soa consultant exam in one year. Body mass index 25-29 - overweight 664335683 Z68.26 Diet & exercise. Polyp at cervical os 248 525461 N84.1 [id number] Jaydon Victoria MD [facility] [address] [address] 02/15/2024 08:31:11 02/15/2024 09:27:44 Gynecologic examination 25152060 Z01.419 Normal pelvic exam. Normal Pap 2021. Mammo today. Recommend return for annual oracle soa consultant exam in one year. Body mass index 25-29 - overweight 914334190 Z68.28 Diet & exercise. Health Concerns Section Related Observation LastModified by Organization Detai ls LastModified Time None Recorded Concern Status LastModified by Organization Details LastModified Time None Recorded Advance Directives Directive None Recorded Payers Insurance Date Sequence Insurance Name Policy Number Policy Neal Covered Member ID Neal Member ID Guarantor Name 02/16/2024 [facility] [place] [id number] Stacey Morales [id number] Stacey Morales 01/10/2022 1 [facility] [place] [id number] Frederick Morales [id number] Stacey Morales Notes Date Note Type Note Provider Name and Address Organization Details Recorded Time 01/02/2021 text/html feels well, no gynecologic complaints; quit smoking, started the Covid-19 vaccine Jaydon Victoria MD [address], [phone], [facility] 01/02/2021 10:43:01 01/10/2022 text/html feels well, no gynecologic complaints Jaydon Victoria MD [address], [phone], [facility] 01/11/2022 13:30:21 01/28/2023 text/html feels well, no gynecologic complaints; was prescribed HRT by PCP but doesn't really take it now; on medical leave from work as she recovers from her rotator cuff surgery Jaydon Victoria MD [address], [phone], [facility] 01/28/2023 16:57:30 02/15/2024 text/html 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 feels well, no gynecologic complaints; recovering from her recent left rotator cuff surgery Jaydon Victoria MD [address], [phone], [place] [facility] 02/15/2024 11:12:57 OBGyn Episode Ob Episode Information Episode Created Date Number of Fetuses Patient Bloodtype Patient rh Status Prepregnancy Weight lbs Domestic Partner Domestic Partner Phone Father Name Flap Curer Status 12/26/19 21 1 CLOSED Fetus Data First Name Last Name Admitted to NICU Weight (g) Sex Living Outcome Pediatric Complications Fetus ID Race Codes Race Delivery Type M Full Term [id number] Vaginal Delivery Hector Calculation Initial Hector Date Initial Exam Date Initial Exam Provider Initial Ultrasound Date Last Menstrual Period Date Ultra Sound Weeks Gestation 0 Eighteen To Twenty Week Hector Update Ultra Sound Date Fundal Height At Umbil Quickening Date Ultra Sound Latest Weeks Gestation Final Hector Confirmed By Final Hector Confirmed Date Final Hector Date Ultra Sound Latest Days Gestation 0 0 Menstrual History Last Menstrual Date Menses Monthly On Bcp Conception Prior Menses Frequency Hcg Plus Date Menarche Onset Age Delivery Information Delivery Date Delivery Type Labor Anesthesia Weeks Gestation Incision Type Labor Labor Length Hrs Delivered By Post Complications Tubal Sterilization Discharge Date Comments 8 Dr. Gregorio mcmillan delivered Discharge Information Feeding Method Contraceptive Method Maternal HG B and HCT Levels Ob Episode Information Episode Created Date Number of Fetuses Patient Bloodtype Patient rh Status Prepregnancy Weight lbs Domestic Partner Domestic Partner Phone Father Name Flap Curer Status 12/26/19 21 1 CLOSED Fetus Data First Name Last Name Admitted to NICU Weight (g) Sex Living Outcome Pediatric Complications Fetus ID Race Codes Race Delivery Type F Full Term [id number] Vaginal Delivery Hector Calculation Initial Hector Date Initial Exam Date Initial Exam Provider Initial Ultrasound Date Last Menstrual Period Date Ultra Sound Weeks Gestation 0 Eighteen To Twenty Week Hector Update Ultra Sound Date Fundal Height At Umbil Quickening Date Ultra Sound Latest Weeks Gestation Final Hector Confirmed By Final Hector Confirmed Date Final Hector Date Ultra Sound Latest Days Gestation 0 0 Menstrual History Last Menstrual Date Menses Monthly On Bcp Conception Prior Menses Frequency Hcg Plus Date Menarche Onset Age Delivery Information Delivery Date Delivery Type Labor Anesthesia Weeks Gestation Incision Type Labor Labor Length Hrs Delivered By Post Complications Tubal Sterilization Discharge Date Comments 5 Dr. Reece delivered Discharge Information Feeding Method Contraceptive Method Maternal HG B and HCT Levels
--- OUTSIDE RECORDS SUMMARY | 2025-03-03 12:21 | XMS_ITS | Clinical Summary ---
Author Organization [facility] Address [address] [address] Phone Care Team Providers Care Professor Of Psychiatry Name Role Phone Cynthai Rosas MD Primary Care Provider + Allergies Active Allergy Reactions Criticality Noted Date Comments Sulfamethoxazole-Trimethoprim 2017 Medications atorvastatin (LIPITOR) 10 MG tablet Take 10 mg by mouth daily. Active losartan (COZAAR) 25 MG tablet Take 25 mg by mouth daily. Active insulin glargine (LANTUS) 100 unit/mL injection vial Inject under the skin nightly at bedtime. Active insulin lispro (HUMALOG PEN SUBQ) Inject under the skin. Active vitamins A,C,E-zinc-dario er (PRESERVISION AREDS) [id number] [id number]-cw-esqc Cap Take 1 capsule by mouth daily. Active gabapentin (NEURONTIN) 300 MG capsule Take 300 mg by mouth. 07/09/2020 Active traMADoL (ULTRAM) 50 mg tablet Take 50 mg by mouth. 08/06/2020 Active varenicline (CHANTIX) 1 mg tablet Take 1 tablet (1 mg total) by mouth 2 times a day. Take after eating with a full glass of water. 09/17/2020 Active hydroCHLOROthia zide (HYDRODIURIL) 25 MG tablet 07/29/2021 Active erythromycin (ROMYCIN) ophthalmic ointment Place 0.5 inches into the right eye nightly at bedtime. 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 associated with type 2 diabetes mellitus 08/10/2017 Severe nonproliferative diab etic retinopathy of left eye, without macular edema, associated with type 1 diabetes mellitus 07/15/2017 Family History Medical History Relation Comments Cataracts Unspecified 1 Diabetes Unspecified 2 Relation Status Comments Unspecified 1 Unspecified 2 Social History Tobacco Use Types Packs/Day Years Used Date Smoking Tobacco: Every Day Cigarettes Smokeless Tobacco: Never Comments:1-2 cigarettes marv y Alcohol Use Standard Drinks/Week Comments Yes 1 (1 standard drink = 0.6 oz pur e alcohol) 1 glass a week Education Answer Date Recorded Are you interested in more education? Not on [place] e 08/08/2022 Are you concerned about learning? Not on file 08/08/2022 No 08/08/2022 No 08/08/2022 Digital Access Answer Date Recorded No 09/09/2022 No 09/09/2022 No 09/09/2022 Reliable internet access at home? Not on file 09/09/2022 Device with a working camera? Not on file Comments Unknown Sex and Gender Information Value Date Recorded Sex Assigned at Not on file Legal Sex Female 2:11 PM EST Gender Identity Not on file Sexual Orientation Not on file Last Filed Vital Signs Vital Sign Reading Time Taken Comments Blood Pressure 136/83 08/10/2017 10:22 AM EDT Pulse 64 08/10/2017 10:22 AM EDT Temperature - - Respiratory Rate 14 08/10/2017 10:22 AM EDT Oxygen Saturation 99% 08/10/2017 10:22 AM EDT Inhaled Oxygen Concentration - - Weight - - Height - - Body Mass Index - - Plan of Treatment Health Maintenance Due Date Last Done Comments BLOOD PRESSURE 1966 CREATININE LEVEL 1966 POTASSIUM LEVEL 1966 DEPRESSION SCREENING 1978 SMOKING Hx and SMOKELESS TOBACCO SCREENING 12/04/1979 HEPATITIS C SCREENING 1984 HIV ONE-TIME SCREENING (18-65 YEARS) 1984 PAP SMEAR 12/04/1987 MAMMOGRAM 2006 COLOGUARD 12/04/2011 COLONOSCOPY 12/04/2011 COLORECTAL CANCER SCREENING 12/04/2011 FIT TEST 12/04/2011 FOBT 12/04/2011 SIGMOIDOSCOPY 12/04/2011 VIRTUAL COLONOSCOPY 12/04/2011 RSV VACCINE (1 - Risk 50-74 years 1-dose series) 2016 PNEUMOCOCCAL VACCINES (50+ years) (2 of 2 - PCV) 06/07/2021 06/07/2020 HEMOGLOBIN A1C 06/29/2023 12/29/2022, 12/12, 11/03/2022, Additional history exists DIABETIC EYE EXAM 12/04/2023 2022, , 02/26/2022, Additional history exists INFLUENZA VACCINE (#1) 2024 01/29/2021, 2019 COVID-19 VACCINE ( - 2024- season) 2024 01/02/2021, 12/12/2020 Adult Td,Tdap Booster 11/18/2027 11/17/2017, 015 ZOSTER VACCINES Completed 11/29/2020, 06/07/2020 HEPATITIS A VACCINES Aged Out No long er eligible based on patient's age to complete this topic HIB VACCINES Aged Out No longer eligi ble based on patient's age to complete this topic MENINGOCOCCAL VACCINES (ACWY) Aged Out No longer eligible based on patient's age to complete this topic MENINGOCOCCAL VACCINES (B) Aged Out N o longer eligible based on patient's age to complete this topic Medical Devices Not on file Insurance [facility] Care Teams Professor Of Psychiatry Relationship Specialty Start Date End Date Cynthia Rosas MD [address] [place] [address] PCP - General Internal Medicine 01/02/20 Additional Source Comments The information contained in this document represents components of the legal health record. It is not the complete legal health record.[facility]
== END 2025-03-03 10:52 | disposition home or self-care (01) ==
LOC: HO.HOSX 10:51
PROVIDERS: Visit Provider Physician Assistant
DX: M43.16 Spondylolisthesis, lumbar region (principal)
CPT/HCPCS: 72110

== ENCOUNTER → 2025-03-03 11:33 | Outpatient (BNV) | payer BC, SELFPAY | PROVIDERS: Visit Provider Radiology Diagnostic Radiology | DX: M51.369 Other intervertebral disc degeneration, lumbar region without mention of lumbar back pain or lower extremity pain (principal) | CPT/HCPCS: 72110 ==